=== PATIENT | male | born 1980 | race Caucasian/White ===

== ENCOUNTER 2017-07-01 13:30 | Emergency (ER) | payer SELFPAY ==
[~2017-07-01 13:30] MED LIST: ISOVUE-370 76%-LOCM 1 ML ONE
[2017-07-01 15:31] LABS: #Basophils 0.1 thou/uL (0.0-0.2); #Eosinphils 0.3 thou/uL (0.0-0.7); #Lymphocytes 3.1 thou/uL (1.20-3.40); #Monocytes 0.5 thou/uL (0.11-0.59); #Neutrophils 6.9 thou/uL (1.40-6.50); %Basophils 0.8 % (0.0-1.0); %Eosinophils 2.4 % (0.0-10.0); %Lymphocytes 28.5 % (21.0-51.0); %Monocytes 4.3 % (0.0-10.0); Hemoglobin 16.4 g/dL (14.0-18.0); Mean Corpuscular HGB CONC 32.8 g/dL (32.0-36.0); Mean Corpuscular Hemoglobin 30.4 pg (27.0-31.0); Mean Corpuscular Volume 92.8 fl (80.0-94.0); Mean Platelet Volume 6.7 fL (7.4-10.4); Platelet Count 240 thou/uL (130-400); RBC Distribution Width 14.9 % (11.5-14.5); Red Blood Cell (RBC) Count 5.39 mill/uL (4.70-6.10); White Blood Cell (WBC) Count 10.8 thou/uL (4.8-10.8)
[2017-07-01 15:50] LABS: Bilirubin Negative (Negative); Blood, Urine Negative (Negative); Clarity CLEAR (Clear); Glucose, Urine (Dipstick) Negative (Negative); Leukocyte Negative (Negative); Nitrite Negative (Negative); Protein, Urine (Dipstick) 30 mg/dL (Neg-Trace); Specific Gravity, Urine 1.009 (1.002-1.036); Urobilinogen 0.2 mg/dL (0.2-1.0); pH, Urine 6.5 (5.0-9.0)
[2017-07-01 15:53] LABS: Bacteria/HPF None Seen HPF (None Seen); Hyaline Casts/LPF 0-3 HYALINE CAST LPF (0-3 Hyaline); Pathc Cast-AUWi Flag 0.13 (0-2.49); RBC/HPF 0-3 HPF (0-3); Squamous Epithelial None Seen HPF (0-3); WBC/HPF 0-3 HPF (0-3)
[2017-07-01 15:57] LABS: ALT (SGPT) 49 U/L (8-55); AST (SGOT) 36 U/L (5-34); Albumin 3.8 g/dL (3.5-5.0); Alkaline Phosphatase 114 U/L (40-150); Anion Gap 12 mmol/L (10-20); BUN (Urea Nitrogen) 10 mg/dL (8.9-20.6); Bilirubin, Total 0.6 mg/dL (0.2-1.2); Calc. Creatinine Clearance 0 mL/min (70-130); Calcium 9.9 mg/dL (7.8-10.44); Carbon Dioxide 32 mmol/L (22-29); Chloride 93 mmol/L (98-107); Estimated GFR-MDRD Greater than 90; Globulin 5.7 g/dL (2.4-3.5); Glucose 144 mg/dL (70-105); Lipase 36 U/L (8-78); Potassium 4.2 mmol/L (3.5-5.1); Protein, Total 9.5 g/dL (6.0-8.3); Sodium 133 mmol/L (136-145)
--- NOTE | 2017-07-01 16:14 | CT ---
CT ABDOMEN AND PELVIS WITH CONTRAST: HISTORY: Evaluate hernia. Abdominal pain. COMPARISON: None. FINDINGS: The lung bases are clear. No pericardial effusion. The liver is markedly enlarged with cholesteatosis. There is a fat-containing umbilical hernia with a 1.4 x 1 cm neck. This does not contain bowel. The patient's full anterior abdominal wall is not included in the field of view due to habitus. No dilated loops of large or small bowel. The appendix is visualized and is normal. No free intrape ritoneal gas or fluid. Small fat-containing right-sided direct inguinal hernia. Numerous small lymph nodes in the inguinal region bilaterally. The aortoiliac contour is nonaneurysmal. Numerous small retroperitoneal periaortic lymph nodes are p resent, as well as common iliac lymph nodes and internal iliac lymph nodes, as well as pelvic sidewal l lymph nodes. The skeleton is unremarkable. There is a lot of noise artifact throughout the abdomen, making evalua tion for free air limited. The spleen, pancreas, and adrenal glands are unremarkable. The kidneys are unremarkable. IMPRESSION: 1. Fat-containing umbilical hernia with a 1.4 x 1 cm hiatus. This does not contain bowel. No evide nce of bowel obstruction. 2. Extensive noise artifact due to habitus, which limits evaluation for small locules of air, althou gh none are suspected. 3. Normal appendix. 4. Numerous small, retroperitoneal, as well as inguinal and pelvic sidewall lymph nodes. Low grade lymphoproliferative disorder is within the differential. Clinical correlation advised. 5. Hepatomegaly with steatosis. POS: OFF
== END 2017-07-01 16:35 | disposition home or self-care (01) ==
LOC: ERS 13:30
DX: K42.9 Umbilical hernia without obstruction or gangrene (principal); E11.40 Type 2 diabetes mellitus with diabetic neuropathy, unspecified; E66.9 Obesity, unspecified; F17.210 Nicotine dependence, cigarettes, uncomplicated
CPT/HCPCS: 74177; 80053; 81003; 81015; 83605; 83690; 85025; 99406

== ENCOUNTER 2017-11-08 16:57 | Inpatient (IN) | payer SELFPAY ==
[2017-11-08] MEDS ORDERED: Acetaminophen/Codeine 30-300mg Tablet ONE (17:28)
[2017-11-08 17:57] LABS: #Basophils 0.1 thou/uL (0.0-0.2); #Eosinphils 0.3 thou/uL (0.0-0.7); #Lymphocytes 3.2 thou/uL (1.20-3.40); #Monocytes 0.5 thou/uL (0.11-0.59); #Neutrophils 5.8 thou/uL (1.40-6.50); %Basophils 0.5 % (0.0-1.0); %Lymphocytes 32.6 % (21.0-51.0); %Monocytes 5.4 % (0.0-10.0); %Neutrophils 58.4 % (42.0-75.0); Hemoglobin 13.1 g/dL (14.0-18.0); Mean Corpuscular HGB CONC 34.2 g/dL (32.0-36.0); Mean Corpuscular Hemoglobin 30.2 pg (27.0-31.0); Mean Corpuscular Volume 88.3 fl (80.0-94.0); Mean Platelet Volume 6.4 fL (7.4-10.4); Platelet Count 313 thou/uL (130-400); RBC Distribution Width 14.5 % (11.5-14.5); Red Blood Cell (RBC) Count 4.32 mill/uL (4.70-6.10); White Blood Cell (WBC) Count 9.9 thou/uL (4.8-10.8)
[2017-11-08 18:17] LABS: ALT (SGPT) 53 U/L (8-55); AST (SGOT) 46 U/L (5-34); Albumin 3.2 g/dL (3.5-5.0); Alkaline Phosphatase 122 U/L (40-150); Anion Gap 13 mmol/L (10-20); BUN (Urea Nitrogen) 11 mg/dL (8.9-20.6); Bilirubin, Total 0.4 mg/dL (0.2-1.2); Calc. Creatinine Clearance 0 mL/min (70-130); Calcium 8.8 mg/dL (7.8-10.44); Carbon Dioxide 26 mmol/L (22-29); Chloride 100 mmol/L (98-107); Estimated GFR-MDRD Greater than 90; Glucose 189 mg/dL (70-105); Potassium 4.8 mmol/L (3.5-5.1); Protein, Total 8.2 g/dL (6.0-8.3); Sodium 134 mmol/L (136-145)
--- NOTE | 2017-11-08 18:44 | RAD ---
TWO VIEWS LEFT FORELE11/08/17 INDICATION: History of wound to the lea. COMPARISON: Prior exam dated 06/28/16. FINDINGS: Soft tissue wound involving the distal left lea is slightly increased in size from the comparison in 2016. There is diffuse prominent soft tissue swelling of the left foreleg. No acute osseous abnormal ity is evident. IMPRESSION: 1. Enlarging superficial wound of the anterior distal left foreleg. Diffuse lymphedema. 2. No acute osseous abnormality. POS: [facility]
[2017-11-08] MEDS ORDERED: Piperacillin/Tazobactam 4.5 GM VIAL ONE (20:17)
[2017-11-08] MEDS ORDERED: diphenhydrAMINE 50 MG/ML VIAL ONE (21:56)
[2017-11-08] MEDS ORDERED: Lorazepam 2 MG/ML VIAL ONE (22:02)
[2017-11-08] MEDS ORDERED: Propofol 1,000 MG/100 ML VIAL IV ONE (22:31)
[2017-11-08] MEDS ORDERED: Succinylcholine Chloride 20 MG/ML 10 ml SYRINGE FS ONE ×2 (22:31→22:48)
[2017-11-08 22:45] LABS: CKMB 0.9 ng/mL (0-6.6); Troponin I Less than 0.010 ng/mL (< 0.028)
[2017-11-08] MEDS ORDERED: EPINEPHrine 1 MG/10 ML Abboject SYRINGE ONE (23:00)
[2017-11-08 23:23] LABS: Bilirubin Negative (Negative); Blood, Urine Negative (Negative); Clarity CLEAR (Clear); Glucose, Urine (Dipstick) 100 mg/dL (Negative); Leukocyte Negative (Negative); Nitrite Negative (Negative); Protein, Urine (Dipstick) 30 mg/dL (Neg-Trace); Specific Gravity, Urine 1.025 (1.002-1.036); pH, Urine 6.5 (5.0-9.0)
[2017-11-08 23:25] LABS: Bacteria/HPF None Seen HPF (None Seen); Hyaline Casts/LPF 0-3 HYALINE CAST LPF (0-3 Hyaline); Pathc Cast-AUWi Flag 0.14 (0-2.49); RBC/HPF 0-3 HPF (0-3); Squamous Epithelial None Seen HPF (0-3); WBC/HPF None Seen HPF (0-3)
--- NOTE | 2017-11-08 23:41 | RAD ---
AP VIEW OF THE CHEST: 11/08/17 INDICATION: Emergency examination. COMPARISON: Prior exam dated 06/03/03. FINDINGS: Patient is intubated. ET tube tip is seen 3.8 cm from the level of the parth. Gastric catheter proje cts below the left hemidiaphragm beyond the field of view. The visualized lungs are clear. The heart size is accentuated by the exam technique but is felt to be mildly prominent. There is slight promine nce of the pulmonary vasculature. No pleural effusions grossly evident. No definite pneumothorax is n oted. IMPRESSION: 1. Intubation. 2. Gastric catheter placement. 3. Mild cardiomegaly with mild pulmonary vascular congestion. POS: [facility]
[2017-11-09] MEDS ORDERED: Norepinephrine 8 MG/0.9% NS 250 ML ONE (00:11)
[2017-11-09] MEDS ORDERED: Acetaminophen 325 MG TAB PO PRN (02:07)
[2017-11-09] MEDS ORDERED: Ondansetron HCl/PF 4 MG/2 ML Vial IVP PRN ×2 (02:07→02:12)
[2017-11-09] MEDS ORDERED: Ondansetron ODT 4 MG TAB SL PRN (02:07)
[2017-11-09] MEDS ORDERED: Norepinephrine 8 MG in Sodium Chloride 0.9% 250 ML 250 ML IVPB PRN (02:12)
[2017-11-09] MEDS ORDERED: Bisacodyl 10 MG SUPP PR PRN (02:12)
[2017-11-09] MEDS ORDERED: Acetaminophen 650 MG Suppository PR PRN (02:12)
[2017-11-09] MEDS ORDERED: CCU Electrolyte Replacement 1 EACH IVPB SCH (02:12)
[2017-11-09] MEDS ORDERED: Insulin Regular 300 UNITS/3 ML VIAL SC PRN (02:12)
[2017-11-09] MEDS ORDERED: Ventilator Sedation Protocol 1 EACH FS SCH (02:15)
[2017-11-09] MEDS ORDERED: Fentanyl BOLUS 250 ML IVPB PRN (02:19)
[2017-11-09] MEDS ORDERED: Propofol BOLUS 1,000 MG/100 ML VIAL IV PRN (02:19)
[2017-11-09] MEDS ORDERED: DISCONTINUE PREVIOUS NARCOTIC PAIN MEDICATIONS AND BENZODIAZEPINES FS SCH (02:19)
[2017-11-09] MEDS ORDERED: Morphine 4 MG/ML VIAL SLOW IVP PRN (02:19)
[2017-11-09] MEDS ORDERED: Lorazepam 2 MG/ML VIAL SLOW IVP PRN (02:19)
[2017-11-09] MEDS ORDERED: Potassium Phosphate 9 MMOL in Sodium Chloride 0.9% 100 ML IVPB PRN (02:22)
[2017-11-09] MEDS ORDERED: Potassium Chloride 20 MEQ TAB PO PRN (02:22)
[2017-11-09] MEDS ORDERED: Potassium Phosphate 12 MMOL in Sodium Chloride 0.9% 250 ML 250 ML IV PRN (02:22)
[2017-11-09] MEDS ORDERED: CCU ELECTROLYTE REPLACEMENT PROTOCOL FS PRN (02:22)
[2017-11-09] MEDS ORDERED: Potassium Phosphate 15 MMOL in Sodium Chloride 0.9% 250 ML 250 ML IV PRN (02:22)
[2017-11-09] MEDS ORDERED: Magnesium Oxide 400 MG TAB PO PRN ×2 (02:22)
[2017-11-09] MEDS ORDERED: Magnesium 2 GM/NS 0.9% 100 ML 2 GM in Premix Bag 1 BAG IVPB PRN (02:22)
[2017-11-09] MEDS ORDERED: Potassium Chloride 40 MEQ in Sodium Chloride 0.9% 250 ML 250 ML IVPB PRN (02:22)
[2017-11-09] MEDS ORDERED: Dextrose 5% in Water 1,000 ML IV PRN ×2 (02:32→12:41)
[2017-11-09] MEDS ORDERED: Dextrose 50% Abboject 50 ML SYRINGE IVP PRN (02:32)
[2017-11-09] MEDS ORDERED: Piperacillin/Tazobactam 3.375 GM in Sodium Chloride 0.9% 100 ML IVPB SCH (03:00)
[2017-11-09] MEDS ORDERED: Succinylcholine Chloride 20 MG/ML 10 ml SYRINGE FS ONE (03:00)
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
[2017-11-09] MEDS ORDERED: Vancomycin HCl 1 GM in Premix Bag 1 BAG IVPB SCH ×2 (03:30→10:15)
[2017-11-09] MEDS: Propofol 1,000 MG/100 ML VIAL IV PRN ×8 (03:33→22:37)
[2017-11-09] MEDS: Sodium Chloride 0.9% 1,000 ML IV SCH ×3 (03:33→18:43)
[2017-11-09 03:34] LABS: CO2 Tension 52.6 mmHg (35.0-45.0)
[2017-11-09 03:35] LABS: Actual Bicarbonate (HCO3a) 25.3 mEq/L (22-26); Base Excess (BEa) -1.8 mEq/L (0 (+/-) 2.5); Calcium, Ionized 1.1 mmol/L (1.12-1.30); Hematocrit-ABG 49.1 % (42.0-52.0); Hemoglobin (Hb) 14.7 g/dL (14.0-18.0); Puncture Site RRAD
--- NOTE | 2017-11-09 05:01 | PDOC.EVN ---
Event Note - Event Note Event Note: Code Arturo called at 0431 when patient self-extubated. Residents arrived at room at 0434 and patient's saturations were noted to be in the low 80s with pulse in the 60s. In anticipation of a difficult airway, anesthesia was paged to the bedside. Nasal cannula applied with immediate rise on O2 sat. Patient was then noted to become progressively bradycardic to the 40s with palpable pulse and desaturating again to the 70s. Due to inability to adequately ventilate patient with bag-mask ventilation, 30 mg Etomidate and 100 mg Succinylcholine were administered IV and glidescope was used to visualie airway. Inadequate visualization noted, patient bagged again with appropriate rise on O2 saturation and glidescope tubing changed. At this time, LATANYA Fisher was at bedside and assisted in 2nd attempt with successful intubation with 8-0 cuffed ET tube with good color change and BL breath sounds noted. Patient otherwise tachycardic but hemodynamically stable. STAT CXR ordered to confirm tube placement showed ET tube to be above parth.
[2017-11-09] MEDS: Piperacillin/Tazobactam 3.375 GM in Sodium Chloride 0.9% 100 ML IVPB SCH ×3 (06:43→17:48)
[2017-11-09] MEDS: fentaNYL Citrate/PF 2,000 MCG in Sodium Chloride 0.9% 60 ML IV SCH (07:54)
[2017-11-09] MEDS: Enoxaparin Sodium 40 MG/0.4 ML SYRINGE SC SCH (07:59)
[2017-11-09 08:41] LABS: Hemoglobin 13.9 g/dL (14.0-18.0); Mean Corpuscular HGB CONC 33.1 g/dL (32.0-36.0); Mean Corpuscular Hemoglobin 29.6 pg (27.0-31.0); Mean Corpuscular Volume 89.6 fl (80.0-94.0); Mean Platelet Volume 7.2 fL (7.4-10.4); Platelet Count 465 thou/uL (130-400); RBC Distribution Width 14.9 % (11.5-14.5); Red Blood Cell (RBC) Count 4.71 mill/uL (4.70-6.10); White Blood Cell (WBC) Count 26.5 thou/uL (4.8-10.8)
[2017-11-09 08:49] LABS: Anion Gap 11 mmol/L (10-20); BUN (Urea Nitrogen) 16 mg/dL (8.9-20.6); Calc. Creatinine Clearance 180 mL/min (70-130); Calcium 7.5 mg/dL (7.8-10.44); Carbon Dioxide 26 mmol/L (22-29); Chloride 103 mmol/L (98-107); Estimated GFR-MDRD 59; Glucose 278 mg/dL (70-105); Potassium 5.3 mmol/L (3.5-5.1); Sodium 135 mmol/L (136-145)
[2017-11-09 08:59] LABS: Band 8 % (5-11); Eosinophils 2 % (0-10); Lymphocytes 12 % (21-51); MDiff Complete? YES; Neutrophil 75 % (42-75); Reactive Lymphocytes 3 % (0-10)
[2017-11-09] MEDS: Famotidine/PF 20 mg/2ml Vial SLOW IVP SCH (10:39)
--- NOTE | 2017-11-09 11:22 | RAD ---
PORTABLE AP CHEST XRAY: DATE: 11/09/17. HISTORY: Central line placement. COMPARISON: 10/31/17. FINDINGS: Endotracheal tube is noted in place with the tip overlying the T4 vertebral body above the level of t he parth. Nasogastric tube is noted in place which courses into the left upper quadrant, but the ti p is not visualized. A right internal jugular vein central venous catheter is noted in place with th e tip overlying the expected location of the right atrium. The right lung apex is partially occluded from view, but no obvious pneumothorax is seen. There is bibasilar atelectasis present. A tiny lef t pleural effusion cannot be entirely excluded, but the bronchovascular markings and cardiac silhouet te are accentuated by shallow depth of inspiration and portable technique. IMPRESSION: 1. Right internal jugular vein central venous catheter noted in place. While the most superior aspe ct right lung apex is excluded from view, no obvious pneumothorax is seen and there is no pleural eff usion. 2. Endotracheal tube and nasogastric tube remain in place. 3. Accentuation of bronchovascular markings due to a shallow depth of inspiration. POS: [facility]
--- NOTE | 2017-11-09 11:25 | RAD ---
CHEST 1 VIEW: COMPARISON: 11/09/17. History Reintubation. FINDINGS: The previously noted nasogastric tube is no longer seen. Endotracheal tube extends beyond the clavic le and terminates approximately 1.5 cm above the parth. Stable right-sided central venous catheter. There is opacification of the left hemithorax likely due to atelectasis. No pneumothorax. IMPRESSION: 1. Endotracheal tube as above. 2. Interval increased opacification of the left lung, possibly due to atelectasis. CODE T POS: [facility]
[2017-11-09] MEDS ORDERED: Dextrose 50% Abboject 50 ML SYRINGE SLOW IVP PRN (12:41)
[2017-11-09] MEDS: HumaLOG 300 UNITS/3 ML VIAL SC PRN ×2 (13:02→17:49)
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
[2017-11-09 22:25] LABS: Amphetamine Not Detected (NotDetected); Barbiturates Screen Not Detected (NotDetected); Benzodiazepine Screen Detected (NotDetected); Cocaine Metabolite Screen Not Detected (NotDetected); Medtox Control Line Valid? VALID (VALID); Medtox Reader # READER 1; Methadone Not Detected (NotDetected); Methamphetamine Not Detected (NotDetected); Opiate Screen Detected (NotDetected); Oxycodone Screen Not Detected (NotDetected); Phencyclidine (PCP) Not Detected (NotDetected); THC/Cannabinoid Screen Not Detected (NotDetected); Tricyclic Screen Not Detected (NotDetected)
[2017-11-10] MEDS: Sodium Chloride 0.9% 1,000 ML IV SCH ×3 (00:40→16:52)
[2017-11-10] MEDS: Famotidine/PF 20 mg/2ml Vial SLOW IVP SCH ×2 (00:41→09:48)
[2017-11-10] MEDS: Propofol 1,000 MG/100 ML VIAL IV PRN ×9 (00:41→21:34)
[2017-11-10] MEDS: Piperacillin/Tazobactam 3.375 GM in Sodium Chloride 0.9% 100 ML IVPB SCH ×5 (00:42→23:38)
[2017-11-10] MEDS: HumaLOG 300 UNITS/3 ML VIAL SC PRN ×5 (00:57→23:39)
[2017-11-10] MEDS: fentaNYL Citrate/PF 2,000 MCG in Sodium Chloride 0.9% 60 ML IV SCH ×2 (03:54→20:53)
[2017-11-10 06:44] LABS: Hemoglobin 12.1 g/dL (14.0-18.0); Mean Corpuscular HGB CONC 32.6 g/dL (32.0-36.0); Mean Corpuscular Hemoglobin 29.3 pg (27.0-31.0); Mean Corpuscular Volume 89.9 fl (80.0-94.0); Mean Platelet Volume 6.5 fL (7.4-10.4); Platelet Count 301 thou/uL (130-400); RBC Distribution Width 14.8 % (11.5-14.5); Red Blood Cell (RBC) Count 4.11 mill/uL (4.70-6.10)
[2017-11-10 07:07] LABS: Anion Gap 9 mmol/L (10-20); BUN (Urea Nitrogen) 13 mg/dL (8.9-20.6); Calc. Creatinine Clearance 236 mL/min (70-130); Calcium 7.4 mg/dL (7.8-10.44); Carbon Dioxide 24 mmol/L (22-29); Chloride 107 mmol/L (98-107); Estimated GFR-MDRD 78; Glucose 284 mg/dL (70-105); Potassium 4.6 mmol/L (3.5-5.1); Sodium 135 mmol/L (136-145)
[2017-11-10 07:13] LABS: Actual Bicarbonate (HCO3a) 22.9 mEq/L (22-26); Base Excess (BEa) -2.2 mEq/L (0 (+/-) 2.5); CO2 Tension 40.4 mmHg (35.0-45.0); Hematocrit-ABG 36.2 % (42.0-52.0); Hemoglobin (Hb) 11.2 g/dL (14.0-18.0); O2 Tension (PaO2) 70.7 mmHg (80.0-100.0); pH, Arterial 7.37 (7.35-7.45)
[2017-11-10 07:14] LABS: Calcium, Ionized 1.1 mmol/L (1.12-1.30); Puncture Site LRA
[2017-11-10] MEDS ORDERED: Propofol 1,000 MG/100 ML VIAL IV ONE (07:32)
[2017-11-10 07:57] LABS: Band 10 % (5-11); Eosinophils 1 % (0-10); Lymphocytes 10 % (21-51); MDiff Complete? YES; Metamyelocyte 1 % (0-0); Monocytes 3 % (0-10); Neutrophil 74 % (42-75); RBC Morphology Normal; Reactive Lymphocytes 1 % (0-10)
[2017-11-10] MEDS: Pantoprazole 40 MG VIAL IVP SCH (09:14)
[2017-11-10] MEDS: Enoxaparin Sodium 40 MG/0.4 ML SYRINGE SC SCH (09:18)
--- NOTE | 2017-11-10 09:41 | RAD ---
CHEST 1 VIEW: Date: 11/10/17 HISTORY: Dyspnea. Follow-up. COMPARISON: 11/09/17. FINDINGS: Cardiac silhouette remains magnified, enlarged, and partially obscured by worsening patchy bibasilar infiltrates. Pulmonary vasculature is more engorged with increasing bilateral perihilar infiltrates. Endotracheal catheter tip is now approximately 2.0 cm above the parth. Other lines and tubes are unc hanged in position. rotary cutter feeder leads overlie the chest. IMPRESSION: Worsening pulmonary edema. POS: [facility]
--- NOTE | 2017-11-10 13:20 | PDOC.PN ---
- Subjective Encounter Start Date: 11/10/17 Encounter Start Time: 09:00 -: old records requested/rev Patient seen and examined for respiratory failure. No overnight events - Objective Resuscitation Status: Resuscitation Status FULL:Full Resuscitation MAR Reviewed: Yes Vital Signs & Weight: Vital Signs (12 hours) Temp Pulse Resp BP Pulse Ox 11/10/17 13:11 70 106/50 L 11/10/17 12:00 98.4 F 11/10/17 10:47 73 99/45 L 11/10/17 10:00 16 11/10/17 08:00 98.3 F 80 16 92 L 11/10/17 07:00 98.8 F 11/10/17 06:55 75 112/48 L 11/10/17 06:53 74 16 93 L 11/10/17 06:00 18 11/10/17 05:00 98.9 F 11/10/17 04:01 73 11/10/17 04:00 16 11/10/17 02:00 16 Weight Weight 386 lb 0.47 oz Most Recent Monitor Data Heart Rate from ECG 74 NIBP 97/44 NIBP BP-Mean 63 Respiration from ECG 16 SpO2 92 I&O: 11/09/17 11/10/17 11/11/17 06:59 06:59 06:59 Intake Total 3692.4 Output Total 345 2110 520 Balance -345 1582.4 -520 Result Diagrams: 11/10/17 06:00 11/10/17 06:00 Additional Labs: Accuchecks 11/10/17 11/10/17 11/10/17 09:43 06:04 00:58 POC Glucose 221 H 264 H 270 H 11/09/17 17:48 POC Glucose 204 H Radiology Reviewed by me: Yes (chest xray) EKG Reviewed by me: Yes (nsr) Phys Exam - Physical Examination Constitutional: NAD intubated HEENT: PERRLA, sclera anicteric Neck: no JVD, supple Respiratory: no wheezing, no rales, no rhonchi limited due to obesity Cardiovascular: RRR, no significant murmur, no rub Gastrointestinal: soft, no distention, positive bowel sounds obesity+ chronic skin changes, with wound over left leg Lymphatic: no nodes Dx/Plan (1) Acute encephalopathy Code(s): G93.40 - ENCEPHALOPATHY, UNSPECIFIED Status: Acute (2) Acute respiratory failure with hypoxia Code(s): J96.01 - ACUTE RESPIRATORY FAILURE WITH HYPOXIA Status: Acute (3) Hypotension Status: Acute (4) HLD (hyperlipidemia) Code(s): E78.5 - HYPERLIPIDEMIA, UNSPECIFIED Status: Chronic (5) Lymphedema of both lower extremities Code(s): I89.0 - LYMPHEDEMA, NOT ELSEWHERE CLASSIFIED Status: Chronic (6) Morbid obesity with BMI of 45.0-49.9, adult Code(s): E66.01 - MORBID (SEVERE) OBESITY DUE TO EXCESS CALORIES; Z68.42 - BODY MASS INDEX (BMI) 45.0-49.9, ADULT Status: Chronic (7) Tobacco abuse Code(s): Z72.0 - TOBACCO USE Status: Chronic (8) Wound of left lower extremity Code(s): S81.802A - UNSPECIFIED OPEN WOUND, LEFT LOWER LEG, INITIAL ENCOUNTER Status: Chronic (9) DAVID (obstructive sleep apnea) Code(s): G47.33 - OBSTRUCTIVE SLEEP APNEA (ADULT) (PEDIATRIC) Status: Suspected (10) Acute kidney failure Status: Resolved - Plan cont current plan of care, continue antibiotics * vent as per pulmonary * continue zosyn * wound care * medication reviewed as below * symptomatic treatment * Dc IVF * continue solumedrol * levophed if needed. Review of Systems - Review of Systems Other: unable to review due to intubated status - Medications/Allergies Allergies/Adverse Reactions: Allergies Allergy/AdvReac Type Severity Reaction Status Date / Time vancomycin Allergy Verified 11/09/17 05:23 Medications: Current Medications Acetaminophen (Tylenol) 650 mg SD Q4H PRN PRN Reason: Headache/Fever or Pain Acetaminophen (Tylenol) 650 mg PER TUBE Q4H PRN PRN Reason: Headache/Fever or Pain Albuterol/Ipratropium (Duoneb) 3 ml NEB [id number] [facility] Last Admin: 11/10/17 10:46 Dose: 3 ml Bisacodyl (Dulcolax) 10 mg SD Q24H PRN PRN Reason: Constipation Dextrose/Water (Dextrose 50%) 25 gm SLOW IVP PRN PRN PRN Reason: Hypoglycemia Enoxaparin Sodium (Lovenox) 40 mg SC 0900 [facility] Last Admin: 11/10/17 09:18 Dose: 40 mg Glucagon (Glucagon) 1 mg IM PRN PRN PRN Reason: Hypoglycemia Fentanyl Citrate 2,000 mcg/ (Sodium Chloride) 100 mls @ 0 mls/hr IV INF RADHA PRN Reason: As Directed Last Admin: 11/10/17 03:54 Dose: 100 mls Norepinephrine Bitartrate 8 mg (/ Sodium Chloride) 258 mls @ 0 mls/hr IVPB PRN PRN; Protocol; Titrate PRN Reason: To maintain MAP > 65 Last Admin: 11/09/17 12:56 Dose: 258 mls Fentanyl Citrate (Fentanyl Bolus) 250 mls @ 0 mls/hr IVPB PRN PRN; As Directed PRN Reason: Breakthrough pain/agitation Stop: 12/09/17 02:19 Potassium Chloride 40 meq/ (Sodium Chloride) 270 mls @ 135 mls/hr IVPB ASDIR PRN PRN Reason: FOR SERUM K+ 2.5 - 3.5 Potassium Chloride 40 meq/ (Device) 100 mls @ 50 mls/hr IVPB ASDIR PRN PRN Reason: FOR SERUM K+ 2.5 - 3.5 Magnesium Sulfate 1 gm/ Sodium (Chloride) 102 mls @ 102 mls/hr IV PRN PRN PRN Reason: MAG LEVEL 1.4 - 2.0 Magnesium Sulfate 2 gm/ Device 100 mls @ 100 mls/hr IVPB ASDIR PRN PRN Reason: MAGNESIUM < 1.4 Potassium Phosphate 9 mmol/ (Sodium Chloride) 103 mls @ 25.75 mls/hr IVPB ASDIR PRN PRN Reason: Phosphate 1.0-1.8 Potassium Phosphate 12 mmol/ (Sodium Chloride) 254 mls @ 63.5 mls/hr IV ASDIR PRN PRN Reason: Serum phosphate 0.5-0.9 Potassium Phosphate 15 mmol/ (Sodium Chloride) 255 mls @ 63.75 mls/hr IV ASDIR PRN PRN Reason: Serum Phos < 0.5 Piperacillin Sod/Tazobactam (Sod 3.375 gm/ Sodium Chloride) 100 mls @ 200 mls/ hr IVPB Q6HR [facility] Last Admin: 11/10/17 11:33 Dose: 100 mls Dextrose/Water (D5w) 1,000 mls @ 0 mls/hr IV .Q0M PRN; As Directed PRN Reason: Hypoglycemia Insulin Human Lispro (Humalog) 0 units SC .AGGRESSIVE SLIDING PRN; Protocol PRN Reason: AGGRESSIVE SLIDING SCALE Last Admin: 11/10/17 09:42 Dose: 6 unit Lorazepam (Ativan) 2 mg SLOW IVP Q1H PRN PRN Reason: Breakthrough agitation Stop: 12/09/17 02:19 Magnesium Oxide (Magnesium Oxide) 400 mg PO BIDPRN PRN PRN Reason: FOR SERUM MAG 1.4 - 2.0 Magnesium Oxide (Magnesium Oxide) 800 mg PO PRN PRN PRN Reason: FOR SERUM MAG < 1.4 Methylprednisolone Sodium Succinate (Solu-Medrol) 40 mg IVP DAILY [facility] Last Admin: 11/10/17 09:35 Dose: 40 mg Miscellaneous Medication (Phos-Nak) 1 pkt PO TIDPRN PRN PRN Reason: FOR PHOS LEVEL 1.0 - 1.8 Miscellaneous Medication (Phos-Nak) 2 pkt PO TIDPRN PRN PRN Reason: FOR PHOS LEVEL 0.5 - 1.0 Morphine Sulfate (Morphine) 2 mg SLOW IVP Q1H PRN PRN Reason: breakthrough pain/agitation Stop: 12/09/17 02:19 Discontinue Previous Narcotic Pain Medications And Benzodiazepines 1 each FS .ONE RADHA Stop: 12/09/17 02:19 Ccu Electrolyte (Replacement Protocol) 0 each FS PRN PRN PRN Reason: FOR ELECTROLYTE REPLACEMENT Ondansetron HCl (Zofran) 4 mg IVP Q6H PRN PRN Reason: Nausea/Vomiting Pantoprazole Sodium (Protonix) 40 mg IVP 0900 [facility] Last Admin: 11/10/17 09:14 Dose: 40 mg Potassium Chloride (K-Dur) 40 meq PO ASDIR PRN PRN Reason: FOR SERUM K+ 2.5 - 3.5 Potassium Chloride (Klor-Con) 40 meq PER TUBE ASDIR PRN PRN Reason: FOR SERUM K+ 2.5-3.5 Propofol (Diprivan) 1,000 mg IV INF PRN; Protocol PRN Reason: TO ACHIEVE GOAL RASS Stop: 12/09/17 02:19 Last Admin: 11/10/17 11:36 Dose: 1,000 mg Propofol (Diprivan Bolus) 20 mg IV Q5MIN PRN PRN Reason: BREAKTHROUGH AGITATION Stop: 12/09/17 02:19
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
[2017-11-11] MEDS: Propofol 1,000 MG/100 ML VIAL IV PRN ×10 (00:23→19:00)
[2017-11-11] MEDS: Piperacillin/Tazobactam 3.375 GM in Sodium Chloride 0.9% 100 ML IVPB SCH ×4 (06:19→22:59)
[2017-11-11 06:20] LABS: Anion Gap 10 mmol/L (10-20); BUN (Urea Nitrogen) 14 mg/dL (8.9-20.6); Calc. Creatinine Clearance 311 mL/min (70-130); Calcium 7.6 mg/dL (7.8-10.44); Carbon Dioxide 23 mmol/L (22-29); Chloride 108 mmol/L (98-107); Estimated GFR-MDRD Greater than 90; Glucose 150 mg/dL (70-105); Potassium 4.3 mmol/L (3.5-5.1); Sodium 137 mmol/L (136-145)
[2017-11-11 06:26] LABS: Band 2 % (5-11); Hemoglobin 10.8 g/dL (14.0-18.0); Lymphocytes 22 % (21-51); MDiff Complete? YES; Mean Corpuscular HGB CONC 31.7 g/dL (32.0-36.0); Mean Corpuscular Hemoglobin 28.4 pg (27.0-31.0); Mean Corpuscular Volume 89.6 fl (80.0-94.0); Mean Platelet Volume 6.4 fL (7.4-10.4); Monocytes 2 % (0-10); Neutrophil 74 % (42-75); Platelet Count 275 thou/uL (130-400); White Blood Cell (WBC) Count 13.3 thou/uL (4.8-10.8)
[2017-11-11] MEDS: Enoxaparin Sodium 40 MG/0.4 ML SYRINGE SC SCH (09:33)
[2017-11-11] MEDS: Pantoprazole 40 MG VIAL IVP SCH (09:33)
--- NOTE | 2017-11-11 09:45 | RAD ---
PORTABLE AP CHEST RADIOGRAPH: Date: 11-11-17 History: Follow up evaluation. Patient on ventilator. Comparison: 11-10-17 FINDINGS: Endotracheal tube, nasogastric tube, and right internal jugular vein central venous catheters remain in place. Cardiac silhouette is enlarged and magnified by projection. There does appear to be increas ing pulmonary vascular congestion. However, the patchy opacities in the right perihilar regions are m ildly improved. However, the bilateral perihilar interstitial opacities do persist and may be related to asymmetric pulmonary edema. No other interval change. IMPRESSION: 1. Mild improvement in the interstitial opacities, but bilateral perihilar interstitial densities do persist and findings may be related to pulmonary edema. 2. Cardiomegaly. 3. Lines and tubes stable in position. POS: OFF
[2017-11-11] MEDS ORDERED: Atropine Sulfate 1 mg/10 ml Syringe ONE (11:42)
--- NOTE | 2017-11-11 13:00 | PDOC.PN ---
- Subjective Encounter Start Date: 11/11/17 Encounter Start Time: 09:45 Patient seen and examined for respi failure. No overnight events - Objective Resuscitation Status: Resuscitation Status FULL:Full Resuscitation MAR Reviewed: Yes Vital Signs & Weight: Vital Signs (12 hours) Pulse Resp BP Pulse Ox 11/11/17 10:23 65 120/77 11/11/17 10:22 65 16 93 L 11/11/17 09:17 66 11/11/17 07:15 64 97/45 L 11/11/17 06:00 19 11/11/17 04:00 18 11/11/17 02:40 79 97/45 L 11/11/17 02:00 16 Weight Admit Weight 373 lb Weight 376 lb 15.847 oz Most Recent Monitor Data Heart Rate from ECG 62 NIBP 120/77 NIBP BP-Mean 85 Respiration from ECG 19 SpO2 96 I&O: 11/10/17 11/11/17 11/12/17 06:59 06:59 06:59 Intake Total 3692.4 4180.15 Output Total 2110 2470 Balance 1582.4 1710.15 Result Diagrams: 11/11/17 05:00 11/11/17 05:00 Additional Labs: Accuchecks 11/11/17 11/11/17 11/10/17 12:11 05:04 23:34 POC Glucose 194 H 149 H 248 H 11/10/17 11/10/17 16:31 16:29 POC Glucose 272 H 275 H EKG Reviewed by me: Yes (nsr) Phys Exam - Physical Examination Constitutional: NAD on ventilator HEENT: PERRLA, sclera anicteric Neck: no JVD, supple Respiratory: no wheezing, no rales, no rhonchi Cardiovascular: RRR, no significant murmur, no rub Gastrointestinal: soft, no distention, positive bowel sounds morbid obesity+ chronic skin changes both leg with wound on left leg unable to assess Lymphatic: no nodes Deviation from normal: unable to assess Dx/Plan (1) Acute encephalopathy Code(s): G93.40 - ENCEPHALOPATHY, UNSPECIFIED Status: Acute (2) Acute respiratory failure with hypoxia Code(s): J96.01 - ACUTE RESPIRATORY FAILURE WITH HYPOXIA Status: Acute (3) Hypotension Status: Acute (4) HLD (hyperlipidemia) Code(s): E78.5 - HYPERLIPIDEMIA, UNSPECIFIED Status: Chronic (5) Lymphedema of both lower extremities Code(s): I89.0 - LYMPHEDEMA, NOT ELSEWHERE CLASSIFIED Status: Chronic (6) Morbid obesity with BMI of 45.0-49.9, adult Code(s): E66.01 - MORBID (SEVERE) OBESITY DUE TO EXCESS CALORIES; Z68.42 - BODY MASS INDEX (BMI) 45.0-49.9, ADULT Status: Chronic (7) Tobacco abuse Code(s): Z72.0 - TOBACCO USE Status: Chronic (8) Wound of left lower extremity Code(s): S81.802A - UNSPECIFIED OPEN WOUND, LEFT LOWER LEG, INITIAL ENCOUNTER Status: Chronic (9) DAVID (obstructive sleep apnea) Code(s): G47.33 - OBSTRUCTIVE SLEEP APNEA (ADULT) (PEDIATRIC) Status: Suspected (10) Acute kidney failure Status: Resolved - Plan cont current plan of care, plan discussed w/ family, continue antibiotics, social media marketer, respiratory therapy * I spoke with pt's mother and updated about current condition * medication reviewed as below * symptomatic treatment * vent as per pulmonary * wound care * continue empiric antibiotics * will need placement once stable for discharge. Review of Systems - Review of Systems Other: unable to review as pt is intubated - Medications/Allergies Allergies/Adverse Reactions: Allergies Allergy/AdvReac Type Severity Reaction Status Date / Time vancomycin Allergy Verified 11/09/17 05:23 Medications: Current Medications Acetaminophen (Tylenol) 650 mg LA Q4H PRN PRN Reason: Headache/Fever or Pain Acetaminophen (Tylenol) 650 mg PER TUBE Q4H PRN PRN Reason: Headache/Fever or Pain Albuterol/Ipratropium (Duoneb) 3 ml NEB [id number] REPLACED BY [facility] Last Admin: 11/11/17 10:22 Dose: 3 ml Bisacodyl (Dulcolax) 10 mg LA Q24H PRN PRN Reason: Constipation Dextrose/Water (Dextrose 50%) 25 gm SLOW IVP PRN PRN PRN Reason: Hypoglycemia Enoxaparin Sodium (Lovenox) 40 mg SC 0900 REPLACED BY [facility] Last Admin: 11/11/17 09:33 Dose: 40 mg Glucagon (Glucagon) 1 mg IM PRN PRN PRN Reason: Hypoglycemia Haloperidol Lactate (Haldol) 10 mg IM Q4H REPLACED BY [facility] Fentanyl Citrate 2,000 mcg/ (Sodium Chloride) 100 mls @ 0 mls/hr IV INF RADHA PRN Reason: As Directed Last Admin: 11/10/17 20:53 Dose: 100 mls Norepinephrine Bitartrate 8 mg (/ Sodium Chloride) 258 mls @ 0 mls/hr IVPB PRN PRN; Protocol; Titrate PRN Reason: To maintain MAP > 65 Last Admin: 11/09/17 12:56 Dose: 258 mls Fentanyl Citrate (Fentanyl Bolus) 250 mls @ 0 mls/hr IVPB PRN PRN; As Directed PRN Reason: Breakthrough pain/agitation Stop: 12/09/17 02:19 Potassium Chloride 40 meq/ (Sodium Chloride) 270 mls @ 135 mls/hr IVPB ASDIR PRN PRN Reason: FOR SERUM K+ 2.5 - 3.5 Potassium Chloride 40 meq/ (Device) 100 mls @ 50 mls/hr IVPB ASDIR PRN PRN Reason: FOR SERUM K+ 2.5 - 3.5 Magnesium Sulfate 1 gm/ Sodium (Chloride) 102 mls @ 102 mls/hr IV PRN PRN PRN Reason: MAG LEVEL 1.4 - 2.0 Magnesium Sulfate 2 gm/ Device 100 mls @ 100 mls/hr IVPB ASDIR PRN PRN Reason: MAGNESIUM < 1.4 Potassium Phosphate 9 mmol/ (Sodium Chloride) 103 mls @ 25.75 mls/hr IVPB ASDIR PRN PRN Reason: Phosphate 1.0-1.8 Potassium Phosphate 12 mmol/ (Sodium Chloride) 254 mls @ 63.5 mls/hr IV ASDIR PRN PRN Reason: Serum phosphate 0.5-0.9 Potassium Phosphate 15 mmol/ (Sodium Chloride) 255 mls @ 63.75 mls/hr IV ASDIR PRN PRN Reason: Serum Phos < 0.5 Piperacillin Sod/Tazobactam (Sod 3.375 gm/ Sodium Chloride) 100 mls @ 200 mls/ hr IVPB Q6HR RADHA Last Admin: 11/11/17 11:51 Dose: 100 mls Dextrose/Water (D5w) 1,000 mls @ 0 mls/hr IV .Q0M PRN; As Directed PRN Reason: Hypoglycemia Insulin Human Lispro (Humalog) 0 units SC .AGGRESSIVE SLIDING PRN; Protocol PRN Reason: AGGRESSIVE SLIDING SCALE Last Admin: 11/10/17 23:39 Dose: 4 unit Lorazepam (Ativan) 2 mg SLOW IVP Q1H PRN PRN Reason: Breakthrough agitation Stop: 12/09/17 02:19 Lorazepam (Ativan) 1 mg SLOW IVP Q4H REPLACED BY [facility] Magnesium Oxide (Magnesium Oxide) 400 mg PO BIDPRN PRN PRN Reason: FOR SERUM MAG 1.4 - 2.0 Magnesium Oxide (Magnesium Oxide) 800 mg PO PRN PRN PRN Reason: FOR SERUM MAG < 1.4 Methylprednisolone Sodium Succinate (Solu-Medrol) 40 mg IVP DAILY REPLACED BY [facility] Last Admin: 11/11/17 09:33 Dose: 40 mg Miscellaneous Medication (Phos-Nak) 1 pkt PO TIDPRN PRN PRN Reason: FOR PHOS LEVEL 1.0 - 1.8 Miscellaneous Medication (Phos-Nak) 2 pkt PO TIDPRN PRN PRN Reason: FOR PHOS LEVEL 0.5 - 1.0 Morphine Sulfate (Morphine) 2 mg SLOW IVP Q1H PRN PRN Reason: breakthrough pain/agitation Stop: 12/09/17 02:19 Discontinue Previous Narcotic Pain Medications And Benzodiazepines 1 each FS .ONE RADHA Stop: 12/09/17 02:19 Ccu Electrolyte (Replacement Protocol) 0 each FS PRN PRN PRN Reason: FOR ELECTROLYTE REPLACEMENT Ondansetron HCl (Zofran) 4 mg IVP Q6H PRN PRN Reason: Nausea/Vomiting Pantoprazole Sodium (Protonix) 40 mg IVP 0900 REPLACED BY [facility] Last Admin: 11/11/17 09:33 Dose: 40 mg Potassium Chloride (K-Dur) 40 meq PO ASDIR PRN PRN Reason: FOR SERUM K+ 2.5 - 3.5 Potassium Chloride (Klor-Con) 40 meq PER TUBE ASDIR PRN PRN Reason: FOR SERUM K+ 2.5-3.5 Propofol (Diprivan) 1,000 mg IV INF PRN; Protocol PRN Reason: TO ACHIEVE GOAL RASS Stop: 12/09/17 02:19 Last Admin: 11/11/17 11:54 Dose: 1,000 mg Propofol (Diprivan Bolus) 20 mg IV Q5MIN PRN PRN Reason: BREAKTHROUGH AGITATION Stop: 12/09/17 02:19
[2017-11-11] MEDS: HumaLOG 300 UNITS/3 ML VIAL SC PRN ×3 (13:37→23:35)
[2017-11-11] MEDS: Lorazepam 2 MG/ML VIAL SLOW IVP SCH ×3 (13:48→21:23)
[2017-11-11] MEDS: Haloperidol Lactate 5 MG/ML VIAL IM SCH ×3 (14:56→21:22)
[2017-11-11] MEDS: fentaNYL Citrate/PF 2,000 MCG in Sodium Chloride 0.9% 60 ML IV SCH (15:21)
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
--- NOTE | 2017-11-11 16:20 | PRG ---
DATE OF SERVICE: 11/11/2017 SUBJECTIVE: Mr. Chau is very strong. When he was given a sedation holiday, he broke the bedrail with his foot today. OBJECTIVE: VITAL SIGNS: He is afebrile, blood pressure 172/79, respiratory rate is in the teens. LUNGS: Clear. HEART: Regular rhythm. S1 and S2 are normal. ABDOMEN: Soft and nontender. LABORATORY DATA: White count 13.3, hemoglobin 10.8, platelets 275,000. Sodium 137, potassium 4.3, chloride 108, bicarbonate 23, BUN 14, creatinine 0.82. Chest radiograph shows an increase in interstitial markings. His x-ray is improved. I recommend an echocardiogram. He also had bradycardia (sinus bradycardia) with vagal maneuvers and coughing earlier today. I will have Cardiology look on and review his echo, but I doubt he has anything that would require pacemaker intervention. Hopefully, we can place him on Haldol [id number] , Ativan and Precedex drip and then consider weaning and just extubation in the morning. He is strong enough, he should fly. He will need BiPAP at night because he does have a diagnosis of sleep apnea. He would not be compliant with CPAP or have any way to get CPAP once he gets out of here, but at least while he is in the hospital, he will be treated. It is still not clear to me what led to his intubation in the emergency room since he presented for evaluation of a chronic wound in his left lower extremity. It did not appear to be infected. Critical care time 35 min. WILLY
[2017-11-12] MEDS: Haloperidol Lactate 5 MG/ML VIAL IM SCH ×6 (01:19→20:41)
[2017-11-12] MEDS: Propofol 1,000 MG/100 ML VIAL IV PRN ×11 (01:19→22:48)
[2017-11-12] MEDS: Lorazepam 2 MG/ML VIAL SLOW IVP SCH ×6 (01:19→20:42)
[2017-11-12] MEDS: HumaLOG 300 UNITS/3 ML VIAL SC PRN ×2 (04:22→16:56)
[2017-11-12] MEDS: Piperacillin/Tazobactam 3.375 GM in Sodium Chloride 0.9% 100 ML IVPB SCH ×3 (05:04→16:43)
[2017-11-12] MEDS: fentaNYL Citrate/PF 2,000 MCG in Sodium Chloride 0.9% 60 ML IV SCH ×2 (05:09→19:25)
[2017-11-12 06:01] LABS: Anion Gap 12 mmol/L (10-20); BUN (Urea Nitrogen) 13 mg/dL (8.9-20.6); Calc. Creatinine Clearance 316 mL/min (70-130); Calcium 8.4 mg/dL (7.8-10.44); Carbon Dioxide 27 mmol/L (22-29); Chloride 107 mmol/L (98-107); Estimated GFR-MDRD Greater than 90; Glucose 185 mg/dL (70-105); Potassium 4.6 mmol/L (3.5-5.1); Sodium 141 mmol/L (136-145)
[2017-11-12 06:05] LABS: Band 6 % (5-11); Hemoglobin 10.8 g/dL (14.0-18.0); Lymphocytes 14 % (21-51); MDiff Complete? YES; Mean Corpuscular HGB CONC 32.1 g/dL (32.0-36.0); Mean Corpuscular Hemoglobin 29.2 pg (27.0-31.0); Mean Platelet Volume 6.3 fL (7.4-10.4); Monocytes 5 % (0-10); Neutrophil 74 % (42-75); Platelet Count 234 thou/uL (130-400); Red Blood Cell (RBC) Count 3.71 mill/uL (4.70-6.10); White Blood Cell (WBC) Count 10.9 thou/uL (4.8-10.8)
[2017-11-12 07:16] LABS: Actual Bicarbonate (HCO3a) 28.2 mEq/L (22-26); Base Excess (BEa) 1.1 mEq/L (0 (+/-) 2.5); CO2 Tension 58.1 mmHg (35.0-45.0); Hematocrit-ABG 31.5 % (42.0-52.0); Hemoglobin (Hb) 10.2 g/dL (14.0-18.0); O2 Tension (PaO2) 107.9 mmHg (80.0-100.0); pH, Arterial 7.31 (7.35-7.45)
[2017-11-12 07:17] LABS: ALV-art Gradient 104.675 (0-20); Calcium, Ionized 1.2 mmol/L (1.12-1.30); Puncture Site LR
[2017-11-12] MEDS: Pantoprazole 40 MG VIAL IVP SCH (09:11)
--- NOTE | 2017-11-12 09:32 | RAD ---
PORTABLE SUPINE CHEST: HISTORY: Dyspnea. CCU followup. FINDINGS/IMPRESSION: ET tube remains in place with tip above parth. The central line is unchanged. Mild cardiomegaly. Mild vascular congestion. No focal infiltrate. No significant interval change. POS: H
--- NOTE | 2017-11-12 13:11 | PDOC.PN ---
- Subjective Encounter Start Date: 11/12/17 Encounter Start Time: 13:10 Patient seen and examined for respiratory failure. No overnight events - Objective Resuscitation Status: Resuscitation Status FULL:Full Resuscitation MAR Reviewed: Yes Vital Signs & Weight: Vital Signs (12 hours) Temp Pulse Resp BP Pulse Ox 11/12/17 11:30 62 101/53 L 11/12/17 11:25 61 10 L 99 11/12/17 11:00 96.6 F L 11/12/17 10:00 96.1 F L 13 11/12/17 09:00 96.1 F L 11/12/17 08:00 95.7 F L 11/12/17 07:03 52 L 109/60 11/12/17 06:58 51 L 10 L 99 11/12/17 06:00 16 11/12/17 04:00 98.2 F 16 11/12/17 02:58 46 L 11 L 100 11/12/17 02:00 16 Weight Admit Weight 373 lb Weight 381 lb 6.395 oz Most Recent Monitor Data Heart Rate from ECG 58 NIBP 100/46 NIBP BP-Mean 68 Respiration from ECG 11 SpO2 100 I&O: 11/11/17 11/12/17 11/13/17 06:59 06:59 06:59 Intake Total 4180.15 1876.1 120 Output Total 2470 2145 475 Balance 1710.15 -268.9 -355 Result Diagrams: 11/12/17 05:33 11/12/17 05:33 Additional Labs: Accuchecks 11/12/17 11/11/17 11/11/17 04:21 23:03 18:28 POC Glucose 181 H 193 H 217 H Radiology Reviewed by me: Yes (chest xray) EKG Reviewed by me: Yes (nsr) Phys Exam - Physical Examination Constitutional: NAD intubated, sedated HEENT: PERRLA, moist MMs, sclera anicteric Neck: no nodes, no JVD, supple, full ROM Respiratory: no wheezing, no rales, no rhonchi Cardiovascular: RRR, no significant murmur, no rub Gastrointestinal: soft, no distention, positive bowel sounds obesity+ chronic skin changes with wound Lymphatic: no nodes Skin: no rash, normal turgor Dx/Plan (1) Acute encephalopathy Code(s): G93.40 - ENCEPHALOPATHY, UNSPECIFIED Status: Acute (2) Acute respiratory failure with hypoxia Code(s): J96.01 - ACUTE RESPIRATORY FAILURE WITH HYPOXIA Status: Acute (3) Hypotension Status: Acute (4) HLD (hyperlipidemia) Code(s): E78.5 - HYPERLIPIDEMIA, UNSPECIFIED Status: Chronic (5) Lymphedema of both lower extremities Code(s): I89.0 - LYMPHEDEMA, NOT ELSEWHERE CLASSIFIED Status: Chronic (6) Morbid obesity with BMI of 45.0-49.9, adult Code(s): E66.01 - MORBID (SEVERE) OBESITY DUE TO EXCESS CALORIES; Z68.42 - BODY MASS INDEX (BMI) 45.0-49.9, ADULT Status: Chronic (7) Tobacco abuse Code(s): Z72.0 - TOBACCO USE Status: Chronic (8) Wound of left lower extremity Code(s): S81.802A - UNSPECIFIED OPEN WOUND, LEFT LOWER LEG, INITIAL ENCOUNTER Status: Chronic (9) DAVID (obstructive sleep apnea) Code(s): G47.33 - OBSTRUCTIVE SLEEP APNEA (ADULT) (PEDIATRIC) Status: Suspected (10) Acute kidney failure Status: Resolved - Plan cont current plan of care, continue antibiotics, respiratory therapy * precedex started * vent as per pulmonary * medication reviewed as below * symptomatic treatment. * continue zosyn Review of Systems - Review of Systems Other: unable to review due to intubated status - Medications/Allergies Allergies/Adverse Reactions: Allergies Allergy/AdvReac Type Severity Reaction Status Date / Time vancomycin Allergy Verified 11/09/17 05:23 Medications: Current Medications Acetaminophen (Tylenol) 650 mg [place] Q4H PRN PRN Reason: Headache/Fever or Pain Acetaminophen (Tylenol) 650 mg PER TUBE Q4H PRN PRN Reason: Headache/Fever or Pain Albuterol/Ipratropium (Duoneb) 3 ml NEB [id number] RADHA Last Admin: 11/12/17 11:25 Dose: 3 ml Bisacodyl (Dulcolax) 10 mg [place] Q24H PRN PRN Reason: Constipation Dextrose/Water (Dextrose 50%) 25 gm SLOW IVP PRN PRN PRN Reason: Hypoglycemia Enoxaparin Sodium (Lovenox) 40 mg SC 0900 [facility] Last Admin: 11/12/17 13:12 Dose: 40 mg Glucagon (Glucagon) 1 mg IM PRN PRN PRN Reason: Hypoglycemia Haloperidol Lactate (Haldol) 10 mg IM Q4H [facility] Last Admin: 11/12/17 09:44 Dose: 10 mg Fentanyl Citrate 2,000 mcg/ (Sodium Chloride) 100 mls @ 0 mls/hr IV INF RADHA PRN Reason: As Directed Last Admin: 11/12/17 05:09 Dose: 100 mls Norepinephrine Bitartrate 8 mg (/ Sodium Chloride) 258 mls @ 0 mls/hr IVPB PRN PRN; Protocol; Titrate PRN Reason: To maintain MAP > 65 Last Admin: 11/09/17 12:56 Dose: 258 mls Fentanyl Citrate (Fentanyl Bolus) 250 mls @ 0 mls/hr IVPB PRN PRN; As Directed PRN Reason: Breakthrough pain/agitation Stop: 12/09/17 02:19 Potassium Chloride 40 meq/ (Sodium Chloride) 270 mls @ 135 mls/hr IVPB ASDIR PRN PRN Reason: FOR SERUM K+ 2.5 - 3.5 Potassium Chloride 40 meq/ (Device) 100 mls @ 50 mls/hr IVPB ASDIR PRN PRN Reason: FOR SERUM K+ 2.5 - 3.5 Magnesium Sulfate 1 gm/ Sodium (Chloride) 102 mls @ 102 mls/hr IV PRN PRN PRN Reason: MAG LEVEL 1.4 - 2.0 Magnesium Sulfate 2 gm/ Device 100 mls @ 100 mls/hr IVPB ASDIR PRN PRN Reason: MAGNESIUM < 1.4 Potassium Phosphate 9 mmol/ (Sodium Chloride) 103 mls @ 25.75 mls/hr IVPB ASDIR PRN PRN Reason: Phosphate 1.0-1.8 Potassium Phosphate 12 mmol/ (Sodium Chloride) 254 mls @ 63.5 mls/hr IV ASDIR PRN PRN Reason: Serum phosphate 0.5-0.9 Potassium Phosphate 15 mmol/ (Sodium Chloride) 255 mls @ 63.75 mls/hr IV ASDIR PRN PRN Reason: Serum Phos < 0.5 Piperacillin Sod/Tazobactam (Sod 3.375 gm/ Sodium Chloride) 100 mls @ 200 mls/ hr IVPB Q6HR [facility] Last Admin: 11/12/17 11:45 Dose: 100 mls Dextrose/Water (D5w) 1,000 mls @ 0 mls/hr IV .Q0M PRN; As Directed PRN Reason: Hypoglycemia Dexmedetomidine HCl 200 mcg/ (Sodium Chloride) 50 mls @ 0 mls/hr IVPB INF RADHA; Per Protocol PRN Reason: Protocol Insulin Human Lispro (Humalog) 0 units SC .AGGRESSIVE SLIDING PRN; Protocol PRN Reason: AGGRESSIVE SLIDING SCALE Last Admin: 11/12/17 04:22 Dose: 3 unit Lorazepam (Ativan) 2 mg SLOW IVP Q1H PRN PRN Reason: Breakthrough agitation Stop: 12/09/17 02:19 Lorazepam (Ativan) 1 mg SLOW IVP Q4H [facility] Last Admin: 11/12/17 09:45 Dose: 1 mg Magnesium Oxide (Magnesium Oxide) 400 mg PO BIDPRN PRN PRN Reason: FOR SERUM MAG 1.4 - 2.0 Magnesium Oxide (Magnesium Oxide) 800 mg PO PRN PRN PRN Reason: FOR SERUM MAG < 1.4 Methylprednisolone Sodium Succinate (Solu-Medrol) 40 mg IVP DAILY [facility] Last Admin: 11/12/17 09:11 Dose: 40 mg Miscellaneous Medication (Phos-Nak) 1 pkt PO TIDPRN PRN PRN Reason: FOR PHOS LEVEL 1.0 - 1.8 Miscellaneous Medication (Phos-Nak) 2 pkt PO TIDPRN PRN PRN Reason: FOR PHOS LEVEL 0.5 - 1.0 Morphine Sulfate (Morphine) 2 mg SLOW IVP Q1H PRN PRN Reason: breakthrough pain/agitation Stop: 12/09/17 02:19 Discontinue Previous Narcotic Pain Medications And Benzodiazepines 1 each FS .ONE [facility] Stop: 12/09/17 02:19 Ccu Electrolyte (Replacement Protocol) 0 each FS PRN PRN PRN Reason: FOR ELECTROLYTE REPLACEMENT Ondansetron HCl (Zofran) 4 mg IVP Q6H PRN PRN Reason: Nausea/Vomiting Pantoprazole Sodium (Protonix) 40 mg IVP 0900 [facility] Last Admin: 11/12/17 09:11 Dose: 40 mg Potassium Chloride (K-Dur) 40 meq PO ASDIR PRN PRN Reason: FOR SERUM K+ 2.5 - 3.5 Potassium Chloride (Klor-Con) 40 meq PER TUBE ASDIR PRN PRN Reason: FOR SERUM K+ 2.5-3.5 Propofol (Diprivan) 1,000 mg IV INF PRN; Protocol PRN Reason: TO ACHIEVE GOAL RASS Stop: 12/09/17 02:19 Last Admin: 11/12/17 11:45 Dose: 1,000 mg Propofol (Diprivan Bolus) 20 mg IV Q5MIN PRN PRN Reason: BREAKTHROUGH AGITATION Stop: 12/09/17 02:19
[2017-11-12] MEDS: Enoxaparin Sodium 40 MG/0.4 ML SYRINGE SC SCH (13:12)
--- NOTE | 2017-11-12 15:39 | PDOC.CTH ---
Cardiology Progress Note - Subjective No changes overnight. One episode of pause at 3am. - ROS not able to obtain ROS - Objective Vital Signs Temp Pulse Resp BP Pulse Ox 11/12/17 15:17 64 125/73 11/12/17 15:15 63 8 L 90 L 11/12/17 14:00 97.8 F 11/12/17 12:00 97.4 F L 11/12/17 11:30 62 101/53 L 11/12/17 11:25 61 10 L 99 11/12/17 11:00 96.6 F L 11/12/17 10:00 96.1 F L 13 11/12/17 09:00 96.1 F L 11/12/17 08:00 95.7 F L 11/12/17 07:03 52 L 109/60 11/12/17 06:58 51 L 10 L 99 11/12/17 06:00 16 11/12/17 04:00 98.2 F 16 Admit Weight 373 lb Weight 381 lb 6.395 oz 11/11/17 11/12/17 11/13/17 06:59 06:59 06:59 Intake Total 4180.15 1876.1 120 Output Total 2470 2145 750 Balance 1710.15 -268.9 -630 - Physical Examination General/Neuro: NAD Neck: carotid US brisk, no JVD present Lungs: CTA, unlabored respirations Heart: PMI normal, RRR Abdomen: other: (obeses) Extremities: other: (severe chronic skin changes noted to LE bilaterally) - Labs Result Diagrams: 11/12/17 05:33 11/12/17 05:33 Troponin/CKMB CK-MB (CK-2) 0.9 ng/mL (0-6.6) 11/08/17 17:45 Troponin I Less than 0.010 ng/mL (< 0.028) 11/08/17 17:45 - Assessment/Plan 1. Heart block 2. Respiratory failure 3. Severe bilateral skin changes consistent with chronic stasis dermatitis 4. Morbid obesity At this point would recommend close observation. No current intervention. Pacer ads in place. Hopefully, once his underlying condition improves, so to will his rythm. If it continues, would recommend EP consultation. Would be a setup for infection though if pacer placed. Recent echo with normal EF. Given pts history of non-compliance and terrible social situation, would not be a great candidate moving forward. Discussed with Dr. Cabrales. Please reconsult if changes arise.
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
[2017-11-13] MEDS ORDERED: hydrALAZINE 20 MG/ML VIAL SLOW IVP SCH (00:30)
[2017-11-13] MEDS: Piperacillin/Tazobactam 3.375 GM in Sodium Chloride 0.9% 100 ML IVPB SCH ×5 (00:38→23:38)
[2017-11-13] MEDS: Lorazepam 2 MG/ML VIAL SLOW IVP SCH ×6 (00:39→21:05)
[2017-11-13] MEDS: Haloperidol Lactate 5 MG/ML VIAL IM SCH ×6 (00:39→21:05)
[2017-11-13] MEDS: Propofol 1,000 MG/100 ML VIAL IV PRN ×9 (01:45→22:33)
--- NOTE | 2017-11-13 03:18 | PDOC.EVN ---
Event Note - Event Note Event Note: code wilfredo called for asystole reviewing telemetry strips it appears patient was bradycardic immediately before asystole was registered on telemetry accompanying drop in SpO2 rec'd less than 1 round of CPR, no meds, with resumption of pulses, O2 sat unclear etiology - appears had previous episodes of bradycardia but preserved pulses earlier in hospitalization examination post code: intubated, sedated, NGT draining maroon fluid, Anderson draining cloudy urine S1, S2, pulses 2+ b/l UE limited ant exam, but coarse ventilator sounds throughout b/l lung valencia large abd, not distended +BS chronic vascular changes to b/l LE, no change from prev physical examination descriptions plan: re check EKG BMP, CBC, Mg, troponin ECHO has already been done earlier during stay continue with ventilator support repeat CXR (portable) as well, post CPR suspected heart block - pacer pads are currently in place, pt is HR 73 poor candidate for any device incl PPM prior episodes of vasovagal - this occurred with patient completely sedated is still sedated post CPR patient with noted significant psychiatric hx and accompanying medical noncompliance resulting in multiple progressive co-morbidities (tob abuse, COPD , DAVID, obesity, DM2 uncontrolled) unfortunately very guarded correction prognosis with social issues a significant barrier to improvement greater than 30 min critical care time spent, d/w bedside nsg
[2017-11-13 03:31] LABS: ALT (SGPT) 36 U/L (8-55); AST (SGOT) 35 U/L (5-34); Albumin 3.2 g/dL (3.5-5.0); Alkaline Phosphatase 80 U/L (40-150); Anion Gap 12 mmol/L (10-20); BUN (Urea Nitrogen) 14 mg/dL (8.9-20.6); Band 4 % (5-11); Bilirubin, Total 0.4 mg/dL (0.2-1.2); Calc. Creatinine Clearance 277 mL/min (70-130); Carbon Dioxide 26 mmol/L (22-29); Chloride 109 mmol/L (98-107); Estimated GFR-MDRD Greater than 90; Globulin 3.9 g/dL (2.4-3.5); Glucose 187 mg/dL (70-105); Hemoglobin 12.1 g/dL (14.0-18.0); Lymphocytes 25 % (21-51); MDiff Complete? YES; Magnesium 2.3 mg/dL (1.6-2.6); Mean Corpuscular Hemoglobin 29.8 pg (27.0-31.0); Mean Corpuscular Volume 90.4 fl (80.0-94.0); Mean Platelet Volume 6.6 fL (7.4-10.4); Monocytes 5 % (0-10); Neutrophil 66 % (42-75); PLT Morphology Comment Appears Adequate; Platelet Count 234 thou/uL (130-400); Potassium 4.6 mmol/L (3.5-5.1); Protein, Total 7.1 g/dL (6.0-8.3); RBC Distribution Width 15.1 % (11.5-14.5); RBC Morphology Normal; Red Blood Cell (RBC) Count 4.05 mill/uL (4.70-6.10); Sodium 142 mmol/L (136-145); White Blood Cell (WBC) Count 11.5 thou/uL (4.8-10.8)
[2017-11-13 03:35] LABS: Troponin I 0.016 ng/mL (< 0.028)
[2017-11-13 07:26] LABS: Actual Bicarbonate (HCO3a) 28.1 mEq/L (22-26); Base Excess (BEa) 2.4 mEq/L (0 (+/-) 2.5); O2 Tension (PaO2) 70.4 mmHg (80.0-100.0); pH, Arterial 7.38 (7.35-7.45)
[2017-11-13 07:27] LABS: Calcium, Ionized 1.3 mmol/L (1.12-1.30); Hematocrit-ABG 35.8 % (42.0-52.0); Hemoglobin (Hb) 11.7 g/dL (14.0-18.0); Puncture Site LRA
[2017-11-13] MEDS: Enoxaparin Sodium 40 MG/0.4 ML SYRINGE SC SCH (08:41)
[2017-11-13] MEDS: Pantoprazole 40 MG VIAL IVP SCH (08:41)
--- NOTE | 2017-11-13 09:22 | RAD ---
SINGLE VIEW OF THE CHEST: Comparison: 11-12-17 History: Ventilated patient with respiratory failure. FINDINGS: Single view of the chest shows an enlarged but stable cardiomediastinal silhouette. The lines and tub es are unchanged in position. There is airspace opacity projecting over the right upper lobe and in t he left perihilar region. These may represent multifocal infiltrates. IMPRESSION: Stable exam. POS: DENISE
[2017-11-13] MEDS: HumaLOG 300 UNITS/3 ML VIAL SC PRN ×2 (09:44→15:39)
--- NOTE | 2017-11-13 11:24 | PDOC.PN ---
- Subjective Encounter Start Date: 11/13/17 Encounter Start Time: 10:00 -: old records requested/rev last night pt's heart rate was in 30 , then he became asystole, required transient CPR ( less than 3 minutes I was told), then rhythm and pulse retrieved , this morning pt's mother and sister bedside, updated condition bedside, currently on vent pt gets frequent variable length pauses Patient seen and examined for respi failure. - Objective Resuscitation Status: Resuscitation Status FULL:Full Resuscitation MAR Reviewed: Yes Vital Signs & Weight: Vital Signs (12 hours) Temp Pulse Resp BP Pulse Ox 11/13/17 10:43 63 161/95 H 11/13/17 10:42 65 15 92 L 11/13/17 09:59 15 11/13/17 07:36 98.0 F 62 20 93 L 11/13/17 06:27 62 152/86 H 11/13/17 06:25 64 22 H 93 L 11/13/17 06:00 19 11/13/17 04:00 98.2 F 19 11/13/17 02:30 65 18 96 11/13/17 02:00 21 H 11/13/17 00:39 63 11/13/17 00:00 16 Weight Admit Weight 373 lb Weight 380 lb 1.6 oz Most Recent Monitor Data Heart Rate from ECG 71 NIBP 162/91 NIBP BP-Mean 112 Respiration from ECG 18 SpO2 93 I&O: 11/12/17 11/13/17 11/14/17 06:59 06:59 06:59 Intake Total 1876.1 1870.2 Output Total 2145 3355 1025 Balance -268.9 -1484.8 -1025 Result Diagrams: 11/13/17 02:42 11/13/17 02:42 Additional Labs: Accuchecks 11/13/17 11/12/17 11/12/17 09:44 20:52 16:58 POC Glucose 193 H 203 H 218 H Radiology Reviewed by me: Yes (chest xray- no change) EKG Reviewed by me: Yes (nsr) Phys Exam - Physical Examination Constitutional: NAD on vent, NG tube with LIS HEENT: PERRLA, sclera anicteric Neck: no nodes, supple Respiratory: no wheezing, no rales, no rhonchi Cardiovascular: RRR, no significant murmur, no rub Gastrointestinal: soft, no distention, positive bowel sounds morbid obesity limiting exam chronic venous stasis dermatitis with wound with dressing on left unable to assess Lymphatic: no nodes Deviation from normal: unable to assess as intubated Dx/Plan (1) Acute encephalopathy Code(s): G93.40 - ENCEPHALOPATHY, UNSPECIFIED Status: Acute (2) Acute respiratory failure with hypoxia Code(s): J96.01 - ACUTE RESPIRATORY FAILURE WITH HYPOXIA Status: Acute (3) Hypotension Status: Resolved (4) HLD (hyperlipidemia) Code(s): E78.5 - HYPERLIPIDEMIA, UNSPECIFIED Status: Chronic (5) Lymphedema of both lower extremities Code(s): I89.0 - LYMPHEDEMA, NOT ELSEWHERE CLASSIFIED Status: Chronic (6) Morbid obesity with BMI of 45.0-49.9, adult Code(s): E66.01 - MORBID (SEVERE) OBESITY DUE TO EXCESS CALORIES; Z68.42 - BODY MASS INDEX (BMI) 45.0-49.9, ADULT Status: Chronic (7) Tobacco abuse Code(s): Z72.0 - TOBACCO USE Status: Chronic (8) Wound of left lower extremity Code(s): S81.802A - UNSPECIFIED OPEN WOUND, LEFT LOWER LEG, INITIAL ENCOUNTER Status: Chronic (9) DAVID (obstructive sleep apnea) Code(s): G47.33 - OBSTRUCTIVE SLEEP APNEA (ADULT) (PEDIATRIC) Status: Chronic (10) Acute kidney failure Status: Resolved (11) Sinus pause Code(s): I45.5 - OTHER SPECIFIED HEART BLOCK Status: Acute (12) Chronic venous stasis dermatitis of both lower extremities Code(s): I87.2 - VENOUS INSUFFICIENCY (CHRONIC) (PERIPHERAL) Status: Chronic (13) Homeless Code(s): Z59.0 - HOMELESSNESS Status: Chronic (14) Psychiatric disorder Code(s): F99 - MENTAL DISORDER, NOT OTHERWISE SPECIFIED Status: Chronic - Plan cont current plan of care, plan discussed w/ family, continue antibiotics, case management social worker, respiratory therapy * suspecting vasovagal vs sinus node dysfunction, cardiology following, ? EP needs to be consulted and ?? need of any pacemaker, will defer to cardiology * pulmonary managing ventilator * today I updated condition to family bedside * prognosis is guarded * continue current treatment as below * symptomatic treatment. Review of Systems - Review of Systems Other: unable to review due to intubated status - Medications/Allergies Allergies/Adverse Reactions: Allergies Allergy/AdvReac Type Severity Reaction Status Date / Time vancomycin Allergy Verified 11/09/17 05:23 Medications: Current Medications Acetaminophen (Tylenol) 650 mg RI Q4H PRN PRN Reason: Headache/Fever or Pain Acetaminophen (Tylenol) 650 mg PER TUBE Q4H PRN PRN Reason: Headache/Fever or Pain Albuterol/Ipratropium (Duoneb) 3 ml NEB [id number] [facility] Last Admin: 11/13/17 10:42 Dose: 3 ml Bisacodyl (Dulcolax) 10 mg RI Q24H PRN PRN Reason: Constipation Dextrose/Water (Dextrose 50%) 25 gm SLOW IVP PRN PRN PRN Reason: Hypoglycemia Enoxaparin Sodium (Lovenox) 40 mg SC 0900 [facility] Last Admin: 11/13/17 08:41 Dose: 40 mg Glucagon (Glucagon) 1 mg IM PRN PRN PRN Reason: Hypoglycemia Haloperidol Lactate (Haldol) 10 mg IM Q4H [facility] Last Admin: 11/13/17 08:42 Dose: 10 mg Fentanyl Citrate 2,000 mcg/ (Sodium Chloride) 100 mls @ 0 mls/hr IV INF RADHA PRN Reason: As Directed Last Admin: 11/12/17 19:25 Dose: 100 mls Norepinephrine Bitartrate 8 mg (/ Sodium Chloride) 258 mls @ 0 mls/hr IVPB PRN PRN; Protocol; Titrate PRN Reason: To maintain MAP > 65 Last Admin: 11/09/17 12:56 Dose: 258 mls Fentanyl Citrate (Fentanyl Bolus) 250 mls @ 0 mls/hr IVPB PRN PRN; As Directed PRN Reason: Breakthrough pain/agitation Stop: 12/09/17 02:19 Potassium Chloride 40 meq/ (Sodium Chloride) 270 mls @ 135 mls/hr IVPB ASDIR PRN PRN Reason: FOR SERUM K+ 2.5 - 3.5 Potassium Chloride 40 meq/ (Device) 100 mls @ 50 mls/hr IVPB ASDIR PRN PRN Reason: FOR SERUM K+ 2.5 - 3.5 Magnesium Sulfate 1 gm/ Sodium (Chloride) 102 mls @ 102 mls/hr IV PRN PRN PRN Reason: MAG LEVEL 1.4 - 2.0 Magnesium Sulfate 2 gm/ Device 100 mls @ 100 mls/hr IVPB ASDIR PRN PRN Reason: MAGNESIUM < 1.4 Potassium Phosphate 9 mmol/ (Sodium Chloride) 103 mls @ 25.75 mls/hr IVPB ASDIR PRN PRN Reason: Phosphate 1.0-1.8 Potassium Phosphate 12 mmol/ (Sodium Chloride) 254 mls @ 63.5 mls/hr IV ASDIR PRN PRN Reason: Serum phosphate 0.5-0.9 Potassium Phosphate 15 mmol/ (Sodium Chloride) 255 mls @ 63.75 mls/hr IV ASDIR PRN PRN Reason: Serum Phos < 0.5 Piperacillin Sod/Tazobactam (Sod 3.375 gm/ Sodium Chloride) 100 mls @ 200 mls/ hr IVPB Q6HR [facility] Last Admin: 11/13/17 11:20 Dose: 100 mls Dextrose/Water (D5w) 1,000 mls @ 0 mls/hr IV .Q0M PRN; As Directed PRN Reason: Hypoglycemia Dexmedetomidine HCl 400 mcg/ (Sodium Chloride) 100 mls @ 0 mls/hr IVPB INF RADHA ; Per Protocol PRN Reason: Protocol Last Admin: 11/13/17 10:33 Dose: 100 mls Insulin Human Lispro (Humalog) 0 units SC .AGGRESSIVE SLIDING PRN; Protocol PRN Reason: AGGRESSIVE SLIDING SCALE Last Admin: 11/13/17 09:44 Dose: 3 unit Lorazepam (Ativan) 2 mg SLOW IVP Q1H PRN PRN Reason: Breakthrough agitation Stop: 12/09/17 02:19 Lorazepam (Ativan) 1 mg SLOW IVP Q4H [facility] Last Admin: 11/13/17 08:41 Dose: 1 mg Magnesium Oxide (Magnesium Oxide) 400 mg PO BIDPRN PRN PRN Reason: FOR SERUM MAG 1.4 - 2.0 Magnesium Oxide (Magnesium Oxide) 800 mg PO PRN PRN PRN Reason: FOR SERUM MAG < 1.4 Methylprednisolone Sodium Succinate (Solu-Medrol) 40 mg IVP DAILY [facility] Last Admin: 11/13/17 08:41 Dose: 40 mg Miscellaneous Medication (Phos-Nak) 1 pkt PO TIDPRN PRN PRN Reason: FOR PHOS LEVEL 1.0 - 1.8 Miscellaneous Medication (Phos-Nak) 2 pkt PO TIDPRN PRN PRN Reason: FOR PHOS LEVEL 0.5 - 1.0 Morphine Sulfate (Morphine) 2 mg SLOW IVP Q1H PRN PRN Reason: breakthrough pain/agitation Stop: 12/09/17 02:19 Discontinue Previous Narcotic Pain Medications And Benzodiazepines 1 each FS .ONE RADHA Stop: 12/09/17 02:19 Ccu Electrolyte (Replacement Protocol) 0 each FS PRN PRN PRN Reason: FOR ELECTROLYTE REPLACEMENT Ondansetron HCl (Zofran) 4 mg IVP Q6H PRN PRN Reason: Nausea/Vomiting Pantoprazole Sodium (Protonix) 40 mg IVP 0900 [facility] Last Admin: 11/13/17 08:41 Dose: 40 mg Potassium Chloride (K-Dur) 40 meq PO ASDIR PRN PRN Reason: FOR SERUM K+ 2.5 - 3.5 Potassium Chloride (Klor-Con) 40 meq PER TUBE ASDIR PRN PRN Reason: FOR SERUM K+ 2.5-3.5 Propofol (Diprivan) 1,000 mg IV INF PRN; Protocol PRN Reason: TO ACHIEVE GOAL RASS Stop: 12/09/17 02:19 Last Admin: 11/13/17 11:04 Dose: 1,000 mg Propofol (Diprivan Bolus) 20 mg IV Q5MIN PRN PRN Reason: BREAKTHROUGH AGITATION Stop: 12/09/17 02:19
[2017-11-13] MEDS ORDERED: DOBUTamine 500 mg/250 ml 500 MG in Premix Bag 1 BAG IVPB PRN (14:29)
[2017-11-13] MEDS ORDERED: Atropine Sulfate 1 mg/10 ml Syringe IVP PRN (14:30)
--- NOTE | 2017-11-13 16:23 | ULT ---
BILATERAL LOWER EXTREMITY VENOUS ULTRASOUND: 11/13/17 HISTORY: Bilateral lower extremity edema. TECHNIQUE: Multiplanar hansen scale and color doppler images were obtained in a bilateral lower extremity venous u ltrasound. Spectral analysis of the doppler waveforms were performed. FINDINGS: The bilateral common femoral veins, profunda femoral veins, superficial femoral veins, and popliteal veins are normal in appearance without visible thrombus. These vessels demonstrate normal compression , flow and augmentation. The posterior tibial veins and greater saphenous veins are also patent. IMPRESSION: No evidence of DVT. POS: MAKENZIE
[2017-11-13] MEDS: hydrALAZINE 20 MG/ML VIAL SLOW IVP PRN (17:32)
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
[2017-11-13] MEDS: fentaNYL Citrate/PF 2,000 MCG in Sodium Chloride 0.9% 60 ML IV SCH (22:05)
[2017-11-14] MEDS: Haloperidol Lactate 5 MG/ML VIAL IM SCH ×6 (00:11→21:58)
[2017-11-14] MEDS: Lorazepam 2 MG/ML VIAL SLOW IVP SCH ×6 (00:11→21:58)
[2017-11-14] MEDS: Propofol 1,000 MG/100 ML VIAL IV PRN ×10 (03:18→23:59)
[2017-11-14 04:35] LABS: Anion Gap 12 mmol/L (10-20); BUN (Urea Nitrogen) 14 mg/dL (8.9-20.6); Calc. Creatinine Clearance 331 mL/min (70-130); Calcium 9.1 mg/dL (7.8-10.44); Carbon Dioxide 30 mmol/L (22-29); Chloride 104 mmol/L (98-107); Estimated GFR-MDRD Greater than 90; Glucose 151 mg/dL (70-105); Potassium 3.6 mmol/L (3.5-5.1); Sodium 142 mmol/L (136-145)
[2017-11-14] MEDS: Piperacillin/Tazobactam 3.375 GM in Sodium Chloride 0.9% 100 ML IVPB SCH ×4 (05:12→23:59)
[2017-11-14 05:36] LABS: Band 2 % (5-11); Hemoglobin 11.5 g/dL (14.0-18.0); Lymphocytes 21 % (21-51); MDiff Complete? YES; Mean Corpuscular HGB CONC 32.9 g/dL (32.0-36.0); Mean Corpuscular Hemoglobin 29.3 pg (27.0-31.0); Mean Corpuscular Volume 88.8 fl (80.0-94.0); Mean Platelet Volume 6.4 fL (7.4-10.4); Metamyelocyte 1 % (0-0); Monocytes 3 % (0-10); Neutrophil 73 % (42-75); PLT Morphology Comment Appears Adequate; Platelet Count 238 thou/uL (130-400); RBC Distribution Width 14.8 % (11.5-14.5); Red Blood Cell (RBC) Count 3.93 mill/uL (4.70-6.10); White Blood Cell (WBC) Count 7.2 thou/uL (4.8-10.8)
[2017-11-14] MEDS: Pantoprazole 40 MG VIAL IVP SCH (08:39)
[2017-11-14] MEDS: Enoxaparin Sodium 40 MG/0.4 ML SYRINGE SC SCH (08:39)
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
[2017-11-14] MEDS: HumaLOG 300 UNITS/3 ML VIAL SC PRN (09:58)
[2017-11-14] MEDS ORDERED: Iopamidol 370 76% 50 ML VIAL FS ONE (10:07)
--- NOTE | 2017-11-14 11:17 | PDOC.PN ---
- Subjective Encounter Start Date: 11/14/17 Encounter Start Time: 09:30 Patient seen and examined for respi failure, he had prolonged pause last night, - Objective Resuscitation Status: Resuscitation Status FULL:Full Resuscitation MAR Reviewed: Yes Vital Signs & Weight: Vital Signs (12 hours) Temp Pulse Resp BP Pulse Ox 11/14/17 10:30 86 136/71 11/14/17 09:54 21 H 11/14/17 09:05 94 123/56 L 11/14/17 07:46 60 159/82 H 11/14/17 07:36 97.7 F 58 L 20 93 L 11/14/17 06:00 21 H 11/14/17 04:00 97.4 F L 24 H 11/14/17 02:31 60 13 92 L 11/14/17 02:00 19 11/14/17 00:00 22 H Weight Admit Weight 373 lb Weight 372 lb 9.299 oz Most Recent Monitor Data Heart Rate from ECG 86 NIBP 145/79 NIBP BP-Mean 101 Respiration from ECG 16 SpO2 88 I&O: 11/13/17 11/14/17 11/15/17 06:59 06:59 06:59 Intake Total 1870.2 1705.3 Output Total 3355 4310 615 Balance -1484.8 -2604.7 -615 Result Diagrams: 11/14/17 04:12 11/14/17 04:12 Additional Labs: Accuchecks 11/14/17 11/14/17 11/13/17 09:55 03:57 22:38 POC Glucose 183 H 142 H 164 H 11/13/17 15:40 POC Glucose 248 H Radiology Reviewed by me: Yes (chest xray-stable) EKG Reviewed by me: Yes (pause, nsr) Phys Exam - Physical Examination Constitutional: NAD intubated HEENT: PERRLA, sclera anicteric Neck: no JVD, supple Respiratory: no wheezing, no rales, no rhonchi Cardiovascular: RRR, no significant murmur, no rub Gastrointestinal: soft, no distention, positive bowel sounds morbid obesity+ chronic venous stasis dermatitis with wound on left leg unable to assess Lymphatic: no nodes Deviation from normal: unable to assess Dx/Plan (1) Acute encephalopathy Code(s): G93.40 - ENCEPHALOPATHY, UNSPECIFIED Status: Acute (2) Acute respiratory failure with hypoxia Code(s): J96.01 - ACUTE RESPIRATORY FAILURE WITH HYPOXIA Status: Acute (3) Hypotension Status: Resolved (4) HLD (hyperlipidemia) Code(s): E78.5 - HYPERLIPIDEMIA, UNSPECIFIED Status: Chronic (5) Lymphedema of both lower extremities Code(s): I89.0 - LYMPHEDEMA, NOT ELSEWHERE CLASSIFIED Status: Chronic (6) Morbid obesity with BMI of 45.0-49.9, adult Code(s): E66.01 - MORBID (SEVERE) OBESITY DUE TO EXCESS CALORIES; Z68.42 - BODY MASS INDEX (BMI) 45.0-49.9, ADULT Status: Chronic (7) Tobacco abuse Code(s): Z72.0 - TOBACCO USE Status: Chronic (8) Wound of left lower extremity Code(s): S81.802A - UNSPECIFIED OPEN WOUND, LEFT LOWER LEG, INITIAL ENCOUNTER Status: Chronic (9) DAVDI (obstructive sleep apnea) Code(s): G47.33 - OBSTRUCTIVE SLEEP APNEA (ADULT) (PEDIATRIC) Status: Chronic (10) Acute kidney failure Status: Resolved (11) Sinus pause Code(s): I45.5 - OTHER SPECIFIED HEART BLOCK Status: Acute (12) Chronic venous stasis dermatitis of both lower extremities Code(s): I87.2 - VENOUS INSUFFICIENCY (CHRONIC) (PERIPHERAL) Status: Chronic (13) Homeless Code(s): Z59.0 - HOMELESSNESS Status: Chronic (14) Psychiatric disorder Code(s): F99 - MENTAL DISORDER, NOT OTHERWISE SPECIFIED Status: Chronic - Plan cont current plan of care, continue antibiotics * EP evaluated pt, pacemaker will defer to them * continue empiric zosyn, clinically pt does not have any bloodstream infection , his wound is colonized * medication reviewed as below * symptomatic treatment. * vent as per pulmonary Review of Systems - Review of Systems Other: unable to review due to intubated status - Medications/Allergies Allergies/Adverse Reactions: Allergies Allergy/AdvReac Type Severity Reaction Status Date / Time vancomycin Allergy Verified 11/09/17 05:23 Medications: Current Medications Acetaminophen (Tylenol) 650 mg CA Q4H PRN PRN Reason: Headache/Fever or Pain Acetaminophen (Tylenol) 650 mg PER TUBE Q4H PRN PRN Reason: Headache/Fever or Pain Albuterol/Ipratropium (Duoneb) 3 ml NEB [id number] [facility] Last Admin: 11/14/17 10:30 Dose: 3 ml Atropine Sulfate (Atropine) 1 mg IVP Q4H PRN PRN Reason: BRADYCARDIA < 30 Last Admin: 11/13/17 23:44 Dose: 1 mg Bisacodyl (Dulcolax) 10 mg CA Q24H PRN PRN Reason: Constipation Dextrose/Water (Dextrose 50%) 25 gm SLOW IVP PRN PRN PRN Reason: Hypoglycemia Enoxaparin Sodium (Lovenox) 40 mg SC 0900 [facility] Last Admin: 11/14/17 08:39 Dose: 40 mg Glucagon (Glucagon) 1 mg IM PRN PRN PRN Reason: Hypoglycemia Haloperidol Lactate (Haldol) 10 mg IM Q4H [facility] Last Admin: 11/14/17 08:41 Dose: 10 mg Hydralazine HCl (Apresoline) 10 mg SLOW IVP Q4H PRN PRN Reason: FOR SBP >160 Last Admin: 11/13/17 17:32 Dose: 10 mg Fentanyl Citrate 2,000 mcg/ (Sodium Chloride) 100 mls @ 0 mls/hr IV INF RADHA PRN Reason: As Directed Last Admin: 11/13/17 22:05 Dose: 100 mls Potassium Chloride 40 meq/ (Sodium Chloride) 270 mls @ 135 mls/hr IVPB ASDIR PRN PRN Reason: FOR SERUM K+ 2.5 - 3.5 Potassium Chloride 40 meq/ (Device) 100 mls @ 50 mls/hr IVPB ASDIR PRN PRN Reason: FOR SERUM K+ 2.5 - 3.5 Magnesium Sulfate 1 gm/ Sodium (Chloride) 102 mls @ 102 mls/hr IV PRN PRN PRN Reason: MAG LEVEL 1.4 - 2.0 Magnesium Sulfate 2 gm/ Device 100 mls @ 100 mls/hr IVPB ASDIR PRN PRN Reason: MAGNESIUM < 1.4 Potassium Phosphate 9 mmol/ (Sodium Chloride) 103 mls @ 25.75 mls/hr IVPB ASDIR PRN PRN Reason: Phosphate 1.0-1.8 Potassium Phosphate 12 mmol/ (Sodium Chloride) 254 mls @ 63.5 mls/hr IV ASDIR PRN PRN Reason: Serum phosphate 0.5-0.9 Potassium Phosphate 15 mmol/ (Sodium Chloride) 255 mls @ 63.75 mls/hr IV ASDIR PRN PRN Reason: Serum Phos < 0.5 Piperacillin Sod/Tazobactam (Sod 3.375 gm/ Sodium Chloride) 100 mls @ 200 mls/ hr IVPB Q6HR [facility] Last Admin: 11/14/17 05:12 Dose: 100 mls Dextrose/Water (D5w) 1,000 mls @ 0 mls/hr IV .Q0M PRN; As Directed PRN Reason: Hypoglycemia Dobutamine HCl/Dextrose 500 mg (/ Device) 250 mls @ 25.86 mls/hr IVPB INF PRN; Protocol; 5 MCG/KG/MIN PRN Reason: SUSTAINED ROSEMARIE <30 Insulin Human Lispro (Humalog) 0 units SC .AGGRESSIVE SLIDING PRN; Protocol PRN Reason: AGGRESSIVE SLIDING SCALE Last Admin: 11/14/17 09:58 Dose: 3 unit Lorazepam (Ativan) 2 mg SLOW IVP Q1H PRN PRN Reason: Breakthrough agitation Stop: 12/09/17 02:19 Last Admin: 11/14/17 10:45 Dose: 2 mg Lorazepam (Ativan) 1 mg SLOW IVP Q4H [facility] Last Admin: 11/14/17 08:41 Dose: 1 mg Magnesium Oxide (Magnesium Oxide) 400 mg PO BIDPRN PRN PRN Reason: FOR SERUM MAG 1.4 - 2.0 Magnesium Oxide (Magnesium Oxide) 800 mg PO PRN PRN PRN Reason: FOR SERUM MAG < 1.4 Methylprednisolone Sodium Succinate (Solu-Medrol) 40 mg IVP DAILY [facility] Last Admin: 11/14/17 08:39 Dose: 40 mg Miscellaneous Medication (Phos-Nak) 1 pkt PO TIDPRN PRN PRN Reason: FOR PHOS LEVEL 1.0 - 1.8 Miscellaneous Medication (Phos-Nak) 2 pkt PO TIDPRN PRN PRN Reason: FOR PHOS LEVEL 0.5 - 1.0 Morphine Sulfate (Morphine) 2 mg SLOW IVP Q1H PRN PRN Reason: breakthrough pain/agitation Stop: 12/09/17 02:19 Discontinue Previous Narcotic Pain Medications And Benzodiazepines 1 each FS .ONE [facility] Stop: 12/09/17 02:19 Ccu Electrolyte (Replacement Protocol) 0 each FS PRN PRN PRN Reason: FOR ELECTROLYTE REPLACEMENT Ondansetron HCl (Zofran) 4 mg IVP Q6H PRN PRN Reason: Nausea/Vomiting Pantoprazole Sodium (Protonix) 40 mg IVP 0900 [facility] Last Admin: 11/14/17 08:39 Dose: 40 mg Potassium Chloride (K-Dur) 40 meq PO ASDIR PRN PRN Reason: FOR SERUM K+ 2.5 - 3.5 Potassium Chloride (Klor-Con) 40 meq PER TUBE ASDIR PRN PRN Reason: FOR SERUM K+ 2.5-3.5 Propofol (Diprivan) 1,000 mg IV INF PRN; Protocol PRN Reason: TO ACHIEVE GOAL RASS Stop: 12/09/17 02:19 Last Admin: 11/14/17 11:04 Dose: 1,000 mg Propofol (Diprivan Bolus) 20 mg IV Q5MIN PRN PRN Reason: BREAKTHROUGH AGITATION Stop: 12/09/17 02:19
--- NOTE | 2017-11-14 12:03 | PRG ---
DATE OF SERVICE: 11/14/2017 SUBJECTIVE: Mr. Chau is afebrile. PHYSICAL EXAMINATION: VITAL SIGNS: Heart rates in the 50s, blood pressure 159/82, respiratory rate is 20. He had bradycar kenny last night requiring atropine and was told his rate dropped into the 30s. LUNGS: Remarkable for mild rhonchi bilaterally. HEART: Regular rhythm. S1 and S2 are normal. ABDOMEN: Soft and nontender. EXTREMITIES: No clubbing, cyanosis, or edema. IMAGING DATA AND LABORATORY DATA: Chest radiographs unchanged. He has some vascular congestion julian ges, but his films are also difficult because of his size. White count 7.2, hemoglobin 11.5, and platelets 238. Sodium 142, potassium 3.6, chloride 104, bicarbonate 30, BUN 14, creatinine 0.76, pH 7.38, pCO2 of 48 , pO2 of 70 yesterday, no blood gas has been done today. IMPRESSION: 1. Bradycardia ? sick sinus, needing pacemaker. EP has been consulted. 2. Respiratory failure of unclear etiology. I wonder if he did get hypercarbic with oxygen administ ration in the emergency room leading to somnolence which led to hypotension which led to his intubati on. I found no clear pulmonary pathological cause of his need for intubation. 3. Morbid obesity. 4.? paranoid schizophrenia. He is on routine Haldol, although his Haldol was held last night. I owen bhanu an order not to hold his Haldol and if anything, taper down his propofol. He is now on dobutamine for his heart rate. He did not have a coughing episode last night or tube biting episode that led to the bradycardia, so I suspect he unfortunately does have sick sinus. There are no drugs that he is getting that are cont ributing to this. For now discontinue his Precedex since he is still on all these other medications. He is on dobutamine, need to focus on just using one drug that is sedating. He has nothing that brin gs up significant pain, so we will discontinue his fentanyl. Continue with propofol for now and to s implify his medicines. He is little bronchospastic today, but he is already on steroids 40 mg IV onc e a day which should be enough and get his nebulized treatments every 4 hours. He is not weanable in my opinion until we decide whether or not he needs pacing. He will remain on Zosyn as well. Critical care time was 30 minutes.
[2017-11-14] MEDS ORDERED: Lidocaine 1% (PF) 30 ML VIAL ONE ×2 (14:18→14:23)
[2017-11-14] MEDS ORDERED: Propofol 1,000 MG/100 ML VIAL IV ONE (15:23)
[2017-11-14] MEDS: hydrALAZINE 20 MG/ML VIAL SLOW IVP PRN (16:35)
--- NOTE | 2017-11-14 21:29 | RAD ---
AP VIEW CHEST: 11/14/17 HISTORY: Status post pacemaker placement. AP view chest obtained on 11/14/17. Comparison made to previous exam from earlier in the day on 11/14/17. AP view chest demonstrates nasogastric and endotracheal tubes to be in place. The right jugular centr al line is again seen. There has been placement of a right subclavian intracardiac pacing device, distal tip overlying the r ight atrium. Cardiomegaly is seen. Pulmonary vascular congestion is noted. IMPRESSION: 1. Cardiomegaly and pulmonary vascular congestion. 2. Placement of a right subclavian pacing device with no evidence of hemo or pneumothorax seen. POS: [facility]
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
[2017-11-15] MEDS: hydrALAZINE 20 MG/ML VIAL SLOW IVP PRN (01:51)
[2017-11-15] MEDS: Propofol 1,000 MG/100 ML VIAL IV PRN ×7 (01:51→20:31)
[2017-11-15] MEDS: Haloperidol Lactate 5 MG/ML VIAL IM SCH ×6 (01:57→21:05)
[2017-11-15] MEDS: Lorazepam 2 MG/ML VIAL SLOW IVP SCH ×6 (01:58→21:05)
[2017-11-15] MEDS: fentaNYL Citrate/PF 2,000 MCG in Sodium Chloride 0.9% 60 ML IV SCH (04:48)
[2017-11-15 05:26] LABS: Anion Gap 13 mmol/L (10-20); BUN (Urea Nitrogen) 12 mg/dL (8.9-20.6); Calc. Creatinine Clearance 324 mL/min (70-130); Calcium 9.3 mg/dL (7.8-10.44); Carbon Dioxide 31 mmol/L (22-29); Chloride 98 mmol/L (98-107); Estimated GFR-MDRD Greater than 90; Glucose 123 mg/dL (70-105); Potassium 3.2 mmol/L (3.5-5.1); Sodium 139 mmol/L (136-145)
[2017-11-15 05:52] LABS: Hemoglobin 12.5 g/dL (14.0-18.0); Lymphocytes 16 % (21-51); MDiff Complete? YES; Mean Corpuscular HGB CONC 33.3 g/dL (32.0-36.0); Mean Corpuscular Hemoglobin 29.3 pg (27.0-31.0); Mean Platelet Volume 6.3 fL (7.4-10.4); Monocytes 12 % (0-10); Neutrophil 72 % (42-75); PLT Morphology Comment Appears Adequate; Platelet Count 256 thou/uL (130-400); RBC Distribution Width 14.9 % (11.5-14.5); Red Blood Cell (RBC) Count 4.28 mill/uL (4.70-6.10); White Blood Cell (WBC) Count 9.6 thou/uL (4.8-10.8)
[2017-11-15] MEDS: Piperacillin/Tazobactam 3.375 GM in Sodium Chloride 0.9% 100 ML IVPB SCH ×3 (06:00→17:16)
[2017-11-15] MEDS ORDERED: Piperacillin/Tazobactam 3.375 GM VIAL ONE (06:06)
[2017-11-15] MEDS: Potassium Chloride 40 MEQ in Premix Bag 1 BAG IVPB PRN (08:59)
--- NOTE | 2017-11-15 09:10 | RAD ---
PORTABLE CHEST: Date: 11/15/17 HISTORY: Respiratory distress. COMPARISON: Prior day's exam. FINDINGS: Endotracheal tube is in satisfactory position. NG tube is difficult to visualize, but appears to be b elow the hemidiaphragm. Heart size is enlarged. Parenchymal lung changes appear worsened as compared to the prior examination. Increasing opacification in the right lung base is seen. IMPRESSION: Worsening overall appearance to the chest, particularly changes in the right lung base with increased opacification in this region. Endotracheal tube, NG tube, and right-sided central line appear unchan ged. POS: [facility]
[2017-11-15] MEDS: Enoxaparin Sodium 40 MG/0.4 ML SYRINGE SC SCH (09:30)
[2017-11-15] MEDS: Pantoprazole 40 MG VIAL IVP SCH (09:31)
[2017-11-15] MEDS: Furosemide 40 MG/4 ML VIAL SLOW IVP SCH ×2 (09:31→21:05)
--- NOTE | 2017-11-15 10:59 | PRG ---
DATE OF SERVICE: 11/15/2017 35 minutes critical care time. SUBJECTIVE: The patient remains intubated on mechanical ventilation. He does follow commands. PHYSICAL EXAMINATION: VITAL SIGNS: His temperature is 99.7, pulse 110, blood pressure 109/57, 24-hour intake 1705, output 4310. HEENT: Unremarkable. NECK: No JVD. LUNGS: Poor air movement. CARDIOVASCULAR: S1 and S2, regular. ABDOMEN: Morbidly obese. EXTREMITIES: Severe stasis changes over both pretibial regions. LABORATORY DATA: Sodium 139, potassium 3.2, chloride 90, CO2 of 31, BUN 12, creatinine 0.7, glucose 123. White blood cell count 9.6, hematocrit 37.7, platelet count 256. His chest x-ray shows worseni ng of bilateral infiltrates. ASSESSMENT: 1. Acute respiratory failure, requiring mechanical ventilation. 2. Congestive heart failure. 3. Bradycardia. 4. Paranoid schizophrenia. PLAN: 1. The patient is not weanable secondary to hypoxemia. 2. Pacemaker has been placed yesterday. 3. He needs more profound diuresis. 4. Start enteral tube feeds.
--- NOTE | 2017-11-15 16:29 | PDOC.PN ---
- Subjective Encounter Start Date: 11/15/17 Encounter Start Time: 11:30 -: non-verbal Subjective: pt intubated - Objective Resuscitation Status: Resuscitation Status FULL:Full Resuscitation Vital Signs & Weight: Vital Signs (12 hours) Temp Pulse Resp BP Pulse Ox 11/15/17 16:00 99.0 F 18 11/15/17 14:49 112 H 135/73 11/15/17 14:00 15 11/15/17 13:19 107 H 157/84 H 11/15/17 12:00 99.3 F 18 11/15/17 10:51 104 H 118/52 L 11/15/17 10:00 16 11/15/17 08:26 123 H 11/15/17 08:06 128 H 109/55 L 11/15/17 08:00 100.3 F H 107 H 20 93 L 11/15/17 07:00 100.3 F H 11/15/17 06:00 20 Weight Admit Weight 373 lb Weight 372 lb 9.299 oz Most Recent Monitor Data Heart Rate from ECG 112 NIBP 144/77 NIBP BP-Mean 93 Respiration from ECG 18 SpO2 96 I&O: 11/14/17 11/15/17 11/16/17 06:59 06:59 06:59 Intake Total 1705.3 905 Output Total 4310 5275 2800 Balance -2604.7 -4370 -2800 Result Diagrams: 11/15/17 05:11 11/15/17 05:11 Additional Labs: Accuchecks 11/15/17 11/14/17 11/14/17 12:04 22:50 16:28 POC Glucose 152 H 112 H 145 H Phys Exam - Physical Examination Neck: no nodes, no JVD, supple, full ROM mild rhonchi Cardiovascular: RRR, no significant murmur, no rub, gallop, irregular Gastrointestinal: soft, positive bowel sounds significant venous changes to lower ext, significant edema Dx/Plan - Plan (1) Acute encephalopathy (2) Acute respiratory failure with hypoxia (3) bradycardia (4)hypokalemia (5) Lymphedema of both lower extremities (6) Morbid obesity with BMI of 45.0-49.9, adult (7) Tobacco abuse (8) Wound of left lower extremity (9) DAVID (obstructive sleep apnea) (10) Acute kidney failure (11) Sinus pause (12) Chronic venous stasis dermatitis of both lower extremities plan: pt had temporary pacemaker placed. continue abx, Diuretics started. pt not weanable due to hypoxia. potassium replaced * . Review of Systems - Review of Systems Other: unable to participate, pt intubated - Medications/Allergies Allergies/Adverse Reactions: Allergies Allergy/AdvReac Type Severity Reaction Status Date / Time vancomycin Allergy Verified 11/09/17 05:23 Medications: Current Medications Acetaminophen (Tylenol) 650 mg AL Q4H PRN PRN Reason: Headache/Fever or Pain Acetaminophen (Tylenol) 650 mg PER TUBE Q4H PRN PRN Reason: Headache/Fever or Pain Albuterol/Ipratropium (Duoneb) 3 ml NEB [id number] [facility] Last Admin: 11/15/17 14:49 Dose: 3 ml Atropine Sulfate (Atropine) 1 mg IVP Q4H PRN PRN Reason: BRADYCARDIA < 30 Last Admin: 11/13/17 23:44 Dose: 1 mg Bisacodyl (Dulcolax) 10 mg AL Q24H PRN PRN Reason: Constipation Dextrose/Water (Dextrose 50%) 25 gm SLOW IVP PRN PRN PRN Reason: Hypoglycemia Enoxaparin Sodium (Lovenox) 40 mg SC 0900 [facility] Last Admin: 11/15/17 09:30 Dose: 40 mg Furosemide (Lasix) 40 mg SLOW IVP BID [facility] Last Admin: 11/15/17 09:31 Dose: 40 mg Glucagon (Glucagon) 1 mg IM PRN PRN PRN Reason: Hypoglycemia Haloperidol Lactate (Haldol) 10 mg IM Q4H [facility] Last Admin: 11/15/17 12:49 Dose: 10 mg Hydralazine HCl (Apresoline) 10 mg SLOW IVP Q4H PRN PRN Reason: FOR SBP >160 Last Admin: 11/15/17 01:51 Dose: 10 mg Fentanyl Citrate 2,000 mcg/ (Sodium Chloride) 100 mls @ 0 mls/hr IV INF RADHA PRN Reason: As Directed Last Admin: 11/15/17 04:48 Dose: 100 mls Potassium Chloride 40 meq/ (Sodium Chloride) 270 mls @ 135 mls/hr IVPB ASDIR PRN PRN Reason: FOR SERUM K+ 2.5 - 3.5 Potassium Chloride 40 meq/ (Device) 100 mls @ 50 mls/hr IVPB ASDIR PRN PRN Reason: FOR SERUM K+ 2.5 - 3.5 Last Admin: 11/15/17 08:59 Dose: 100 mls Magnesium Sulfate 1 gm/ Sodium (Chloride) 102 mls @ 102 mls/hr IV PRN PRN PRN Reason: MAG LEVEL 1.4 - 2.0 Magnesium Sulfate 2 gm/ Device 100 mls @ 100 mls/hr IVPB ASDIR PRN PRN Reason: MAGNESIUM < 1.4 Potassium Phosphate 9 mmol/ (Sodium Chloride) 103 mls @ 25.75 mls/hr IVPB ASDIR PRN PRN Reason: Phosphate 1.0-1.8 Potassium Phosphate 12 mmol/ (Sodium Chloride) 254 mls @ 63.5 mls/hr IV ASDIR PRN PRN Reason: Serum phosphate 0.5-0.9 Potassium Phosphate 15 mmol/ (Sodium Chloride) 255 mls @ 63.75 mls/hr IV ASDIR PRN PRN Reason: Serum Phos < 0.5 Piperacillin Sod/Tazobactam (Sod 3.375 gm/ Sodium Chloride) 100 mls @ 200 mls/ hr IVPB Q6HR [facility] Last Admin: 11/15/17 12:49 Dose: 100 mls Dextrose/Water (D5w) 1,000 mls @ 0 mls/hr IV .Q0M PRN; As Directed PRN Reason: Hypoglycemia Dobutamine HCl/Dextrose 500 mg (/ Device) 250 mls @ 25.86 mls/hr IVPB INF PRN; Protocol; 5 MCG/KG/MIN PRN Reason: SUSTAINED ROSEMARIE <30 Insulin Human Lispro (Humalog) 0 units SC .AGGRESSIVE SLIDING PRN; Protocol PRN Reason: AGGRESSIVE SLIDING SCALE Last Admin: 11/14/17 09:58 Dose: 3 unit Lorazepam (Ativan) 2 mg SLOW IVP Q1H PRN PRN Reason: Breakthrough agitation Stop: 12/09/17 02:19 Last Admin: 11/14/17 10:45 Dose: 2 mg Lorazepam (Ativan) 1 mg SLOW IVP Q4H [facility] Last Admin: 11/15/17 12:50 Dose: 1 mg Magnesium Oxide (Magnesium Oxide) 400 mg PO BIDPRN PRN PRN Reason: FOR SERUM MAG 1.4 - 2.0 Magnesium Oxide (Magnesium Oxide) 800 mg PO PRN PRN PRN Reason: FOR SERUM MAG < 1.4 Methylprednisolone Sodium Succinate (Solu-Medrol) 40 mg IVP DAILY [facility] Last Admin: 11/15/17 09:31 Dose: 40 mg Miscellaneous Medication (Phos-Nak) 1 pkt PO TIDPRN PRN PRN Reason: FOR PHOS LEVEL 1.0 - 1.8 Miscellaneous Medication (Phos-Nak) 2 pkt PO TIDPRN PRN PRN Reason: FOR PHOS LEVEL 0.5 - 1.0 Morphine Sulfate (Morphine) 2 mg SLOW IVP Q1H PRN PRN Reason: breakthrough pain/agitation Stop: 12/09/17 02:19 Discontinue Previous Narcotic Pain Medications And Benzodiazepines 1 each FS .ONE [facility] Stop: 12/09/17 02:19 Ccu Electrolyte (Replacement Protocol) 0 each FS PRN PRN PRN Reason: FOR ELECTROLYTE REPLACEMENT Ondansetron HCl (Zofran) 4 mg IVP Q6H PRN PRN Reason: Nausea/Vomiting Pantoprazole Sodium (Protonix) 40 mg IVP 0900 [facility] Last Admin: 11/15/17 09:31 Dose: 40 mg Potassium Chloride (K-Dur) 40 meq PO ASDIR PRN PRN Reason: FOR SERUM K+ 2.5 - 3.5 Potassium Chloride (Klor-Con) 40 meq PER TUBE ASDIR PRN PRN Reason: FOR SERUM K+ 2.5-3.5 Propofol (Diprivan) 1,000 mg IV INF PRN; Protocol PRN Reason: TO ACHIEVE GOAL RASS Stop: 12/09/17 02:19 Last Admin: 11/15/17 12:50 Dose: 1,000 mg Propofol (Diprivan Bolus) 20 mg IV Q5MIN PRN PRN Reason: BREAKTHROUGH AGITATION Stop: 12/09/17 02:19
--- NOTE | 2017-11-15 16:36 | EKG ---
Test Reason : Blood Pressure : / mmHG Vent. Rate : 141 BPM Atrial Rate : 141 BPM P-R Int : 120 ms QRS Dur : 078 ms QT Int : 284 ms P-R-T Axes : 055 021 053 degrees QTc Int : 434 ms Sinus tachycardia Nonspecific ST abnormality Abnormal ECG Confirmed by JAELYN CONRAD [id number]), deputy editor in chief VALERY SANCHEZ ([id number]) on 11/15/2017 4:35:41 PM Referred By: Confirmed By:JAELYN CONRAD
[2017-11-16] MEDS: Propofol 1,000 MG/100 ML VIAL IV PRN ×5 (00:03→19:43)
[2017-11-16] MEDS: Piperacillin/Tazobactam 3.375 GM in Sodium Chloride 0.9% 100 ML IVPB SCH ×4 (00:03→18:04)
[2017-11-16] MEDS: fentaNYL Citrate/PF 2,000 MCG in Sodium Chloride 0.9% 60 ML IV SCH (00:38)
[2017-11-16] MEDS: Lorazepam 2 MG/ML VIAL SLOW IVP SCH ×7 (00:45→20:56)
[2017-11-16] MEDS: Haloperidol Lactate 5 MG/ML VIAL IM SCH ×6 (00:45→20:56)
[2017-11-16 04:51] LABS: Anion Gap 12 mmol/L (10-20); BUN (Urea Nitrogen) 18 mg/dL (8.9-20.6); Band 3 % (5-11); Calc. Creatinine Clearance 293 mL/min (70-130); Calcium 9.3 mg/dL (7.8-10.44); Carbon Dioxide 37 mmol/L (22-29); Chloride 94 mmol/L (98-107); Eosinophils 1 % (0-10); Estimated GFR-MDRD Greater than 90; Glucose 148 mg/dL (70-105); Hemoglobin 12.4 g/dL (14.0-18.0); Lymphocytes 26 % (21-51); MDiff Complete? YES; Mean Corpuscular HGB CONC 32.2 g/dL (32.0-36.0); Mean Corpuscular Hemoglobin 28.6 pg (27.0-31.0); Mean Corpuscular Volume 88.8 fl (80.0-94.0); Monocytes 6 % (0-10); Neutrophil 64 % (42-75); PLT Morphology Comment Appears Adequate; Platelet Count 262 thou/uL (130-400); Potassium 3.3 mmol/L (3.5-5.1); RBC Distribution Width 14.7 % (11.5-14.5); Red Blood Cell (RBC) Count 4.33 mill/uL (4.70-6.10); Sodium 140 mmol/L (136-145); White Blood Cell (WBC) Count 8.8 thou/uL (4.8-10.8)
[2017-11-16] MEDS: Potassium Chloride 40 MEQ in Premix Bag 1 BAG IVPB PRN (06:48)
[2017-11-16 08:55] LABS: Actual Bicarbonate (HCO3a) 36.5 mEq/L (22-26); Base Excess (BEa) 10.8 mEq/L (0 (+/-) 2.5); CO2 Tension 53.1 mmHg (35.0-45.0); O2 Tension (PaO2) 83.6 mmHg (80.0-100.0); pH, Arterial 7.46 (7.35-7.45)
[2017-11-16 08:56] LABS: ALV-art Gradient 133.225 (0-20); Calcium, Ionized 1.1 mmol/L (1.12-1.30); Hematocrit-ABG 41.1 % (42.0-52.0); Hemoglobin (Hb) 12.6 g/dL (14.0-18.0); Puncture Site RRA
[2017-11-16] MEDS: Enoxaparin Sodium 40 MG/0.4 ML SYRINGE SC SCH (10:25)
[2017-11-16] MEDS: Pantoprazole 40 MG VIAL IVP SCH (10:26)
[2017-11-16] MEDS: Furosemide 40 MG/4 ML VIAL SLOW IVP SCH ×2 (10:26→20:56)
--- NOTE | 2017-11-16 10:36 | RAD ---
PORTABLE CHEST: Date: 11/16/17 HISTORY: Respiratory distress. COMPARISON: Prior day's study. FINDINGS: Heart size is enlarged with a pacemaker in place. Endotracheal tube and NG tubes appear in satisfacto ry position. Interstitial alveolar lung changes are perhaps slightly improved as compared to the prio r exam, although the difference is minimal. IMPRESSION: Questionable slight improvement to the interstitial alveolar lung change. POS: [facility]
--- NOTE | 2017-11-16 11:33 | PRG ---
DATE OF SERVICE: 11/16/2017 SUBJECTIVE: Mr. Chau remains intubated on mechanical ventilation. He apparently is tearful at times . OBJECTIVE: VITAL SIGNS: Temperature is 99.0, pulse 92, blood pressure 116/57, 24-hour intake 1757, output 6910, weight 370 pounds. HEENT: Unremarkable. NECK: Increased girth. CARDIAC: S1 and S2 regular. LUNGS: Coarse breath sounds. ABDOMEN: Soft, morbidly obese. EXTREMITIES: Edematous. LABORATORY DATA: A pH 7.46, pCO2 of 53, pO2 of 83 that is on SIMV rate 8, tidal volume 500, PEEP 5, pressure support 10, FiO2 40%. White blood count 8.8, hematocrit 38.5, platelet count 262. Sodium 1 40, potassium 3.3, chloride 94, CO2 37, BUN 18, creatinine 0.8, glucose 148. ASSESSMENT: 1. Acute on chronic respiratory failure, requiring mechanical ventilation. 2. Congestive heart failure. 3. Bradycardia. 4. Paranoid schizophrenia. 5. Morbid obesity. 6. Likely underlying obstructive sleep apnea. PLAN: Placed on pressure support ventilation. Hopefully, we can move toward extubation if he does w ell on that. Continuing diuresis, but probably need to back off on that tomorrow as his BUN creeps u p.
--- NOTE | 2017-11-16 15:51 | PDOC.PN ---
- Subjective Encounter Start Date: 11/16/17 Encounter Start Time: 10:20 Pt seen for followup re: acute hypoxic respiratory failure. Intubated, unable to complete ROS. - Objective Resuscitation Status: Resuscitation Status FULL:Full Resuscitation MAR Reviewed: Yes Vital Signs & Weight: Vital Signs (12 hours) Temp Pulse Resp BP Pulse Ox 11/16/17 14:31 99 130/72 11/16/17 13:27 101 H 151/89 H 11/16/17 10:48 103 H 111/53 L 11/16/17 10:00 12 11/16/17 08:00 98.6 F 103 H 15 95 11/16/17 07:31 103 H 91/40 L 11/16/17 07:00 98.6 F 11/16/17 06:00 13 11/16/17 04:00 99.0 F 14 Weight Admit Weight 373 lb Weight 370 lb 9.553 oz Most Recent Monitor Data Heart Rate from ECG 105 NIBP 118/56 NIBP BP-Mean 75 Respiration from ECG 24 SpO2 92 I&O: 11/15/17 11/16/17 11/17/17 06:59 06:59 06:59 Intake Total 905 1757 Output Total 5275 6910 700 Balance -4370 -5153 -700 Result Diagrams: 11/16/17 03:55 11/16/17 03:55 Additional Labs: Accuchecks 11/16/17 11/16/17 11/15/17 13:35 04:05 21:58 POC Glucose 231 H 141 H 122 H 11/15/17 17:46 POC Glucose 166 H EKG Reviewed by me: Yes (Tele:NSR) Phys Exam - Physical Examination Morbid obesity HEENT: moist MMs, sclera anicteric Intubated, no conjunctival pallor; OG tube+ Respiratory: no wheezing, no rales, no rhonchi, clear to auscultation bilateral Cardiovascular: RRR, no rub S1, S2 Gastrointestinal: soft, non-tender, positive bowel sounds distention Neurological: moves all 4 limbs Deviation from normal: Unable to assess mood, affect or orientation to person, place or time Deviation from normal: Cody LE lymphedema, cody LE stasis dermatitis, LLE dressing Dx/Plan (1) Acute respiratory failure with hypoxia Code(s): J96.01 - ACUTE RESPIRATORY FAILURE WITH HYPOXIA Status: Acute Comment: Intubated and mechanically ventilated. Continue antibiotics. (2) Sinus pause Code(s): I45.5 - OTHER SPECIFIED HEART BLOCK Status: Acute Comment: s/p temporary pacemaker (3) HLD (hyperlipidemia) Code(s): E78.5 - HYPERLIPIDEMIA, UNSPECIFIED Status: Chronic (4) Lymphedema of both lower extremities Code(s): I89.0 - LYMPHEDEMA, NOT ELSEWHERE CLASSIFIED Status: Chronic (5) Morbid obesity with BMI of 45.0-49.9, adult Code(s): E66.01 - MORBID (SEVERE) OBESITY DUE TO EXCESS CALORIES; Z68.42 - BODY MASS INDEX (BMI) 45.0-49.9, ADULT Status: Chronic (6) DAVID (obstructive sleep apnea) Code(s): G47.33 - OBSTRUCTIVE SLEEP APNEA (ADULT) (PEDIATRIC) Status: Chronic Comment: continue mechanical ventilation (7) Wound of left lower extremity Code(s): S81.802A - UNSPECIFIED OPEN WOUND, LEFT LOWER LEG, INITIAL ENCOUNTER Status: Chronic Comment: Continue IV antibiotics as below - Plan * . Review of Systems - Medications/Allergies Allergies/Adverse Reactions: Allergies Allergy/AdvReac Type Severity Reaction Status Date / Time vancomycin Allergy Verified 11/09/17 05:23 Medications: Current Medications Acetaminophen (Tylenol) 650 mg NV Q4H PRN PRN Reason: Headache/Fever or Pain Acetaminophen (Tylenol) 650 mg PER TUBE Q4H PRN PRN Reason: Headache/Fever or Pain Albuterol/Ipratropium (Duoneb) 3 ml NEB [id number] [facility] Last Admin: 11/16/17 14:31 Dose: 3 ml Atropine Sulfate (Atropine) 1 mg IVP Q4H PRN PRN Reason: BRADYCARDIA < 30 Last Admin: 11/13/17 23:44 Dose: 1 mg Bisacodyl (Dulcolax) 10 mg NV Q24H PRN PRN Reason: Constipation Dextrose/Water (Dextrose 50%) 25 gm SLOW IVP PRN PRN PRN Reason: Hypoglycemia Enoxaparin Sodium (Lovenox) 40 mg SC 0900 [facility] Last Admin: 11/16/17 10:25 Dose: 40 mg Furosemide (Lasix) 40 mg SLOW IVP BID [facility] Last Admin: 11/16/17 10:26 Dose: 40 mg Glucagon (Glucagon) 1 mg IM PRN PRN PRN Reason: Hypoglycemia Haloperidol Lactate (Haldol) 10 mg IM Q4H [facility] Last Admin: 11/16/17 14:58 Dose: 10 mg Hydralazine HCl (Apresoline) 10 mg SLOW IVP Q4H PRN PRN Reason: FOR SBP >160 Last Admin: 11/15/17 01:51 Dose: 10 mg Fentanyl Citrate 2,000 mcg/ (Sodium Chloride) 100 mls @ 0 mls/hr IV INF RADHA PRN Reason: As Directed Last Admin: 11/16/17 00:38 Dose: 100 mls Potassium Chloride 40 meq/ (Sodium Chloride) 270 mls @ 135 mls/hr IVPB ASDIR PRN PRN Reason: FOR SERUM K+ 2.5 - 3.5 Potassium Chloride 40 meq/ (Device) 100 mls @ 50 mls/hr IVPB ASDIR PRN PRN Reason: FOR SERUM K+ 2.5 - 3.5 Last Admin: 11/16/17 06:48 Dose: 100 mls Magnesium Sulfate 1 gm/ Sodium (Chloride) 102 mls @ 102 mls/hr IV PRN PRN PRN Reason: MAG LEVEL 1.4 - 2.0 Magnesium Sulfate 2 gm/ Device 100 mls @ 100 mls/hr IVPB ASDIR PRN PRN Reason: MAGNESIUM < 1.4 Potassium Phosphate 9 mmol/ (Sodium Chloride) 103 mls @ 25.75 mls/hr IVPB ASDIR PRN PRN Reason: Phosphate 1.0-1.8 Potassium Phosphate 12 mmol/ (Sodium Chloride) 254 mls @ 63.5 mls/hr IV ASDIR PRN PRN Reason: Serum phosphate 0.5-0.9 Potassium Phosphate 15 mmol/ (Sodium Chloride) 255 mls @ 63.75 mls/hr IV ASDIR PRN PRN Reason: Serum Phos < 0.5 Piperacillin Sod/Tazobactam (Sod 3.375 gm/ Sodium Chloride) 100 mls @ 200 mls/ hr IVPB Q6HR [facility] Last Admin: 11/16/17 13:00 Dose: 100 mls Dextrose/Water (D5w) 1,000 mls @ 0 mls/hr IV .Q0M PRN; As Directed PRN Reason: Hypoglycemia Insulin Human Lispro (Humalog) 0 units SC .AGGRESSIVE SLIDING PRN; Protocol PRN Reason: AGGRESSIVE SLIDING SCALE Last Admin: 11/14/17 09:58 Dose: 3 unit Lorazepam (Ativan) 2 mg SLOW IVP Q1H PRN PRN Reason: Breakthrough agitation Stop: 12/09/17 02:19 Last Admin: 11/14/17 10:45 Dose: 2 mg Lorazepam (Ativan) 1 mg SLOW IVP Q4H [facility] Last Admin: 11/16/17 14:59 Dose: 1 mg Magnesium Oxide (Magnesium Oxide) 400 mg PO BIDPRN PRN PRN Reason: FOR SERUM MAG 1.4 - 2.0 Magnesium Oxide (Magnesium Oxide) 800 mg PO PRN PRN PRN Reason: FOR SERUM MAG < 1.4 Methylprednisolone Sodium Succinate (Solu-Medrol) 40 mg IVP DAILY [facility] Last Admin: 11/16/17 10:26 Dose: 40 mg Miscellaneous Medication (Phos-Nak) 1 pkt PO TIDPRN PRN PRN Reason: FOR PHOS LEVEL 1.0 - 1.8 Miscellaneous Medication (Phos-Nak) 2 pkt PO TIDPRN PRN PRN Reason: FOR PHOS LEVEL 0.5 - 1.0 Morphine Sulfate (Morphine) 2 mg SLOW IVP Q1H PRN PRN Reason: breakthrough pain/agitation Stop: 12/09/17 02:19 Discontinue Previous Narcotic Pain Medications And Benzodiazepines 1 each FS .ONE [facility] Stop: 12/09/17 02:19 Ccu Electrolyte (Replacement Protocol) 0 each FS PRN PRN PRN Reason: FOR ELECTROLYTE REPLACEMENT Ondansetron HCl (Zofran) 4 mg IVP Q6H PRN PRN Reason: Nausea/Vomiting Pantoprazole Sodium (Protonix) 40 mg IVP 0900 [facility] Last Admin: 11/16/17 10:26 Dose: 40 mg Potassium Chloride (K-Dur) 40 meq PO ASDIR PRN PRN Reason: FOR SERUM K+ 2.5 - 3.5 Potassium Chloride (Klor-Con) 40 meq PER TUBE ASDIR PRN PRN Reason: FOR SERUM K+ 2.5-3.5 Propofol (Diprivan) 1,000 mg IV INF PRN; Protocol PRN Reason: TO ACHIEVE GOAL RASS Stop: 12/09/17 02:19 Last Admin: 11/16/17 10:25 Dose: 1,000 mg Propofol (Diprivan Bolus) 20 mg IV Q5MIN PRN PRN Reason: BREAKTHROUGH AGITATION Stop: 12/09/17 02:19
[2017-11-16] MEDS: HumaLOG 300 UNITS/3 ML VIAL SC PRN (18:10)
[2017-11-17] MEDS: Piperacillin/Tazobactam 3.375 GM in Sodium Chloride 0.9% 100 ML IVPB SCH ×4 (00:05→17:02)
[2017-11-17] MEDS: Haloperidol Lactate 5 MG/ML VIAL IM SCH ×5 (00:55→20:06)
[2017-11-17] MEDS: Lorazepam 2 MG/ML VIAL SLOW IVP SCH ×4 (00:56→13:00)
[2017-11-17] MEDS: Propofol 1,000 MG/100 ML VIAL IV PRN ×2 (01:08→05:54)
[2017-11-17] MEDS: fentaNYL Citrate/PF 2,000 MCG in Sodium Chloride 0.9% 60 ML IV SCH (03:22)
[2017-11-17 04:28] LABS: Band 1 % (5-11); Eosinophils 2 % (0-10); Lymphocytes 19 % (21-51); MDiff Complete? YES; Mean Corpuscular HGB CONC 32.2 g/dL (32.0-36.0); Mean Corpuscular Hemoglobin 28.8 pg (27.0-31.0); Mean Corpuscular Volume 89.5 fl (80.0-94.0); Neutrophil 78 % (42-75); PLT Morphology Comment Appears Adequate; Platelet Count 256 thou/uL (130-400); RBC Distribution Width 14.7 % (11.5-14.5); White Blood Cell (WBC) Count 10.1 thou/uL (4.8-10.8)
[2017-11-17 04:36] LABS: Anion Gap 13 mmol/L (10-20); BUN (Urea Nitrogen) 27 mg/dL (8.9-20.6); Calc. Creatinine Clearance 248 mL/min (70-130); Calcium 9.4 mg/dL (7.8-10.44); Carbon Dioxide 37 mmol/L (22-29); Chloride 93 mmol/L (98-107); Estimated GFR-MDRD 86; Glucose 154 mg/dL (70-105); Potassium 3.3 mmol/L (3.5-5.1); Sodium 140 mmol/L (136-145)
[2017-11-17] MEDS: Potassium Chloride 40 MEQ in Premix Bag 1 BAG IVPB PRN (05:34)
[2017-11-17 08:41] LABS: Actual Bicarbonate (HCO3a) 38.9 mEq/L (22-26); Base Excess (BEa) 11.3 mEq/L (0 (+/-) 2.5); CO2 Tension 66.6 mmHg (35.0-45.0); Hematocrit-ABG 39.7 % (42.0-52.0); Hemoglobin (Hb) 12.1 g/dL (14.0-18.0); O2 Tension (PaO2) 88.9 mmHg (80.0-100.0); pH, Arterial 7.38 (7.35-7.45)
[2017-11-17 08:42] LABS: Calcium, Ionized 1.1 mmol/L (1.12-1.30); Puncture Site LRA
[2017-11-17] MEDS: Furosemide 40 MG/4 ML VIAL SLOW IVP SCH ×2 (09:23→20:06)
[2017-11-17] MEDS: Pantoprazole 40 MG VIAL IVP SCH (09:23)
[2017-11-17] MEDS: Enoxaparin Sodium 40 MG/0.4 ML SYRINGE SC SCH (09:24)
[2017-11-17] MEDS: HumaLOG 300 UNITS/3 ML VIAL SC PRN ×2 (11:04→16:18)
[2017-11-17] MEDS ORDERED: Hydrocortisone Sod Succ/PF 100 mg/2 ml Vial IVP SCH (12:00)
[2017-11-17] MEDS ORDERED: Lorazepam 2 MG/ML VIAL SLOW IVP SCH ×2 (15:00→19:00)
--- NOTE | 2017-11-17 17:00 | PDOC.PN ---
- Subjective Encounter Start Date: 11/17/17 Encounter Start Time: 09:40 Pt seen for followup re: acute hypoxic respiratory failure. Intubated, unable to complete ROS. Waking up to voice but not following commands. - Objective Resuscitation Status: Resuscitation Status FULL:Full Resuscitation MAR Reviewed: Yes Vital Signs & Weight: Vital Signs (12 hours) Temp Pulse Resp BP Pulse Ox 11/17/17 16:00 91 L 11/17/17 15:30 115 H 23 H 96 11/17/17 14:59 113 H 15 98 11/17/17 12:00 94 L 11/17/17 11:42 115 H 15 95 11/17/17 10:18 115 H 113/55 L 11/17/17 10:17 94 8 L 95 11/17/17 10:00 21 H 11/17/17 08:00 13 11/17/17 07:53 91 99/45 L 11/17/17 07:50 92 9 L 96 11/17/17 07:39 98.4 F 94 7 L 94 L 11/17/17 06:00 12 Weight Admit Weight 373 lb Weight 367 lb 15.224 oz Most Recent Monitor Data Heart Rate from ECG 107 NIBP 131/80 NIBP BP-Mean 104 Respiration from ECG 17 SpO2 91 I&O: 11/16/17 11/17/17 11/18/17 06:59 06:59 06:59 Intake Total 1757 2147 337.6 Output Total 6910 4205 2284 [facility] -5153 -2058 -1946.4 Result Diagrams: 11/17/17 03:45 11/17/17 03:45 Additional Labs: Accuchecks 11/17/17 11/17/17 11/17/17 16:19 11:05 03:50 POC Glucose 202 H 193 H 150 H 11/16/17 11/16/17 22:11 18:11 POC Glucose 105 157 H EKG Reviewed by me: Yes (Tele: NSR) Phys Exam - Physical Examination Morbid obesity HEENT: moist MMs, sclera anicteric Intubated, orogastric tube Neck: no nodes Respiratory: no wheezing, no rales, no rhonchi, clear to auscultation bilateral Cardiovascular: RRR, no rub S1, S2 Gastrointestinal: soft, non-tender, positive bowel sounds distention Musculoskeletal: edema present Neurological: moves all 4 limbs Deviation from normal: Unable to assess mood, affect or orientation to person, place or time Deviation from normal: LLE wound,alberto LE stasis dermatitis Dx/Plan (1) Acute respiratory failure with hypoxia Code(s): J96.01 - ACUTE RESPIRATORY FAILURE WITH HYPOXIA Status: Acute Comment: continues to be intubated and mechanically ventilated. Will continue antibiotics. (2) Sinus pause Code(s): I45.5 - OTHER SPECIFIED HEART BLOCK Status: Acute Comment: s/p temporary pacemaker; pt has been maintaining normal heart rate (3) HLD (hyperlipidemia) Code(s): E78.5 - HYPERLIPIDEMIA, UNSPECIFIED Status: Chronic Comment: Nil acute (4) Lymphedema of both lower extremities Code(s): I89.0 - LYMPHEDEMA, NOT ELSEWHERE CLASSIFIED Status: Chronic Comment: Nil acute (5) Morbid obesity with BMI of 45.0-49.9, adult Code(s): E66.01 - MORBID (SEVERE) OBESITY DUE TO EXCESS CALORIES; Z68.42 - BODY MASS INDEX (BMI) 45.0-49.9, ADULT Status: Chronic Comment: Nil acute (6) DAVID (obstructive sleep apnea) Code(s): G47.33 - OBSTRUCTIVE SLEEP APNEA (ADULT) (PEDIATRIC) Status: Chronic Comment: continue mechanical ventilation (7) Wound of left lower extremity Code(s): S81.802A - UNSPECIFIED OPEN WOUND, LEFT LOWER LEG, INITIAL ENCOUNTER Status: Chronic Comment: Continue IV antibiotics as below - Plan * . Review of Systems - Medications/Allergies Allergies/Adverse Reactions: Allergies Allergy/AdvReac Type Severity Reaction Status Date / Time vancomycin Allergy Verified 11/09/17 05:23 Medications: Current Medications Acetaminophen (Tylenol) 650 mg VA Q4H PRN PRN Reason: Headache/Fever or Pain Acetaminophen (Tylenol) 650 mg PER TUBE Q4H PRN PRN Reason: Headache/Fever or Pain Albuterol/Ipratropium (Duoneb) 3 ml NEB [id number] RADHA Last Admin: 11/17/17 14:59 Dose: 3 ml Atropine Sulfate (Atropine) 1 mg IVP Q4H PRN PRN Reason: BRADYCARDIA < 30 Last Admin: 11/13/17 23:44 Dose: 1 mg Bisacodyl (Dulcolax) 10 mg VA Q24H PRN PRN Reason: Constipation Dextrose/Water (Dextrose 50%) 25 gm SLOW IVP PRN PRN PRN Reason: Hypoglycemia Enoxaparin Sodium (Lovenox) 40 mg SC 0900 [facility] Last Admin: 11/17/17 09:24 Dose: 40 mg Furosemide (Lasix) 40 mg SLOW IVP BID [facility] Last Admin: 11/17/17 09:23 Dose: 40 mg Glucagon (Glucagon) 1 mg IM PRN PRN PRN Reason: Hypoglycemia Haloperidol Lactate (Haldol) 5 mg IM Q6H RADHA Hydralazine HCl (Apresoline) 10 mg SLOW IVP Q4H PRN PRN Reason: FOR SBP >160 Last Admin: 11/15/17 01:51 Dose: 10 mg Potassium Chloride 40 meq/ (Sodium Chloride) 270 mls @ 135 mls/hr IVPB ASDIR PRN PRN Reason: FOR SERUM K+ 2.5 - 3.5 Potassium Chloride 40 meq/ (Device) 100 mls @ 50 mls/hr IVPB ASDIR PRN PRN Reason: FOR SERUM K+ 2.5 - 3.5 Last Admin: 11/17/17 05:34 Dose: 100 mls Magnesium Sulfate 1 gm/ Sodium (Chloride) 102 mls @ 102 mls/hr IV PRN PRN PRN Reason: MAG LEVEL 1.4 - 2.0 Magnesium Sulfate 2 gm/ Device 100 mls @ 100 mls/hr IVPB ASDIR PRN PRN Reason: MAGNESIUM < 1.4 Potassium Phosphate 9 mmol/ (Sodium Chloride) 103 mls @ 25.75 mls/hr IVPB ASDIR PRN PRN Reason: Phosphate 1.0-1.8 Potassium Phosphate 12 mmol/ (Sodium Chloride) 254 mls @ 63.5 mls/hr IV ASDIR PRN PRN Reason: Serum phosphate 0.5-0.9 Potassium Phosphate 15 mmol/ (Sodium Chloride) 255 mls @ 63.75 mls/hr IV ASDIR PRN PRN Reason: Serum Phos < 0.5 Piperacillin Sod/Tazobactam (Sod 3.375 gm/ Sodium Chloride) 100 mls @ 200 mls/ hr IVPB Q6HR [facility] Last Admin: 11/17/17 11:10 Dose: 100 mls Dextrose/Water (D5w) 1,000 mls @ 0 mls/hr IV .Q0M PRN; As Directed PRN Reason: Hypoglycemia Insulin Human Lispro (Humalog) 0 units SC .AGGRESSIVE SLIDING PRN; Protocol PRN Reason: AGGRESSIVE SLIDING SCALE Last Admin: 11/17/17 16:18 Dose: 6 unit Lorazepam (Ativan) 0.5 mg SLOW IVP Q6H [facility] Magnesium Oxide (Magnesium Oxide) 400 mg PO BIDPRN PRN PRN Reason: FOR SERUM MAG 1.4 - 2.0 Magnesium Oxide (Magnesium Oxide) 800 mg PO PRN PRN PRN Reason: FOR SERUM MAG < 1.4 Methylprednisolone Sodium Succinate (Solu-Medrol) 20 mg IVP DAILY [facility] Miscellaneous Medication (Phos-Nak) 1 pkt PO TIDPRN PRN PRN Reason: FOR PHOS LEVEL 1.0 - 1.8 Miscellaneous Medication (Phos-Nak) 2 pkt PO TIDPRN PRN PRN Reason: FOR PHOS LEVEL 0.5 - 1.0 Morphine Sulfate (Morphine) 2 mg SLOW IVP Q1H PRN PRN Reason: breakthrough pain/agitation Stop: 12/09/17 02:19 Discontinue Previous Narcotic Pain Medications And Benzodiazepines 1 each FS .ONE RADHA Stop: 12/09/17 02:19 Ccu Electrolyte (Replacement Protocol) 0 each FS PRN PRN PRN Reason: FOR ELECTROLYTE REPLACEMENT Ondansetron HCl (Zofran) 4 mg IVP Q6H PRN PRN Reason: Nausea/Vomiting Pantoprazole Sodium (Protonix) 40 mg IVP 0900 [facility] Last Admin: 11/17/17 09:23 Dose: 40 mg Potassium Chloride (K-Dur) 40 meq PO ASDIR PRN PRN Reason: FOR SERUM K+ 2.5 - 3.5 Potassium Chloride (Klor-Con) 40 meq PER TUBE ASDIR PRN PRN Reason: FOR SERUM K+ 2.5-3.5
[2017-11-17] MEDS ORDERED: Haloperidol Lactate 5 MG/ML VIAL IM SCH (18:00)
--- NOTE | 2017-11-17 18:33 | EKG ---
Test Reason : Blood Pressure : / mmHG Vent. Rate : 083 BPM Atrial Rate : 083 BPM P-R Int : 156 ms QRS Dur : 088 ms QT Int : 380 ms P-R-T Axes : 032 022 024 degrees QTc Int : 446 ms Normal sinus rhythm Normal ECG When compared with ECG of 08-NOV-2017 22:03, (Unconfirmed) Vent. rate has decreased BY [address] no longer depressed in Lateral leads Nonspecific T wave abnormality now evident in Inferior leads Nonspecific T wave abnormality now evident in Anterolateral leads Confirmed by CURTIS AVALOS (2) on 11/17/2017 6:33:10 PM Referred By: LANCE Confirmed By:CURTIS AVALOS
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
[2017-11-17] MEDS: hydrALAZINE 20 MG/ML VIAL SLOW IVP PRN (21:14)
[2017-11-18] MEDS: Piperacillin/Tazobactam 3.375 GM in Sodium Chloride 0.9% 100 ML IVPB SCH ×3 (00:16→11:12)
[2017-11-18] MEDS: Haloperidol Lactate 5 MG/ML VIAL IM SCH ×5 (02:30→23:25)
[2017-11-18 05:37] LABS: Band 2 % (5-11); Hemoglobin 13.4 g/dL (14.0-18.0); Lymphocytes 19 % (21-51); MDiff Complete? YES; Mean Corpuscular HGB CONC 31.6 g/dL (32.0-36.0); Mean Corpuscular Hemoglobin 28.3 pg (27.0-31.0); Mean Corpuscular Volume 89.8 fl (80.0-94.0); Mean Platelet Volume 6.1 fL (7.4-10.4); Monocytes 8 % (0-10); Neutrophil 71 % (42-75); PLT Morphology Comment Appears Adequate; Platelet Count 287 thou/uL (130-400); RBC Distribution Width 14.3 % (11.5-14.5); Red Blood Cell (RBC) Count 4.73 mill/uL (4.70-6.10); White Blood Cell (WBC) Count 12.2 thou/uL (4.8-10.8)
[2017-11-18 05:43] LABS: Anion Gap 16 mmol/L (10-20); BUN (Urea Nitrogen) 33 mg/dL (8.9-20.6); Calc. Creatinine Clearance 221 mL/min (70-130); Calcium 10.1 mg/dL (7.8-10.44); Carbon Dioxide 34 mmol/L (22-29); Chloride 96 mmol/L (98-107); Estimated GFR-MDRD 76; Glucose 164 mg/dL (70-105); Potassium 3.2 mmol/L (3.5-5.1); Sodium 143 mmol/L (136-145)
[2017-11-18] MEDS: Potassium Chloride 40 MEQ in Premix Bag 1 BAG IVPB PRN (09:16)
[2017-11-18] MEDS: Pantoprazole 40 MG VIAL IVP SCH (09:17)
[2017-11-18] MEDS: Furosemide 40 MG/4 ML VIAL SLOW IVP SCH ×2 (09:17→21:23)
[2017-11-18] MEDS: Enoxaparin Sodium 40 MG/0.4 ML SYRINGE SC SCH (09:17)
[2017-11-18] MEDS ORDERED: Lorazepam 2 MG/ML VIAL SLOW IVP PRN (11:42)
--- NOTE | 2017-11-18 11:57 | PRG ---
DATE OF SERVICE: 11/18/2017 Mr. Chau did well overnight. He is more alert today. We will cut his Ativan out, change that to p.r .n. We will continue with routine Haldol. He is cooperative. He is on BiPAP this morning, but appears comfortable. He is not having obstructi ve events on his BiPAP. PHYSICAL EXAMINATION: VITAL SIGNS: Heart rate is 101, respiratory rate 16, oximetry is 91, blood pressure 127/61. Intake and output was negative 3351. LUNGS: His lungs are clear. HEART: Regular rhythm. ABDOMEN: Abdomen is soft. EXTREMITIES: Without asymmetry. 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 LABORATORY: There is no new lab today. IMPRESSION: 1. Respiratory failure, status post extubation. 2. Sleep apnea. 3. Sinus pauses. It is unclear whether or not he is going to need a permanent pacemaker. He has a temporary pacemaker in place at this point in time that I am told can stay in place for 1-2 weeks. We will sit him up and try him off BiPAP today. Critical care time was 30 minutes.
--- NOTE | 2017-11-18 16:47 | PRG ---
DATE OF SERVICE: 11/18/2017 ELECTROPHYSIOLOGY PROGRESS NOTE Leonarda Moore NP-C dictating for Dr. Tony Snow. This is dictated as scribe for Dr. Tony Snow. SUBJECTIVE: Mr. Chau seems to have done well overnight and is more alert with his medication adjustm ent and less sedated today. He does not have any cardiac concerns or complaints today, but discussio n is limited on his BiPAP. OBJECTIVE: VITAL SIGNS: Most recent vital signs, heart rate 112, oxygen saturation 94% on 2 liters, 94% on BiPA P, blood pressure 139/97, respirations 16, temperature 98.8. Intake and output on 11/18/2017 negativ e 3351. NECK: Supple without jugular venous distention. LUNGS: Clear to auscultation bilaterally. HEART: Rate is regularly irregular, tachycardic at times. ABDOMEN: Obese but soft. Bowel sounds are distant. Extremities are warm and dry. DATABASE: Telemetry: The patient is no longer having asystole or substantial pauses over the past 2 4 hours. He is largely maintaining in sinus rhythm with rates between 90 and 115. IMPRESSION AND PLAN: Mr. Chau is an unfortunate 36-year-old gentleman who has had improvement over t he past 24 hours as he has been extubated. He continues to have the temporary pacer in place and has not had any additional pauses or asystole in the past 24 hours. At this point, given his severe leg ulcer and infection, permanent pacemaker placement is not ideal with an active infection. At this time, we will continue to monitor and anticipate removing the temporary pacemaker once his rh ythm is stable. Strong consideration for permanent pacemaker implant once his infection is resolved still a consideration given his syncopal episode of unclear etiology. Thank you for allowing us to participate in the care of this patient. We will continue to follow dur ing his hospitalization.
--- NOTE | 2017-11-18 17:42 | PDOC.PN ---
- Subjective Encounter Start Date: 11/18/17 Encounter Start Time: 10:00 Pt seen for followup re: acute respiratory failure with hypoxia. Extubated yesterday. Not answering questions, unable to complete ROS. - Objective Resuscitation Status: Resuscitation Status FULL:Full Resuscitation MAR Reviewed: Yes Vital Signs & Weight: Vital Signs (12 hours) Temp Pulse Resp Pulse Ox 11/18/17 15:06 94 L 11/18/17 14:55 112 H 14 94 L 11/18/17 11:26 101 H 16 91 L 11/18/17 11:25 106 H 14 91 L 11/18/17 08:00 99 F 113 H 16 11/18/17 07:30 113 H 17 98 11/18/17 07:28 109 H 13 96 Weight Admit Weight 373 lb Weight 328 lb 14.875 oz Most Recent Monitor Data Heart Rate from ECG 112 NIBP 101/71 NIBP BP-Mean 81 Respiration from ECG 18 SpO2 93 I&O: 11/17/17 11/18/17 11/19/17 06:59 06:59 06:59 Intake Total 2147 767.6 941 Output Total 4205 4119 1245 Balance -2058 -3351.4 -304 Result Diagrams: 11/18/17 05:14 11/18/17 05:14 Additional Labs: Accuchecks 11/18/17 11/18/17 11/18/17 15:15 09:22 04:55 POC Glucose 175 H 157 H 159 H 11/17/17 22:23 POC Glucose 146 H EKG Reviewed by me: Yes (Tele: NSR) Phys Exam - Physical Examination Morbid obesity HEENT: moist MMs, sclera anicteric, oral pharynx no lesions, 2+ tonsils Neck: no nodes, supple, full ROM Unable to assess JVD Respiratory: no wheezing, no rales, no rhonchi, clear to auscultation bilateral Cardiovascular: RRR, no rub S1, S2 Gastrointestinal: soft, non-tender, positive bowel sounds distention Musculoskeletal: edema present Neurological: moves all 4 limbs Psychiatric: normal affect Deviation from normal: Unable to assess orientation to person, place or time Deviation from normal: LLE wound, alberto LE lymphedema and stasis dermatitis Dx/Plan (1) Acute respiratory failure with hypoxia Code(s): J96.01 - ACUTE RESPIRATORY FAILURE WITH HYPOXIA Status: Acute Comment: s/p extubation, continue IV antibiotics as below. (2) Sinus pause Code(s): I45.5 - OTHER SPECIFIED HEART BLOCK Status: Acute Comment: s/p temporary pacemaker (3) HLD (hyperlipidemia) Code(s): E78.5 - HYPERLIPIDEMIA, UNSPECIFIED Status: Chronic Comment: Nil acute (4) Lymphedema of both lower extremities Code(s): I89.0 - LYMPHEDEMA, NOT ELSEWHERE CLASSIFIED Status: Chronic Comment: Nil acute (5) Morbid obesity with BMI of 45.0-49.9, adult Code(s): E66.01 - MORBID (SEVERE) OBESITY DUE TO EXCESS CALORIES; Z68.42 - BODY MASS INDEX (BMI) 45.0-49.9, ADULT Status: Chronic Comment: Nil acute (6) DAVID (obstructive sleep apnea) Code(s): G47.33 - OBSTRUCTIVE SLEEP APNEA (ADULT) (PEDIATRIC) Status: Chronic Comment: pt extubated yesterday, pulmonology following (7) Wound of left lower extremity Code(s): S81.802A - UNSPECIFIED OPEN WOUND, LEFT LOWER LEG, INITIAL ENCOUNTER Status: Chronic Comment: Continue IV antibiotics as below - Plan * . Review of Systems - Medications/Allergies Allergies/Adverse Reactions: Allergies Allergy/AdvReac Type Severity Reaction Status Date / Time vancomycin Allergy Verified 11/09/17 05:23 Medications: Current Medications Acetaminophen (Tylenol) 650 mg AL Q4H PRN PRN Reason: Headache/Fever or Pain Acetaminophen (Tylenol) 650 mg PER TUBE Q4H PRN PRN Reason: Headache/Fever or Pain Albuterol/Ipratropium (Duoneb) 3 ml NEB [id number] [facility] Last Admin: 11/18/17 14:55 Dose: 3 ml Atropine Sulfate (Atropine) 1 mg IVP Q4H PRN PRN Reason: BRADYCARDIA < 30 Last Admin: 11/13/17 23:44 Dose: 1 mg Bisacodyl (Dulcolax) 10 mg AL Q24H PRN PRN Reason: Constipation Dextrose/Water (Dextrose 50%) 25 gm SLOW IVP PRN PRN PRN Reason: Hypoglycemia Enoxaparin Sodium (Lovenox) 40 mg SC 0900 [facility] Last Admin: 11/18/17 09:17 Dose: 40 mg Furosemide (Lasix) 40 mg SLOW IVP BID [facility] Last Admin: 11/18/17 09:17 Dose: 40 mg Glucagon (Glucagon) 1 mg IM PRN PRN PRN Reason: Hypoglycemia Haloperidol Lactate (Haldol) 5 mg IM Q6HR [facility] Last Admin: 11/18/17 17:04 Dose: 5 mg Hydralazine HCl (Apresoline) 10 mg SLOW IVP Q4H PRN PRN Reason: FOR SBP >160 Last Admin: 11/17/17 21:14 Dose: 10 mg Potassium Chloride 40 meq/ (Sodium Chloride) 270 mls @ 135 mls/hr IVPB ASDIR PRN PRN Reason: FOR SERUM K+ 2.5 - 3.5 Potassium Chloride 40 meq/ (Device) 100 mls @ 50 mls/hr IVPB ASDIR PRN PRN Reason: FOR SERUM K+ 2.5 - 3.5 Last Admin: 11/18/17 09:16 Dose: 100 mls Magnesium Sulfate 1 gm/ Sodium (Chloride) 102 mls @ 102 mls/hr IV PRN PRN PRN Reason: MAG LEVEL 1.4 - 2.0 Magnesium Sulfate 2 gm/ Device 100 mls @ 100 mls/hr IVPB ASDIR PRN PRN Reason: MAGNESIUM < 1.4 Potassium Phosphate 9 mmol/ (Sodium Chloride) 103 mls @ 25.75 mls/hr IVPB ASDIR PRN PRN Reason: Phosphate 1.0-1.8 Potassium Phosphate 12 mmol/ (Sodium Chloride) 254 mls @ 63.5 mls/hr IV ASDIR PRN PRN Reason: Serum phosphate 0.5-0.9 Potassium Phosphate 15 mmol/ (Sodium Chloride) 255 mls @ 63.75 mls/hr IV ASDIR PRN PRN Reason: Serum Phos < 0.5 Dextrose/Water (D5w) 1,000 mls @ 0 mls/hr IV .Q0M PRN; As Directed PRN Reason: Hypoglycemia Insulin Human Lispro (Humalog) 0 units SC .AGGRESSIVE SLIDING PRN; Protocol PRN Reason: AGGRESSIVE SLIDING SCALE Last Admin: 11/17/17 16:18 Dose: 6 unit Lorazepam (Ativan) 0.5 mg SLOW IVP Q6H PRN PRN Reason: Agitation Magnesium Oxide (Magnesium Oxide) 400 mg PO BIDPRN PRN PRN Reason: FOR SERUM MAG 1.4 - 2.0 Magnesium Oxide (Magnesium Oxide) 800 mg PO PRN PRN PRN Reason: FOR SERUM MAG < 1.4 Miscellaneous Medication (Phos-Nak) 1 pkt PO TIDPRN PRN PRN Reason: FOR PHOS LEVEL 1.0 - 1.8 Miscellaneous Medication (Phos-Nak) 2 pkt PO TIDPRN PRN PRN Reason: FOR PHOS LEVEL 0.5 - 1.0 Morphine Sulfate (Morphine) 2 mg SLOW IVP Q1H PRN PRN Reason: breakthrough pain/agitation Stop: 12/09/17 02:19 Discontinue Previous Narcotic Pain Medications And Benzodiazepines 1 each FS .ONE [facility] Stop: 12/09/17 02:19 Ccu Electrolyte (Replacement Protocol) 0 each FS PRN PRN PRN Reason: FOR ELECTROLYTE REPLACEMENT Ondansetron HCl (Zofran) 4 mg IVP Q6H PRN PRN Reason: Nausea/Vomiting Pantoprazole Sodium (Protonix) 40 mg IVP 0900 [facility] Last Admin: 11/18/17 09:17 Dose: 40 mg Potassium Chloride (K-Dur) 40 meq PO ASDIR PRN PRN Reason: FOR SERUM K+ 2.5 - 3.5 Potassium Chloride (Klor-Con) 40 meq PER TUBE ASDIR PRN PRN Reason: FOR SERUM K+ 2.5-3.5 Sodium Chloride (Flush - Normal Saline) 10 ml IVF Q12HR [facility] Sodium Chloride (Flush - Normal Saline) 10 ml IVF PRN PRN PRN Reason: Saline Flush
[2017-11-18] MEDS ORDERED: Lorazepam 2 MG/ML VIAL SLOW IVP SCH (20:00)
[2017-11-19 05:07] LABS: Eosinophils 2 % (0-10); Hemoglobin 13.6 g/dL (14.0-18.0); Lymphocytes 31 % (21-51); MDiff Complete? YES; Mean Corpuscular HGB CONC 31.2 g/dL (32.0-36.0); Mean Corpuscular Hemoglobin 28.1 pg (27.0-31.0); Mean Corpuscular Volume 90.1 fl (80.0-94.0); Mean Platelet Volume 6.2 fL (7.4-10.4); Monocytes 8 % (0-10); Neutrophil 59 % (42-75); PLT Morphology Comment Appears Adequate; Platelet Count 295 thou/uL (130-400); RBC Distribution Width 14.4 % (11.5-14.5); Red Blood Cell (RBC) Count 4.83 mill/uL (4.70-6.10); White Blood Cell (WBC) Count 9.7 thou/uL (4.8-10.8)
[2017-11-19 05:15] LABS: Anion Gap 12 mmol/L (10-20); BUN (Urea Nitrogen) 40 mg/dL (8.9-20.6); Calc. Creatinine Clearance 218 mL/min (70-130); Carbon Dioxide 37 mmol/L (22-29); Chloride 96 mmol/L (98-107); Estimated GFR-MDRD 85; Glucose 145 mg/dL (70-105); Potassium 3.3 mmol/L (3.5-5.1); Sodium 142 mmol/L (136-145)
[2017-11-19] MEDS: Haloperidol Lactate 5 MG/ML VIAL IM SCH ×3 (06:16→21:25)
[2017-11-19] MEDS: Furosemide 40 MG/4 ML VIAL SLOW IVP SCH (08:12)
[2017-11-19] MEDS: Pantoprazole 40 MG VIAL IVP SCH (08:12)
[2017-11-19] MEDS: Enoxaparin Sodium 40 MG/0.4 ML SYRINGE SC SCH (08:12)
--- NOTE | 2017-11-19 08:40 | RAD ---
SUPINE FRONTAL CHEST RADIOGRAPH: DATE: 11/19/17. COMPARISON: 11/16/17. HISTORY: Ventilated CCU patient. FINDINGS: The endotracheal tube has been removed since the prior examination. There is a stable single-lead transvenous pacing device inserted via a right-sided approach. There i s a right-sided vascular catheter, distal tip overlying the region of the right atrium. Rotation to the right and shallow inspiration limits detailed assessment of the right lung base. Aeration in the left base has improved. Supine imaging limits assessment for pleural fluid and pneumothorax. IMPRESSION: Interval extubation. Improved aeration within both lung bases. POS: [facility]
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
--- NOTE | 2017-11-19 15:33 | PDOC.PN ---
- Subjective Encounter Start Date: 11/19/17 Encounter Start Time: 11:00 Pt seen for acute hypoxic resp failure. Opening eyes to voice but sleeping off quickly. Able to follow some commands. Unable to complete ROS. - Objective Resuscitation Status: Resuscitation Status FULL:Full Resuscitation MAR Reviewed: Yes Vital Signs & Weight: Vital Signs (12 hours) Temp Pulse Resp Pulse Ox 11/19/17 15:00 97.5 F L 11/19/17 13:50 107 H 17 99 11/19/17 11:00 97.8 F 11/19/17 10:02 109 H 16 100 11/19/17 07:26 97.9 F 100 13 11/19/17 07:00 97.9 F 11/19/17 06:58 105 H 18 99 Weight Admit Weight 373 lb Weight 320 lb 15.889 oz Most Recent Monitor Data Heart Rate from ECG 74 NIBP 122/71 NIBP BP-Mean 95 Respiration from ECG 15 SpO2 97 I&O: 11/18/17 11/19/17 11/20/17 06:59 06:59 06:59 Intake Total 767.6 2314 400 Output Total 4119 2770 940 Balance -3351.4 -456 -540 Result Diagrams: 11/19/17 04:03 11/19/17 04:03 Additional Labs: Accuchecks 11/19/17 11/19/17 11/19/17 15:07 08:13 04:04 POC Glucose 147 H 142 H 134 H 11/18/17 22:12 POC Glucose 142 H EKG Reviewed by me: Yes (Tele: NSR) Phys Exam - Physical Examination Morbid obesity HEENT: moist MMs, sclera anicteric, oral pharynx no lesions, 2+ tonsils Neck: no nodes, supple, full ROM Unable to assess JVD Respiratory: no wheezing, no rales, no rhonchi, clear to auscultation bilateral Cardiovascular: RRR, no rub S1, S2 Gastrointestinal: soft, non-tender, positive bowel sounds distended Musculoskeletal: edema present Neurological: moves all 4 limbs Psychiatric: normal affect Deviation from normal: Pt appears to be oriented to person, unable to assess to place or time Deviation from normal: Cody LE lymphedema, LLE wound, Cody LE stasis dermatitis Dx/Plan (1) Acute respiratory failure with hypoxia Code(s): J96.01 - ACUTE RESPIRATORY FAILURE WITH HYPOXIA Status: Acute Comment: s/p extubation, still in CCU, on BiPAP (2) Sinus pause Code(s): I45.5 - OTHER SPECIFIED HEART BLOCK Status: Acute Comment: s/p temporary pacemaker; no recent bradycardia (3) HLD (hyperlipidemia) Code(s): E78.5 - HYPERLIPIDEMIA, UNSPECIFIED Status: Chronic Comment: Nil acute (4) Lymphedema of both lower extremities Code(s): I89.0 - LYMPHEDEMA, NOT ELSEWHERE CLASSIFIED Status: Chronic Comment: stable (5) Morbid obesity with BMI of 45.0-49.9, adult Code(s): E66.01 - MORBID (SEVERE) OBESITY DUE TO EXCESS CALORIES; Z68.42 - BODY MASS INDEX (BMI) 45.0-49.9, ADULT Status: Chronic Comment: Nil acute (6) DAVID (obstructive sleep apnea) Code(s): G47.33 - OBSTRUCTIVE SLEEP APNEA (ADULT) (PEDIATRIC) Status: Chronic Comment: on BiPAP (7) Wound of left lower extremity Code(s): S81.802A - UNSPECIFIED OPEN WOUND, LEFT LOWER LEG, INITIAL ENCOUNTER Status: Chronic Comment: Wound care following - Plan * . Review of Systems - Medications/Allergies Allergies/Adverse Reactions: Allergies Allergy/AdvReac Type Severity Reaction Status Date / Time vancomycin Allergy Verified 11/09/17 05:23 Medications: Current Medications Acetaminophen (Tylenol) 650 mg MI Q4H PRN PRN Reason: Headache/Fever or Pain Acetaminophen (Tylenol) 650 mg PER TUBE Q4H PRN PRN Reason: Headache/Fever or Pain Albuterol/Ipratropium (Duoneb) 3 ml NEB [id number] [facility] Atropine Sulfate (Atropine) 1 mg IVP Q4H PRN PRN Reason: BRADYCARDIA < 30 Last Admin: 11/13/17 23:44 Dose: 1 mg Bisacodyl (Dulcolax) 10 mg MI Q24H PRN PRN Reason: Constipation Dextrose/Water (Dextrose 50%) 25 gm SLOW IVP PRN PRN PRN Reason: Hypoglycemia Enoxaparin Sodium (Lovenox) 40 mg SC 0900 [facility] Last Admin: 11/19/17 08:12 Dose: 40 mg Glucagon (Glucagon) 1 mg IM PRN PRN PRN Reason: Hypoglycemia Haloperidol Lactate (Haldol) 5 mg IM Q8HR [facility] Hydralazine HCl (Apresoline) 10 mg SLOW IVP Q4H PRN PRN Reason: FOR SBP >160 Last Admin: 11/17/17 21:14 Dose: 10 mg Potassium Chloride 40 meq/ (Sodium Chloride) 270 mls @ 135 mls/hr IVPB ASDIR PRN PRN Reason: FOR SERUM K+ 2.5 - 3.5 Potassium Chloride 40 meq/ (Device) 100 mls @ 50 mls/hr IVPB ASDIR PRN PRN Reason: FOR SERUM K+ 2.5 - 3.5 Last Admin: 11/18/17 09:16 Dose: 100 mls Magnesium Sulfate 1 gm/ Sodium (Chloride) 102 mls @ 102 mls/hr IV PRN PRN PRN Reason: MAG LEVEL 1.4 - 2.0 Magnesium Sulfate 2 gm/ Device 100 mls @ 100 mls/hr IVPB ASDIR PRN PRN Reason: MAGNESIUM < 1.4 Potassium Phosphate 9 mmol/ (Sodium Chloride) 103 mls @ 25.75 mls/hr IVPB ASDIR PRN PRN Reason: Phosphate 1.0-1.8 Potassium Phosphate 12 mmol/ (Sodium Chloride) 254 mls @ 63.5 mls/hr IV ASDIR PRN PRN Reason: Serum phosphate 0.5-0.9 Potassium Phosphate 15 mmol/ (Sodium Chloride) 255 mls @ 63.75 mls/hr IV ASDIR PRN PRN Reason: Serum Phos < 0.5 Dextrose/Water (D5w) 1,000 mls @ 0 mls/hr IV .Q0M PRN; As Directed PRN Reason: Hypoglycemia Insulin Human Lispro (Humalog) 0 units SC .AGGRESSIVE SLIDING PRN; Protocol PRN Reason: AGGRESSIVE SLIDING SCALE Last Admin: 11/17/17 16:18 Dose: 6 unit Lorazepam (Ativan) 0.5 mg SLOW IVP Q6H PRN PRN Reason: Agitation Last Admin: 11/18/17 22:56 Dose: 0.5 mg Magnesium Oxide (Magnesium Oxide) 400 mg PO BIDPRN PRN PRN Reason: FOR SERUM MAG 1.4 - 2.0 Magnesium Oxide (Magnesium Oxide) 800 mg PO PRN PRN PRN Reason: FOR SERUM MAG < 1.4 Miscellaneous Medication (Phos-Nak) 1 pkt PO TIDPRN PRN PRN Reason: FOR PHOS LEVEL 1.0 - 1.8 Miscellaneous Medication (Phos-Nak) 2 pkt PO TIDPRN PRN PRN Reason: FOR PHOS LEVEL 0.5 - 1.0 Discontinue Previous Narcotic Pain Medications And Benzodiazepines 1 each FS .ONE [facility] Stop: 12/09/17 02:19 Ccu Electrolyte (Replacement Protocol) 0 each FS PRN PRN PRN Reason: FOR ELECTROLYTE REPLACEMENT Ondansetron HCl (Zofran) 4 mg IVP Q6H PRN PRN Reason: Nausea/Vomiting Pantoprazole Sodium (Protonix) 40 mg IVP 0900 [facility] Last Admin: 11/19/17 08:12 Dose: 40 mg Potassium Chloride (K-Dur) 40 meq PO ASDIR PRN PRN Reason: FOR SERUM K+ 2.5 - 3.5 Potassium Chloride (Klor-Con) 40 meq PER TUBE ASDIR PRN PRN Reason: FOR SERUM K+ 2.5-3.5 Last Admin: 11/19/17 06:16 Dose: 40 meq Sodium Chloride (Flush - Normal Saline) 10 ml IVF Q12HR [facility] Last Admin: 11/19/17 08:13 Dose: 10 ml Sodium Chloride (Flush - Normal Saline) 10 ml IVF PRN PRN PRN Reason: Saline Flush Last Admin: 11/19/17 08:13 Dose: 10 ml
--- NOTE | 2017-11-19 22:02 | PRG ---
DATE OF SERVICE: 11/19/2017 SUBJECTIVE: Mr. Chau is still poorly responsive, but off BiPAP mask. He remains overnight. N o further pacing is documented. OBJECTIVE DATA: VITAL SIGNS: Blood pressure 103/69, heart rate 99, respirations 15, temperature 97.9 degrees Fahrenh eit. GENERAL: This is a morbidly obese man in no apparent distress. NECK: Supple. Jugular veins are distended. CHEST: Coarse crackles. CARDIAC: Right subclavian temporary pacemaker wire with externalized pacemaker in place. ABDOMEN: Benign. Bowel sounds positive. EXTREMITIES: Lower extremity with left lower extremity foot ulcer. DATABASE: Telemetry strips reveal sinus rhythm, not much ventricular pacing. ASSESSMENT AND PLAN: Mr. Chau is an unfortunate 36-year-old man with history of diabetes, multi-subs tance abuse, morbid obesity, lower extremity ulcer who had episodic bradycardia while intubated, now bradyarrhythmia is improved, but he still has an externalized pacemaker in place. Our plan is to con tinue monitoring, consider reducing the ventricular pacing lead to see if further need for pacing is present. Eventually, once recovery occurred and no further bradyarrhythmia seen, so I suspect it may be a case. We might remove the temporary pacemaker wire. significant pacing requirement pres ent after stabilization of his infectious condition, consider permanent pacing. We will follow with you.
[2017-11-20 05:06] LABS: Anion Gap 11 mmol/L (10-20); BUN (Urea Nitrogen) 38 mg/dL (8.9-20.6); Calc. Creatinine Clearance 256 mL/min (70-130); Calcium 9.7 mg/dL (7.8-10.44); Carbon Dioxide 36 mmol/L (22-29); Chloride 96 mmol/L (98-107); Estimated GFR-MDRD Greater than 90; Glucose 131 mg/dL (70-105); Potassium 3.5 mmol/L (3.5-5.1); Sodium 139 mmol/L (136-145)
[2017-11-20 05:37] LABS: Eosinophils 2 % (0-10); Hemoglobin 12.8 g/dL (14.0-18.0); Lymphocytes 33 % (21-51); MDiff Complete? YES; Mean Corpuscular Hemoglobin 28.8 pg (27.0-31.0); Mean Corpuscular Volume 89.9 fl (80.0-94.0); Mean Platelet Volume 6.3 fL (7.4-10.4); Monocytes 5 % (0-10); Neutrophil 60 % (42-75); Platelet Count 250 thou/uL (130-400); RBC Distribution Width 14.2 % (11.5-14.5); Red Blood Cell (RBC) Count 4.44 mill/uL (4.70-6.10); White Blood Cell (WBC) Count 9.9 thou/uL (4.8-10.8)
[2017-11-20] MEDS: Haloperidol Lactate 5 MG/ML VIAL IM SCH ×2 (06:35→13:04)
[2017-11-20] MEDS: Enoxaparin Sodium 40 MG/0.4 ML SYRINGE SC SCH (09:13)
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
--- NOTE | 2017-11-20 09:54 | RAD ---
AP CHEST: Indication: Daily CCU examination. Comparison: 11-19-17 IMPRESSION: Limited exam. Costophrenic angles are excluded. There are low lung volumes accentuating the pulmonary vasculature. There is bibasilar atelectasis. There is a stable right sided PICC line. There is a gen erator pack overlying the right chest wall. No definite pneumothorax is evident. POS: [facility]
[2017-11-20] MEDS: HumaLOG 300 UNITS/3 ML VIAL SC PRN (11:14)
--- NOTE | 2017-11-20 16:05 | PDOC.PN ---
- Subjective Encounter Start Date: 11/20/17 Encounter Start Time: 09:20 Pt seen for followup re: acute hypoxic respiratory failure. Awake, alert, answering questions, denies chest pain, shortness of breath, fevers or chills. - Objective Resuscitation Status: Resuscitation Status FULL:Full Resuscitation MAR Reviewed: Yes Vital Signs & Weight: Vital Signs (12 hours) Temp Pulse Pulse Pulse Resp BP BP 11/20/17 12:00 78 12 11/20/17 10:05 103 H 108 H 131/87 138/90 11/20/17 08:00 98.8 F 92 14 11/20/17 06:21 92 14 Pulse Ox 11/20/17 12:00 96 11/20/17 10:05 11/20/17 08:00 11/20/17 06:21 100 Weight Admit Weight 373 lb Weight 322 lb 8.58 oz Most Recent Monitor Data Heart Rate from ECG 78 NIBP 147/67 NIBP BP-Mean 97 Respiration from ECG 21 SpO2 97 I&O: 11/19/17 11/20/17 11/21/17 06:59 06:59 06:59 Intake Total 2314 2033 600 Output Total 2770 2175 690 Balance -456 -142 -90 Result Diagrams: 11/20/17 04:21 11/20/17 04:21 Additional Labs: Accuchecks 11/20/17 11/20/17 11/19/17 11:08 08:40 21:25 POC Glucose 154 H 136 H 134 H EKG Reviewed by me: Yes (Tele: NSR) Phys Exam - Physical Examination Morbid obesity HEENT: moist MMs, sclera anicteric, oral pharynx no lesions, 2+ tonsils Neck: no nodes, no JVD, supple, full ROM Respiratory: no wheezing, no rales, no rhonchi, clear to auscultation bilateral Cardiovascular: RRR, no rub S1, S2 Gastrointestinal: soft, non-tender, positive bowel sounds distention Musculoskeletal: edema present Neurological: moves all 4 limbs Psychiatric: normal affect Deviation from normal: Cody LE stasis dermatitis and lymphedema, LLW wound Dx/Plan (1) Acute respiratory failure with hypoxia Code(s): J96.01 - ACUTE RESPIRATORY FAILURE WITH HYPOXIA Status: Acute Comment: Pt did not use BiPAP last night. Improving (2) Sinus pause Code(s): I45.5 - OTHER SPECIFIED HEART BLOCK Status: Acute Comment: pt is in normal sinus rhtyhm (3) HLD (hyperlipidemia) Code(s): E78.5 - HYPERLIPIDEMIA, UNSPECIFIED Status: Chronic Comment: Nil acute (4) Lymphedema of both lower extremities Code(s): I89.0 - LYMPHEDEMA, NOT ELSEWHERE CLASSIFIED Status: Chronic Comment: stable (5) Morbid obesity with BMI of 45.0-49.9, adult Code(s): E66.01 - MORBID (SEVERE) OBESITY DUE TO EXCESS CALORIES; Z68.42 - BODY MASS INDEX (BMI) 45.0-49.9, ADULT Status: Chronic Comment: Nil acute (6) DAVID (obstructive sleep apnea) Code(s): G47.33 - OBSTRUCTIVE SLEEP APNEA (ADULT) (PEDIATRIC) Status: Chronic Comment: pt did not use BiPAP last night (7) Wound of left lower extremity Code(s): S81.802A - UNSPECIFIED OPEN WOUND, LEFT LOWER LEG, INITIAL ENCOUNTER Status: Chronic Comment: Wound care following - Plan * . Review of Systems - Review of Systems Constitutional: negative: fever, chills, sweats, weakness, malaise Respiratory: SOB with Excertion. negative: Cough, Shortness of Breath, Pleuritic Pain, Wheezing Cardiovascular: negative: chest pain, palpitations, orthopnea, paroxysmal nocturnal dyspnea, edema, light headedness Gastrointestinal: negative: Nausea, Vomiting, Abdominal Pain, Diarrhea, Constipation, Melena, Hematochezia Genitourinary: negative: Dysuria, Frequency, Incontinence, Hematuria, Retention - Medications/Allergies Allergies/Adverse Reactions: Allergies Allergy/AdvReac Type Severity Reaction Status Date / Time vancomycin Allergy Verified 11/09/17 05:23 Medications: Current Medications Acetaminophen (Tylenol) 650 mg FL Q4H PRN PRN Reason: Headache/Fever or Pain Acetaminophen (Tylenol) 650 mg PER TUBE Q4H PRN PRN Reason: Headache/Fever or Pain Albuterol/Ipratropium (Duoneb) 3 ml NEB [id number] RADHA Last Admin: 11/20/17 12:00 Dose: 3 ml Atropine Sulfate (Atropine) 1 mg IVP Q4H PRN PRN Reason: BRADYCARDIA < 30 Last Admin: 11/13/17 23:44 Dose: 1 mg Bisacodyl (Dulcolax) 10 mg FL Q24H PRN PRN Reason: Constipation Dextrose/Water (Dextrose 50%) 25 gm SLOW IVP PRN PRN PRN Reason: Hypoglycemia Enoxaparin Sodium (Lovenox) 40 mg SC 0900 RADHA Last Admin: 11/20/17 09:13 Dose: 40 mg Glucagon (Glucagon) 1 mg IM PRN PRN PRN Reason: Hypoglycemia Haloperidol (Haldol) 10 mg PO BID RADHA Hydralazine HCl (Apresoline) 10 mg SLOW IVP Q4H PRN PRN Reason: FOR SBP >160 Last Admin: 11/17/17 21:14 Dose: 10 mg Potassium Chloride 40 meq/ (Sodium Chloride) 270 mls @ 135 mls/hr IVPB ASDIR PRN PRN Reason: FOR SERUM K+ 2.5 - 3.5 Potassium Chloride 40 meq/ (Device) 100 mls @ 50 mls/hr IVPB ASDIR PRN PRN Reason: FOR SERUM K+ 2.5 - 3.5 Last Admin: 11/18/17 09:16 Dose: 100 mls Magnesium Sulfate 1 gm/ Sodium (Chloride) 102 mls @ 102 mls/hr IV PRN PRN PRN Reason: MAG LEVEL 1.4 - 2.0 Magnesium Sulfate 2 gm/ Device 100 mls @ 100 mls/hr IVPB ASDIR PRN PRN Reason: MAGNESIUM < 1.4 Potassium Phosphate 9 mmol/ (Sodium Chloride) 103 mls @ 25.75 mls/hr IVPB ASDIR PRN PRN Reason: Phosphate 1.0-1.8 Potassium Phosphate 12 mmol/ (Sodium Chloride) 254 mls @ 63.5 mls/hr IV ASDIR PRN PRN Reason: Serum phosphate 0.5-0.9 Potassium Phosphate 15 mmol/ (Sodium Chloride) 255 mls @ 63.75 mls/hr IV ASDIR PRN PRN Reason: Serum Phos < 0.5 Dextrose/Water (D5w) 1,000 mls @ 0 mls/hr IV .Q0M PRN; As Directed PRN Reason: Hypoglycemia Insulin Human Lispro (Humalog) 0 units SC .AGGRESSIVE SLIDING PRN; Protocol PRN Reason: AGGRESSIVE SLIDING SCALE Last Admin: 11/20/17 11:14 Dose: 3 unit Lorazepam (Ativan) 0.5 mg SLOW IVP Q6H PRN PRN Reason: Agitation Last Admin: 11/18/17 22:56 Dose: 0.5 mg Magnesium Oxide (Magnesium Oxide) 400 mg PO BIDPRN PRN PRN Reason: FOR SERUM MAG 1.4 - 2.0 Magnesium Oxide (Magnesium Oxide) 800 mg PO PRN PRN PRN Reason: FOR SERUM MAG < 1.4 Miscellaneous Medication (Phos-Nak) 1 pkt PO TIDPRN PRN PRN Reason: FOR PHOS LEVEL 1.0 - 1.8 Miscellaneous Medication (Phos-Nak) 2 pkt PO TIDPRN PRN PRN Reason: FOR PHOS LEVEL 0.5 - 1.0 Discontinue Previous Narcotic Pain Medications And Benzodiazepines 1 each FS .ONE [facility] Stop: 12/09/17 02:19 Ccu Electrolyte (Replacement Protocol) 0 each FS PRN PRN PRN Reason: FOR ELECTROLYTE REPLACEMENT Ondansetron HCl (Zofran) 4 mg IVP Q6H PRN PRN Reason: Nausea/Vomiting Pantoprazole Sodium (Protonix) 40 mg PO 0900 [facility] Last Admin: 11/20/17 09:14 Dose: 40 mg Potassium Chloride (K-Dur) 40 meq PO ASDIR PRN PRN Reason: FOR SERUM K+ 2.5 - 3.5 Potassium Chloride (Klor-Con) 40 meq PER TUBE ASDIR PRN PRN Reason: FOR SERUM K+ 2.5-3.5 Last Admin: 11/20/17 11:41 Dose: 40 meq Sodium Chloride (Flush - Normal Saline) 10 ml IVF Q12HR RADHA Last Admin: 11/20/17 09:13 Dose: 10 ml Sodium Chloride (Flush - Normal Saline) 10 ml IVF PRN PRN PRN Reason: Saline Flush Last Admin: 11/19/17 08:13 Dose: 10 ml
--- NOTE | 2017-11-20 16:26 | PRG ---
DATE OF SERVICE: 10/31/2017 SUBJECTIVE: Mr. Chau absolutely refuses to wear CPAP. OBJECTIVE: VITAL SIGNS: His blood pressure 147/88, heart rates in the 90s, respiratory rate in the 17. He has transient episodes of bradycardia when he obstructs. LUNGS: Clear. HEART: Regular rhythm. ABDOMEN: Soft. LABORATORY DATA: White count 9.9, hemoglobin 12.8, platelets 250,000. Sodium 139, potassium 3.5, ch loride 96, bicarbonate 36, BUN 38, creatinine 0.8, glucose 131. Intake and output was negative 142. IMPRESSION: 1. Sleep apnea. 2. Underlying mental illness, ? schizophrenia that makes it very difficult to care for him. I urvashi taylor cannot recommend putting a tracheostomy in him to treat his untreated sleep apnea given his appa rent inability to follow any directions or comply with medical therapy. His history of noncompliance with followup or just day-to-day living activities that are necessary is a strong argument not to ev en attempt to place a tracheostomy in him. I am sure he will pull it out just like he pulls off his BiPAP and CPAP mask. Long-term placement of a pacer is fraught with potential future complications given the skin tears in his lower extremities. At this time, it appears that all of his bradycardic events related to obstructive sleep apnea, altho ugh when he was intubated. He was having some episodes as well. Cryptologist feels some of this could have been vagal mediated. In any event, we will continue to support him. I really am not sure what we are going to be able to do from a placement standpoint. I will convert his Haldol to p.o.
[2017-11-20] MEDS: Haloperidol 5 MG TAB PO SCH (20:26)
[2017-11-21 06:07] LABS: Anion Gap 11 mmol/L (10-20); BUN (Urea Nitrogen) 26 mg/dL (8.9-20.6); Calc. Creatinine Clearance 270 mL/min (70-130); Calcium 9.8 mg/dL (7.8-10.44); Carbon Dioxide 32 mmol/L (22-29); Chloride 98 mmol/L (98-107); Estimated GFR-MDRD Greater than 90; Glucose 131 mg/dL (70-105); Sodium 137 mmol/L (136-145)
[2017-11-21 07:09] LABS: Mean Corpuscular HGB CONC 32.7 g/dL (32.0-36.0); Mean Corpuscular Hemoglobin 29.1 pg (27.0-31.0); Mean Corpuscular Volume 88.9 fl (80.0-94.0); Mean Platelet Volume 6.6 fL (7.4-10.4); Platelet Count 209 thou/uL (130-400); RBC Distribution Width 14.2 % (11.5-14.5); Red Blood Cell (RBC) Count 4.48 mill/uL (4.70-6.10); White Blood Cell (WBC) Count 9.2 thou/uL (4.8-10.8)
[2017-11-21 07:51] LABS: Band 4 % (5-11); Eosinophils 3 % (0-10); Lymphocytes 19 % (21-51); MDiff Complete? YES; Monocytes 5 % (0-10); Neutrophil 68 % (42-75); RBC Morphology Normal
--- NOTE | 2017-11-21 08:28 | RAD ---
CHEST 1 VIEW: HISTORY: Ventilated patient. COMPARISON: Chest radiograph prior day. FINDINGS: Lungs are hypoinflated with vascular crowding. There is also cephalization of the pulmonary vasculat ure. Cardiac device is in place incompletely evaluated. IMPRESSION: Severe lung hypoinflation from vascular crowding. POS: [facility]
[2017-11-21] MEDS: Enoxaparin Sodium 40 MG/0.4 ML SYRINGE SC SCH (09:50)
[2017-11-21] MEDS: Haloperidol 5 MG TAB PO SCH (09:51)
--- NOTE | 2017-11-21 13:28 | PDOC.PN ---
- Subjective Encounter Start Date: 11/21/17 Encounter Start Time: 11:40 Pt seen for followup re: acute respiratory failure with hypoxia. Lethargic, not answering questions, unable to complete ROS. - Objective Resuscitation Status: Resuscitation Status FULL:Full Resuscitation MAR Reviewed: Yes Vital Signs & Weight: Vital Signs (12 hours) Temp Pulse Pulse Resp BP Pulse Ox Pulse Ox 11/21/17 12:37 101 H 15 99 11/21/17 12:00 98.4 F 11/21/17 11:09 112 H 118/86 99 11/21/17 08:00 99.5 F 11/21/17 07:50 99.7 F H 110 H 21 H 98 11/21/17 07:35 99 11/21/17 07:32 100 21 H 98 11/21/17 04:00 98.6 F Weight Admit Weight 373 lb Weight 325 lb 9.964 oz Most Recent Monitor Data Heart Rate from ECG 73 NIBP 151/98 NIBP BP-Mean 121 Respiration from ECG 16 SpO2 93 I&O: 11/20/17 11/21/17 11/22/17 06:59 06:59 06:59 Intake Total 2033 1114 472 Output Total 2175 1640 448 Balance -142 -526 24 Result Diagrams: 11/21/17 05:33 11/21/17 05:33 Additional Labs: Accuchecks 11/21/17 11/21/17 11/20/17 12:09 05:33 20:32 POC Glucose 157 H 125 H 127 H 11/20/17 16:23 POC Glucose 113 H EKG Reviewed by me: Yes (Tele: NSR) Phys Exam - Physical Examination Morbid obesity HEENT: moist MMs Neck: supple Respiratory: clear to auscultation bilateral Cardiovascular: RRR Neurological: moves all 4 limbs Psychiatric: normal affect Dx/Plan (1) Acute respiratory failure with hypoxia Code(s): J96.01 - ACUTE RESPIRATORY FAILURE WITH HYPOXIA Status: Acute Comment: Pt refused BiPAP. Lethargic, not answering questions. (2) Sinus pause Code(s): I45.5 - OTHER SPECIFIED HEART BLOCK Status: Acute Comment: pt is in normal sinus rhtyhm (3) HLD (hyperlipidemia) Code(s): E78.5 - HYPERLIPIDEMIA, UNSPECIFIED Status: Chronic Comment: Nil acute (4) Lymphedema of both lower extremities Code(s): I89.0 - LYMPHEDEMA, NOT ELSEWHERE CLASSIFIED Status: Chronic Comment: stable (5) Morbid obesity with BMI of 45.0-49.9, adult Code(s): E66.01 - MORBID (SEVERE) OBESITY DUE TO EXCESS CALORIES; Z68.42 - BODY MASS INDEX (BMI) 45.0-49.9, ADULT Status: Chronic Comment: Nil acute (6) DAVID (obstructive sleep apnea) Code(s): G47.33 - OBSTRUCTIVE SLEEP APNEA (ADULT) (PEDIATRIC) Status: Chronic Comment: pt did not use BiPAP last night (7) Wound of left lower extremity Code(s): S81.802A - UNSPECIFIED OPEN WOUND, LEFT LOWER LEG, INITIAL ENCOUNTER Status: Chronic Comment: Wound care following - Plan * . Review of Systems - Medications/Allergies Allergies/Adverse Reactions: Allergies Allergy/AdvReac Type Severity Reaction Status Date / Time vancomycin Allergy Verified 11/09/17 05:23 Medications: Current Medications Acetaminophen (Tylenol) 650 mg W[place] Q4H PRN PRN Reason: Headache/Fever or Pain Acetaminophen (Tylenol) 650 mg PER TUBE Q4H PRN PRN Reason: Headache/Fever or Pain Albuterol/Ipratropium (Duoneb) 3 ml NEB [id number] RADHA Last Admin: 11/21/17 12:37 Dose: 3 ml Atropine Sulfate (Atropine) 1 mg IVP Q4H PRN PRN Reason: BRADYCARDIA < 30 Last Admin: 11/13/17 23:44 Dose: 1 mg Bisacodyl (Dulcolax) 10 mg W[place] Q24H PRN PRN Reason: Constipation Dextrose/Water (Dextrose 50%) 25 gm SLOW IVP PRN PRN PRN Reason: Hypoglycemia Enoxaparin Sodium (Lovenox) 40 mg SC 0900 [facility] Last Admin: 11/21/17 09:50 Dose: 40 mg Glucagon (Glucagon) 1 mg IM PRN PRN PRN Reason: Hypoglycemia Haloperidol (Haldol) 10 mg PO BIDPRN PRN PRN Reason: Agitation Hydralazine HCl (Apresoline) 10 mg SLOW IVP Q4H PRN PRN Reason: FOR SBP >160 Last Admin: 11/17/17 21:14 Dose: 10 mg Potassium Chloride 40 meq/ (Sodium Chloride) 270 mls @ 135 mls/hr IVPB ASDIR PRN PRN Reason: FOR SERUM K+ 2.5 - 3.5 Potassium Chloride 40 meq/ (Device) 100 mls @ 50 mls/hr IVPB ASDIR PRN PRN Reason: FOR SERUM K+ 2.5 - 3.5 Last Admin: 11/18/17 09:16 Dose: 100 mls Magnesium Sulfate 1 gm/ Sodium (Chloride) 102 mls @ 102 mls/hr IV PRN PRN PRN Reason: MAG LEVEL 1.4 - 2.0 Magnesium Sulfate 2 gm/ Device 100 mls @ 100 mls/hr IVPB ASDIR PRN PRN Reason: MAGNESIUM < 1.4 Potassium Phosphate 9 mmol/ (Sodium Chloride) 103 mls @ 25.75 mls/hr IVPB ASDIR PRN PRN Reason: Phosphate 1.0-1.8 Potassium Phosphate 12 mmol/ (Sodium Chloride) 254 mls @ 63.5 mls/hr IV ASDIR PRN PRN Reason: Serum phosphate 0.5-0.9 Potassium Phosphate 15 mmol/ (Sodium Chloride) 255 mls @ 63.75 mls/hr IV ASDIR PRN PRN Reason: Serum Phos < 0.5 Dextrose/Water (D5w) 1,000 mls @ 0 mls/hr IV .Q0M PRN; As Directed PRN Reason: Hypoglycemia Insulin Human Lispro (Humalog) 0 units SC .AGGRESSIVE SLIDING PRN; Protocol PRN Reason: AGGRESSIVE SLIDING SCALE Last Admin: 11/20/17 11:14 Dose: 3 unit Lorazepam (Ativan) 0.5 mg SLOW IVP Q6H PRN PRN Reason: Agitation Last Admin: 11/18/17 22:56 Dose: 0.5 mg Magnesium Oxide (Magnesium Oxide) 400 mg PO BIDPRN PRN PRN Reason: FOR SERUM MAG 1.4 - 2.0 Magnesium Oxide (Magnesium Oxide) 800 mg PO PRN PRN PRN Reason: FOR SERUM MAG < 1.4 Miscellaneous Medication (Phos-Nak) 1 pkt PO TIDPRN PRN PRN Reason: FOR PHOS LEVEL 1.0 - 1.8 Miscellaneous Medication (Phos-Nak) 2 pkt PO TIDPRN PRN PRN Reason: FOR PHOS LEVEL 0.5 - 1.0 Discontinue Previous Narcotic Pain Medications And Benzodiazepines 1 each FS .ONE RADHA Stop: 12/09/17 02:19 Ccu Electrolyte (Replacement Protocol) 0 each FS PRN PRN PRN Reason: FOR ELECTROLYTE REPLACEMENT Ondansetron HCl (Zofran) 4 mg IVP Q6H PRN PRN Reason: Nausea/Vomiting Pantoprazole Sodium (Protonix) 40 mg PO 0900 [facility] Last Admin: 11/21/17 09:51 Dose: 40 mg Potassium Chloride (K-Dur) 40 meq PO ASDIR PRN PRN Reason: FOR SERUM K+ 2.5 - 3.5 Potassium Chloride (Klor-Con) 40 meq PER TUBE ASDIR PRN PRN Reason: FOR SERUM K+ 2.5-3.5 Last Admin: 11/20/17 11:41 Dose: 40 meq Sodium Chloride (Flush - Normal Saline) 10 ml IVF Q12HR [facility] Last Admin: 11/21/17 09:51 Dose: 10 ml Sodium Chloride (Flush - Normal Saline) 10 ml IVF PRN PRN PRN Reason: Saline Flush Last Admin: 11/19/17 08:13 Dose: 10 ml
[2017-11-21 13:44] VITALS: BMI 40.6
--- NOTE | 2017-11-21 14:54 | PRG ---
DATE OF SERVICE: 11/21/2017 SUBJECTIVE: Mr. Chau continues to be noncompliant. He is getting less Ativan. His true color perso nality I believe is coming out. I actually discussed all of the events of today with his mother by manuel omer and she admitted that this was his personality and has been his personality since he was in high school. Her words were "it is always somebody else's fault" for his behavior. That is the interaction I had with him today and it actually became quite confrontational, because he is being verbally abusive towards the nurses and not wearing CPAP. It has been explained to him kaleb t he will without treatment of his sleep apnea, but he refuses to wear the mask. One last option is to try nasal pillows, although we will do about getting CPAP for him once he is ou t of here since he is unemployed and homeless. I think restraining him for CPAP is a bad idea. He is not clinically in respiratory failure and quit e simply what we are seeing is what something that he has been living with for quite some time. It a ppears all of his bradycardic events now are related to obstructive sleep apnea. Treatment of sleep apnea is the preferred treatment for the bradycardia, not placing a permanent pace maker. He is extremely high risk for a pacemaker infection given the chronic breakdown in his legs a nd his failure to see a doctor with any frequency and unlikely ability to see a physician with any fr equency in the future. His mother has informed me that he has always been noncompliant with regards to health care issues. I have explained to him that he will without treatment of his sleep apnea. His answer was "let m e then". We will begin working on placement at discharge. At her last admission, there are very few options for him. His mother said she can take him in and the sister said she can take him in (this is a mother that adopted him). I totally understand her inability or lack of desire to live with this behavior. I cannot really clearly say now that I can talk to him that he is schizophrenic. I have not seen any thing that leads me to believe he is delusional, but he clearly is very dysfunctional. I plan to change his Haldol to p.r.n. I will try the nasal pillows, but if he is noncompliant with that, I absolutely cannot recommend that he have a tracheostomy to treat his sleep apnea. There is no way he would follow up with this or ca re for it appropriately and I have explained to his mother. I do not feel it appropriate management of his sleep apnea. We will continue to follow him as long as he is in the hospital.
--- NOTE | 2017-11-21 14:57 | PDOC.CTH ---
<Leonarda Moore - Last Filed: 11/21/17 14:54> Cardiology Progress Note - Subjective EP progress note: Patient seen and evaluated. He is extubated and alert. Minimally verbal but does nod/shake head seemingly appropriately. No new cardiac concerns or complaints. denies any dizziness or passing out. ROS difficult to obtain. - Objective Vital Signs Temp Pulse Pulse Resp BP Pulse Ox Pulse Ox 11/21/17 12:37 101 H 15 99 11/21/17 12:00 98.4 F 11/21/17 11:09 112 H 118/86 99 11/21/17 08:00 99.5 F 11/21/17 07:50 99.7 F H 110 H 21 H 98 11/21/17 07:35 99 11/21/17 07:32 100 21 H 98 11/21/17 04:00 98.6 F Admit Weight 373 lb Weight 325 lb 9.964 oz 11/20/17 11/21/17 11/22/17 06:59 06:59 06:59 Intake Total 2033 1114 472 Output Total 2175 1640 448 Balance -142 -526 24 - Physical Examination General/Neuro: NAD, other: (alert, oriented to person and place) Neck: no JVD present Heart: RRR Abdomen: NT/ND, soft Extremities: + edema B - Telemetry Telemetry Rhythm: NSR - Labs Result Diagrams: 11/21/17 05:33 11/21/17 05:33 Troponin/CKMB CK-MB (CK-2) 0.9 ng/mL (0-6.6) 11/08/17 17:45 Troponin I 0.016 ng/mL (< 0.028) 11/13/17 02:42 - Assessment/Plan 1. Hypervagotonia with extreme sleep apnea. + pickwickian syndrome. History of asystole in the setting of acute respiratory failure, AMS, intubated with possibly obstructed airflow. 2. Asymptomatic bradycardia, intermittent. TPM placed last week. LRL decreased to 30 yesterday. Only 2 episodes (~ 6 seconds long) of paced beats since that time with concurrent desaturation on monitor. No clear indication for PPM. Recommend improved pulmonary status and compliance with CPAP. Also, he is a poor candidate for PPM given his current infections. Likely remove TPM today once discussed with Dr. Cabrales. <Tony Snow - Last Filed: 11/21/17 16:18> Cardiology Progress Note - Objective Vital Signs Temp Pulse Pulse Resp BP Pulse Ox Pulse Ox 11/21/17 12:37 101 H 15 99 11/21/17 12:00 98.4 F 11/21/17 11:09 112 H 118/86 99 11/21/17 08:00 99.5 F 11/21/17 07:50 99.7 F H 110 H 21 H 98 11/21/17 07:35 99 11/21/17 07:32 100 21 H 98 Admit Weight 373 lb Weight 325 lb 9.964 oz 11/20/17 11/21/17 11/22/17 06:59 06:59 06:59 Intake Total 5442 6247 522 Output Total 7364 1223 681 Balance -142 -526 -211 - Labs Result Diagrams: 11/21/17 05:33 11/21/17 05:33 Troponin/CKMB CK-MB (CK-2) 0.9 ng/mL (0-6.6) 11/08/17 17:45 Troponin I 0.016 ng/mL (< 0.028) 11/13/17 02:42 Attending Addendum - Attending Addendum Date/Time: 11/21/17 1617 I personally evaluated the patient and discussed the management with Ms Moore. I agree with the History, Examination, Assessment and Plan documented above with any addition or exceptions noted below. Could not reach dr Cabrales, For now will keep remporary pacer till necessary from pulmonary standpoint. Possible removal next week.
[2017-11-21] MEDS: Haloperidol 5 MG TAB PO PRN (21:25)
[2017-11-22] MEDS: Enoxaparin Sodium 40 MG/0.4 ML SYRINGE SC SCH (08:55)
[2017-11-22] MEDS: Acetaminophen 325 MG TAB PER TUBE PRN ×2 (09:03→20:42)
--- NOTE | 2017-11-22 13:31 | PRG ---
DATE OF SERVICE: 11/22/2017 SERVICE: Pulmonary Medicine. INTERVAL HISTORY: There has been no significant change to his condition. He was out of bed yesterda y. He was found on the floor, but did not strike his head. He is now complaining of some left foot pain. Apparently, he has been complaining of multiple abnormalities throughout his hospital stay. PHYSICAL EXAMINATION: VITAL SIGNS: Afebrile, pulse 105, blood pressure 151/128, respirations 16, saturation 100% on 3 lite rs nasal cannula. GENERAL: The patient is awake, alert, no apparent distress. LUNGS: Decent air entry. There is no prolonged expiratory phase, wheezing, rhonchi, or crackles pre sent. HEART: Normal rate and regular. ABDOMEN: Soft, nontender, and nondistended. Bowel sounds are positive. MUSCULOSKELETAL: No cyanosis or clubbing. There is no pitting in the bilateral lower extremities. NEUROLOGIC: Grossly nonfocal. The left foot has no deformity. GENITOURINARY: No Anderson. NEUROLOGIC: Grossly nonfocal. LABORATORY DATA: WBC 9.2, hemoglobin 13.0 and platelets 209,000. Basic metabolic profile is essenti ally unremarkable. Blood cultures x2 are unremarkable. Leg culture is growing multiple organisms. ASSESSMENT: 1. Obesity hypoventilation syndrome. 2. Obstructive sleep apnea, severe. 3. Bradyarrhythmias secondary to low oxygen level at night. PLAN: The patient remains noncompliant with his noninvasive therapy. We will continue to make encou ragements there. I will x-ray his left foot because he is complaining of some discomfort there. Pul monary or Critical Care will continue to follow while the patient remains in this location.
--- NOTE | 2017-11-22 13:59 | PDOC.PN ---
- Subjective Encounter Start Date: 11/22/17 Encounter Start Time: 14:00 Subjective: Patient complaining of left foot pain on the top, very sensitive to touch. -: More alert today. No other complaints. - Objective Resuscitation Status: Resuscitation Status FULL:Full Resuscitation MAR Reviewed: Yes Vital Signs & Weight: Vital Signs (12 hours) Temp Pulse Resp Pulse Ox 11/22/17 11:54 69 14 95 11/22/17 08:00 98.0 F 82 19 91 L 11/22/17 07:19 94 L 11/22/17 07:18 94 15 94 L 11/22/17 04:00 99.3 F Weight Admit Weight 373 lb Weight 326 lb 11.601 oz Most Recent Monitor Data Heart Rate from ECG 105 NIBP 151/128 NIBP BP-Mean 141 Respiration from ECG 16 SpO2 100 I&O: 11/21/17 11/22/17 11/23/17 06:59 06:59 06:59 Intake Total 1114 1332 300 Output Total 4111 2186 400 Balance -526 -224 -100 Result Diagrams: 11/21/17 05:33 11/21/17 05:33 Additional Labs: Accuchecks 11/22/17 11/22/17 11/21/17 11:51 06:29 21:30 POC Glucose 132 H 139 H 147 H 11/21/17 17:45 POC Glucose 134 H Phys Exam - Physical Examination Constitutional: NAD Morbidly obese HEENT: moist MMs Respiratory: no wheezing, no rales, no rhonchi Cardiovascular: RRR Gastrointestinal: soft, non-tender, positive bowel sounds Musculoskeletal: pulses present very TTP top of left foot, no deformity, no rash, great DP pulse Neurological: non-focal Psychiatric: normal affect, A&O x 3 Dx/Plan (1) Acute encephalopathy Code(s): G93.40 - ENCEPHALOPATHY, UNSPECIFIED Status: Acute (2) Acute respiratory failure with hypoxia Code(s): J96.01 - ACUTE RESPIRATORY FAILURE WITH HYPOXIA Status: Acute Comment: Less lethargic today but a bit confused about his recent history. (3) DAVID (obstructive sleep apnea) Code(s): G47.33 - OBSTRUCTIVE SLEEP APNEA (ADULT) (PEDIATRIC) Status: Chronic (4) Obesity hypoventilation syndrome Code(s): E66.2 - MORBID (SEVERE) OBESITY WITH ALVEOLAR HYPOVENTILATION Status : Chronic (5) Bradyarrhythmia Code(s): I49.8 - OTHER SPECIFIED CARDIAC ARRHYTHMIAS Status: Acute Comment: secondary to hypoxia while sleeping, no need for pacemaker at this time per cardiology (6) Chronic venous stasis dermatitis of both lower extremities Code(s): I87.2 - VENOUS INSUFFICIENCY (CHRONIC) (PERIPHERAL) Status: Chronic (7) Wound of left lower extremity Code(s): S81.802A - UNSPECIFIED OPEN WOUND, LEFT LOWER LEG, INITIAL ENCOUNTER Status: Chronic Comment: Wound care following - Plan cont current plan of care, PT/OT, respiratory therapy, DVT proph w/lovenox X-ray left foot * . - Discharge Day Encounter end time: 14:15
--- NOTE | 2017-11-22 18:27 | RAD ---
LEFT FOOT THREE VIEWS: HISTORY: Pain. COMPARISON: None. FINDINGS: Mild bone demineralization. Lisfranc alignment is maintained. No fracture. No significant loss of joint space height. IMPRESSION: Unremarkable three views left foot. POS: PPP
[2017-11-22] MEDS: Haloperidol 5 MG TAB PO PRN (21:32)
[2017-11-23] MEDS: Enoxaparin Sodium 40 MG/0.4 ML SYRINGE SC SCH (09:22)
--- NOTE | 2017-11-23 11:17 | PRG ---
DATE OF SERVICE: 11/23/2017 SERVICE: Pulmonary Medicine. INTERVAL HISTORY: The patient is doing fine. He is breathing comfortably. There has been no interv al change to his condition, fevers, chills, nausea, vomiting, or chest discomfort. PHYSICAL EXAMINATION: VITAL SIGNS: Afebrile, pulse 103, blood pressure 112/80, respirations 11, saturation 99% on room air . GENERAL: The patient is awake, alert, in no apparent distress. LUNGS: Excellent air entry with no prolonged expiratory phase, wheezing, rhonchi, or crackles. HEART: Normal rate, regular. ABDOMEN: Soft, nontender, nondistended. Bowel sounds are positive. MUSCULOSKELETAL: No cyanosis or clubbing. No pitting in the bilateral lower extremities. NEUROLOGIC: Grossly nonfocal. LABORATORY DATA: Blood cultures x2 are unremarkable. IMAGING: Foot x-ray demonstrates no acute fracture or subluxation. ASSESSMENT: 1. Obesity hypoventilation syndrome. 2. Obstructive sleep apnea, severe, not able to tolerate therapy. 3. Bradyarrhythmia secondary to obstructive sleep apnea. DISCUSSION AND PLAN: We will remove the patient's Anderson catheter today. We will work on getting him into a chair as much as he can tolerate. Physical Therapy will continue working with him and will t ry to maintain his strength. He will remain in the hospital until he no longer requires the pacemake r.
--- NOTE | 2017-11-23 11:48 | PDOC.PN ---
- Subjective Encounter Start Date: 11/23/17 Encounter Start Time: 10:00 Patient seen and examined for tyrese. No new complaints. No overnight events - Objective Resuscitation Status: Resuscitation Status FULL:Full Resuscitation MAR Reviewed: Yes Vital Signs & Weight: Vital Signs (12 hours) Temp Pulse Resp Pulse Ox 11/23/17 08:00 98.2 F 66 24 H 96 11/23/17 06:48 92 L 11/23/17 06:46 100 17 92 L 11/23/17 04:00 99 F 11/23/17 00:31 92 13 94 L 11/23/17 00:00 99.3 F Weight Admit Weight 373 lb Weight 331 lb 5.676 oz Most Recent Monitor Data Heart Rate from ECG 103 NIBP 112/80 NIBP BP-Mean 87 Respiration from ECG 11 SpO2 99 I&O: 11/22/17 11/23/17 11/24/17 06:59 06:59 06:59 Intake Total 1332 1150 180 Output Total 1556 9492 330 Cgavmyw -754 -845 -150 Result Diagrams: 11/21/17 05:33 11/21/17 05:33 Additional Labs: Accuchecks 11/23/17 11/23/17 11/22/17 07:18 05:46 21:36 POC Glucose 134 H 136 H 141 H 11/22/17 11/22/17 17:09 11:51 POC Glucose 118 H 132 H Radiology Reviewed by me: Yes EKG Reviewed by me: Yes (nsr) Phys Exam - Physical Examination Constitutional: NAD HEENT: PERRLA, moist MMs, sclera anicteric Neck: no JVD, supple Respiratory: no wheezing, no rales, no rhonchi Cardiovascular: RRR, no significant murmur, no rub Gastrointestinal: soft, non-tender, no distention morbid obesity chronic venous stasis Neurological: non-focal Psychiatric: normal affect Skin: no rash, normal turgor Dx/Plan (1) Acute encephalopathy Code(s): G93.40 - ENCEPHALOPATHY, UNSPECIFIED Status: Acute (2) Acute respiratory failure with hypoxia Code(s): J96.01 - ACUTE RESPIRATORY FAILURE WITH HYPOXIA Status: Acute Comment: (3) Hypotension Status: Resolved (4) HLD (hyperlipidemia) Code(s): E78.5 - HYPERLIPIDEMIA, UNSPECIFIED Status: Chronic Comment: Nil acute (5) Lymphedema of both lower extremities Code(s): I89.0 - LYMPHEDEMA, NOT ELSEWHERE CLASSIFIED Status: Chronic Comment: stable (6) Morbid obesity with BMI of 45.0-49.9, adult Code(s): E66.01 - MORBID (SEVERE) OBESITY DUE TO EXCESS CALORIES; Z68.42 - BODY MASS INDEX (BMI) 45.0-49.9, ADULT Status: Chronic Comment: Nil acute (7) Tobacco abuse Code(s): Z72.0 - TOBACCO USE Status: Chronic (8) Wound of left lower extremity Code(s): S81.802A - UNSPECIFIED OPEN WOUND, LEFT LOWER LEG, INITIAL ENCOUNTER Status: Chronic Comment: Wound care following (9) TYRESE (obstructive sleep apnea) Code(s): G47.33 - OBSTRUCTIVE SLEEP APNEA (ADULT) (PEDIATRIC) Status: Chronic (10) Acute kidney failure Status: Resolved (11) Sinus pause Code(s): I45.5 - OTHER SPECIFIED HEART BLOCK Status: Acute Comment: pt is in normal sinus rhtyhm (12) Chronic venous stasis dermatitis of both lower extremities Code(s): I87.2 - VENOUS INSUFFICIENCY (CHRONIC) (PERIPHERAL) Status: Chronic (13) Homeless Code(s): Z59.0 - HOMELESSNESS Status: Chronic (14) Psychiatric disorder Code(s): F99 - MENTAL DISORDER, NOT OTHERWISE SPECIFIED Status: Chronic - Plan cont current plan of care, plan discussed w/ family * pt has external pacemaker, for bradycardia which he gets intermittently during sleep with hypoxia * he is non compliant with cpap/bipap * continue PT * discussed with mother bedside * discharge planning * medication reviewed as below * symptomatic treatment. Review of Systems - Review of Systems Other: not reliable with pt as he is still disoriented and confused - Medications/Allergies Allergies/Adverse Reactions: Allergies Allergy/AdvReac Type Severity Reaction Status Date / Time vancomycin Allergy Verified 11/09/17 05:23 Medications: Current Medications Acetaminophen (Tylenol) 650 mg WI Q4H PRN PRN Reason: Headache/Fever or Pain Acetaminophen (Tylenol) 650 mg PER TUBE Q4H PRN PRN Reason: Headache/Fever or Pain Last Admin: 11/22/17 20:42 Dose: 650 mg Albuterol/Ipratropium (Duoneb) 3 ml NEB [id number] RADHA Last Admin: 11/23/17 06:46 Dose: 3 ml Atropine Sulfate (Atropine) 1 mg IVP Q4H PRN PRN Reason: BRADYCARDIA < 30 Last Admin: 11/13/17 23:44 Dose: 1 mg Bisacodyl (Dulcolax) 10 mg WI Q24H PRN PRN Reason: Constipation Dextrose/Water (Dextrose 50%) 25 gm SLOW IVP PRN PRN PRN Reason: Hypoglycemia Enoxaparin Sodium (Lovenox) 40 mg SC 0900 [facility] Last Admin: 11/23/17 09:22 Dose: 40 mg Glucagon (Glucagon) 1 mg IM PRN PRN PRN Reason: Hypoglycemia Haloperidol (Haldol) 10 mg PO BIDPRN PRN PRN Reason: Agitation Last Admin: 11/22/17 21:32 Dose: 10 mg Hydralazine HCl (Apresoline) 10 mg SLOW IVP Q4H PRN PRN Reason: FOR SBP >160 Last Admin: 11/17/17 21:14 Dose: 10 mg Dextrose/Water (D5w) 1,000 mls @ 0 mls/hr IV .Q0M PRN; As Directed PRN Reason: Hypoglycemia Insulin Human Lispro (Humalog) 0 units SC .AGGRESSIVE SLIDING PRN; Protocol PRN Reason: AGGRESSIVE SLIDING SCALE Last Admin: 11/20/17 11:14 Dose: 3 unit Lorazepam (Ativan) 0.5 mg SLOW IVP Q6H PRN PRN Reason: Agitation Last Admin: 11/18/17 22:56 Dose: 0.5 mg Discontinue Previous Narcotic Pain Medications And Benzodiazepines 1 each FS .ONE [facility] Stop: 12/09/17 02:19 Ondansetron HCl (Zofran) 4 mg IVP Q6H PRN PRN Reason: Nausea/Vomiting Pantoprazole Sodium (Protonix) 40 mg PO 0900 [facility] Last Admin: 11/23/17 09:22 Dose: 40 mg Sodium Chloride (Flush - Normal Saline) 10 ml IVF Q12HR [facility] Last Admin: 11/23/17 09:22 Dose: 10 ml Sodium Chloride (Flush - Normal Saline) 10 ml IVF PRN PRN PRN Reason: Saline Flush Last Admin: 11/19/17 08:13 Dose: 10 ml
[2017-11-23] MEDS: Haloperidol 5 MG TAB PO PRN (19:47)
[2017-11-23] MEDS: Acetaminophen 325 MG TAB PER TUBE PRN (19:48)
[2017-11-24 05:48] LABS: #Basophils 0.1 thou/uL (0.0-0.2); #Eosinphils 0.2 thou/uL (0.0-0.7); #Lymphocytes 2.3 thou/uL (1.20-3.40); #Monocytes 0.5 thou/uL (0.11-0.59); #Neutrophils 6.4 thou/uL (1.40-6.50); %Basophils 0.6 % (0.0-1.0); %Eosinophils 2.1 % (0.0-10.0); %Lymphocytes 24.5 % (21.0-51.0); %Monocytes 5.3 % (0.0-10.0); %Neutrophils 67.5 % (42.0-75.0); Mean Corpuscular HGB CONC 33.5 g/dL (32.0-36.0); Mean Corpuscular Hemoglobin 29.1 pg (27.0-31.0); Mean Corpuscular Volume 86.8 fl (80.0-94.0); Mean Platelet Volume 6.5 fL (7.4-10.4); Platelet Count 191 thou/uL (130-400); RBC Distribution Width 14.6 % (11.5-14.5); Red Blood Cell (RBC) Count 4.49 mill/uL (4.70-6.10); White Blood Cell (WBC) Count 9.5 thou/uL (4.8-10.8)
[2017-11-24 06:04] LABS: Anion Gap 11 mmol/L (10-20); BUN (Urea Nitrogen) 15 mg/dL (8.9-20.6); Calc. Creatinine Clearance 292 mL/min (70-130); Calcium 9.2 mg/dL (7.8-10.44); Carbon Dioxide 28 mmol/L (22-29); Chloride 99 mmol/L (98-107); Estimated GFR-MDRD Greater than 90; Glucose 129 mg/dL (70-105); Magnesium 1.6 mg/dL (1.6-2.6); Phosphorus 4.2 mg/dL (2.3-4.7); Potassium 3.2 mmol/L (3.5-5.1); Sodium 135 mmol/L (136-145)
[2017-11-24] MEDS: Enoxaparin Sodium 40 MG/0.4 ML SYRINGE SC SCH (08:55)
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
--- NOTE | 2017-11-24 10:28 | PDOC.PN ---
- Subjective Encounter Start Date: 11/24/17 Encounter Start Time: 09:50 Patient seen and examined for tyrese. No new complaints. No overnight events today he is seated on chair, more alert - Objective Resuscitation Status: Resuscitation Status DNR:Do Not Resuscitate MAR Reviewed: Yes Vital Signs & Weight: Vital Signs (12 hours) Temp Pulse Resp Pulse Ox 11/24/17 08:00 98.4 F 11/24/17 04:00 97.9 F 11/24/17 00:45 70 21 H 95 11/24/17 00:00 98 F Weight Admit Weight 373 lb Weight 324 lb 15.382 oz Most Recent Monitor Data Heart Rate from ECG 79 NIBP 177/100 NIBP BP-Mean 119 Respiration from ECG 19 SpO2 100 I&O: 11/23/17 11/24/17 11/25/17 06:59 06:59 06:59 Intake Total 1150 1410 420 Output Total 1994 2460 0 Balance -845 -1050 420 Result Diagrams: 11/24/17 05:30 11/24/17 05:30 Additional Labs: Accuchecks 11/24/17 11/23/17 11/23/17 05:27 19:55 16:29 POC Glucose 123 H 144 H 130 H 11/23/17 11:47 POC Glucose 140 H EKG Reviewed by me: Yes (tachycardia) Phys Exam - Physical Examination Constitutional: NAD HEENT: PERRLA, moist MMs, sclera anicteric Neck: no JVD, supple Respiratory: no wheezing, no rales, no rhonchi Cardiovascular: RRR, no significant murmur, no rub tachycardia Gastrointestinal: soft, non-tender, no distention, positive bowel sounds morbid obesity chronic stasis changes Neurological: moves all 4 limbs Lymphatic: no nodes Psychiatric: normal affect Skin: normal turgor Dx/Plan (1) Acute encephalopathy Code(s): G93.40 - ENCEPHALOPATHY, UNSPECIFIED Status: Resolved (2) Acute respiratory failure with hypoxia Code(s): J96.01 - ACUTE RESPIRATORY FAILURE WITH HYPOXIA Status: Acute Comment: (3) Hypotension Status: Resolved (4) HLD (hyperlipidemia) Code(s): E78.5 - HYPERLIPIDEMIA, UNSPECIFIED Status: Chronic Comment: Nil acute (5) Lymphedema of both lower extremities Code(s): I89.0 - LYMPHEDEMA, NOT ELSEWHERE CLASSIFIED Status: Chronic Comment: stable (6) Morbid obesity with BMI of 45.0-49.9, adult Code(s): E66.01 - MORBID (SEVERE) OBESITY DUE TO EXCESS CALORIES; Z68.42 - BODY MASS INDEX (BMI) 45.0-49.9, ADULT Status: Chronic Comment: Nil acute (7) Tobacco abuse Code(s): Z72.0 - TOBACCO USE Status: Chronic (8) Wound of left lower extremity Code(s): S81.802A - UNSPECIFIED OPEN WOUND, LEFT LOWER LEG, INITIAL ENCOUNTER Status: Chronic Comment: Wound care following (9) TYRESE (obstructive sleep apnea) Code(s): G47.33 - OBSTRUCTIVE SLEEP APNEA (ADULT) (PEDIATRIC) Status: Chronic (10) Acute kidney failure Status: Resolved (11) Sinus pause Code(s): I45.5 - OTHER SPECIFIED HEART BLOCK Status: Acute Comment: pt is in normal sinus rhtyhm (12) Chronic venous stasis dermatitis of both lower extremities Code(s): I87.2 - VENOUS INSUFFICIENCY (CHRONIC) (PERIPHERAL) Status: Chronic (13) Homeless Code(s): Z59.0 - HOMELESSNESS Status: Chronic (14) Psychiatric disorder Code(s): F99 - MENTAL DISORDER, NOT OTHERWISE SPECIFIED Status: Chronic - Plan cont current plan of care * overall stable * he needs cpap/bipap * still has external pacemaker * medication reviewed as below * symptomatic treatment * when all senior consultant are ok, then will consider transfer and then he will need discharge planning. Review of Systems - Review of Systems Eyes: negative: Pain, Vision Change, Conjunctivae Inflammation, Eyelid Inflammation, Redness, Other ENT: negative: Ear Pain, Ear Discharge, Nose Pain, Nose Discharge, Nose Congestion, Mouth Pain, Mouth Swelling, Throat Pain, Throat Swelling, Other Respiratory: negative: Cough, Dry, Shortness of Breath, Hemoptysis, SOB with Excertion, Pleuritic Pain, Sputum, Wheezing Cardiovascular: negative: chest pain, palpitations, orthopnea, paroxysmal nocturnal dyspnea, edema, light headedness, other Gastrointestinal: negative: Nausea, Vomiting, Abdominal Pain, Diarrhea, Constipation, Melena, Hematochezia, Other Genitourinary: negative: Dysuria, Frequency, Incontinence, Hematuria, Retention , Other Musculoskeletal: negative: Neck Pain, Shoulder Pain, Arm Pain, Back Pain, Hand Pain, Leg Pain, Foot Pain, Other Skin: negative: Rash, Lesions, Son, Bruising, Other - Medications/Allergies Allergies/Adverse Reactions: Allergies Allergy/AdvReac Type Severity Reaction Status Date / Time vancomycin Allergy Verified 11/09/17 05:23 Medications: Current Medications Acetaminophen (Tylenol) 650 mg AL Q4H PRN PRN Reason: Headache/Fever or Pain Acetaminophen (Tylenol) 650 mg PER TUBE Q4H PRN PRN Reason: Headache/Fever or Pain Last Admin: 11/23/17 19:48 Dose: 650 mg Albuterol/Ipratropium (Duoneb) 3 ml NEB [id number] [facility] Last Admin: 11/24/17 00:45 Dose: 3 ml Atropine Sulfate (Atropine) 1 mg IVP Q4H PRN PRN Reason: BRADYCARDIA < 30 Last Admin: 11/13/17 23:44 Dose: 1 mg Bisacodyl (Dulcolax) 10 mg AL Q24H PRN PRN Reason: Constipation Dextrose/Water (Dextrose 50%) 25 gm SLOW IVP PRN PRN PRN Reason: Hypoglycemia Enoxaparin Sodium (Lovenox) 40 mg SC 0900 [facility] Last Admin: 11/24/17 08:55 Dose: 40 mg Glucagon (Glucagon) 1 mg IM PRN PRN PRN Reason: Hypoglycemia Haloperidol (Haldol) 10 mg PO BIDPRN PRN PRN Reason: Agitation Last Admin: 11/23/17 19:47 Dose: 10 mg Hydralazine HCl (Apresoline) 10 mg SLOW IVP Q4H PRN PRN Reason: FOR SBP >160 Last Admin: 11/17/17 21:14 Dose: 10 mg Dextrose/Water (D5w) 1,000 mls @ 0 mls/hr IV .Q0M PRN; As Directed PRN Reason: Hypoglycemia Insulin Human Lispro (Humalog) 0 units SC .AGGRESSIVE SLIDING PRN; Protocol PRN Reason: AGGRESSIVE SLIDING SCALE Last Admin: 11/20/17 11:14 Dose: 3 unit Lorazepam (Ativan) 0.5 mg SLOW IVP Q6H PRN PRN Reason: Agitation Last Admin: 11/18/17 22:56 Dose: 0.5 mg Discontinue Previous Narcotic Pain Medications And Benzodiazepines 1 each FS .ONE [facility] Stop: 12/09/17 02:19 Ondansetron HCl (Zofran) 4 mg IVP Q6H PRN PRN Reason: Nausea/Vomiting Pantoprazole Sodium (Protonix) 40 mg PO 0900 [facility] Last Admin: 11/24/17 08:55 Dose: 40 mg Sodium Chloride (Flush - Normal Saline) 10 ml IVF Q12HR [facility] Last Admin: 11/24/17 09:15 Dose: 10 ml Sodium Chloride (Flush - Normal Saline) 10 ml IVF PRN PRN PRN Reason: Saline Flush Last Admin: 11/19/17 08:13 Dose: 10 ml
[2017-11-24] MEDS ORDERED: Potassium Chloride 20 MEQ TAB PO SCH (13:30)
--- NOTE | 2017-11-24 13:35 | PRG ---
DATE OF SERVICE: 11/24/2017 SUBJECTIVE: Mr. aKrlo Chau continues to refuse CPAP. He refused nasal pillows that we got for him on Friday, then today denies anybody tried anything like that on him. OBJECTIVE: VITAL SIGNS: His blood pressure is 145/68, heart rate 96, respiratory rate 20, oximetry is 95. LUNGS: Clear. HEART: Regular rhythm. ABDOMEN: Soft. EXTREMITIES: Unchanged and very cyanotic when he is in the sitting position. IMPRESSION: Advanced sleep apnea, discussed tracheostomy with him. I would treat his sleep apnea an d eliminate the bradycardia, but he refuses the tracheostomy. Discharge planning is the next step on ce Cardiology decides whether or not they feel he needs a permanent pacing. That in itself is not wi thout significant risk. He is stable to move to the telemetry unit. We will take the patient with a temporary pacemaker. If not, then he stays in the Critical Care Unit.
[2017-11-24] MEDS: Acetaminophen 325 MG TAB PER TUBE PRN (20:26)
[2017-11-24] MEDS: Haloperidol 5 MG TAB PO PRN (20:27)
[2017-11-25] MEDS: Enoxaparin Sodium 40 MG/0.4 ML SYRINGE SC SCH (09:00)
--- NOTE | 2017-11-25 09:58 | PDOC.PN ---
- Subjective Encounter Start Date: 11/25/17 Encounter Start Time: 09:20 Patient seen and examined for DAVID. No new complaints. No overnight events - Objective Resuscitation Status: Resuscitation Status DNR:Do Not Resuscitate MAR Reviewed: Yes Vital Signs & Weight: Vital Signs (12 hours) Temp Pulse Resp Pulse Ox 11/25/17 07:56 110 H 20 100 11/25/17 00:00 98.9 F 11/24/17 23:47 106 H 14 100 Weight Admit Weight 373 lb Weight 319 lb 7.197 oz Most Recent Monitor Data Heart Rate from ECG 75 NIBP 156/102 NIBP BP-Mean 140 Respiration from ECG 17 SpO2 96 I&O: 11/24/17 11/25/17 11/26/17 06:59 06:59 06:59 Intake Total 1410 1330 Output Total 2460 2425 Balance -1050 -1095 Result Diagrams: 11/24/17 05:30 11/24/17 05:30 Additional Labs: Accuchecks 11/25/17 11/24/17 11/24/17 06:34 17:35 11:29 POC Glucose 134 H 140 H 111 H EKG Reviewed by me: Yes (sinus tachycardia) Phys Exam - Physical Examination Constitutional: NAD HEENT: PERRLA, moist MMs, sclera anicteric Neck: no JVD, supple Respiratory: no wheezing, no rales, no rhonchi Cardiovascular: RRR, no significant murmur, no rub pacemaker external+ Gastrointestinal: soft, non-tender, no distention, positive bowel sounds morbid obesity chronic venosus stasis Neurological: non-focal Lymphatic: no nodes Psychiatric: normal affect Skin: no rash, normal turgor Dx/Plan (1) Acute encephalopathy Code(s): G93.40 - ENCEPHALOPATHY, UNSPECIFIED Status: Resolved (2) Acute respiratory failure with hypoxia Code(s): J96.01 - ACUTE RESPIRATORY FAILURE WITH HYPOXIA Status: Acute Comment: (3) Hypotension Status: Resolved (4) HLD (hyperlipidemia) Code(s): E78.5 - HYPERLIPIDEMIA, UNSPECIFIED Status: Chronic Comment: Nil acute (5) Lymphedema of both lower extremities Code(s): I89.0 - LYMPHEDEMA, NOT ELSEWHERE CLASSIFIED Status: Chronic Comment: stable (6) Morbid obesity with BMI of 45.0-49.9, adult Code(s): E66.01 - MORBID (SEVERE) OBESITY DUE TO EXCESS CALORIES; Z68.42 - BODY MASS INDEX (BMI) 45.0-49.9, ADULT Status: Chronic Comment: Nil acute (7) Tobacco abuse Code(s): Z72.0 - TOBACCO USE Status: Chronic (8) Wound of left lower extremity Code(s): S81.802A - UNSPECIFIED OPEN WOUND, LEFT LOWER LEG, INITIAL ENCOUNTER Status: Chronic Comment: Wound care following (9) DAVID (obstructive sleep apnea) Code(s): G47.33 - OBSTRUCTIVE SLEEP APNEA (ADULT) (PEDIATRIC) Status: Chronic (10) Acute kidney failure Status: Resolved (11) Sinus pause Code(s): I45.5 - OTHER SPECIFIED HEART BLOCK Status: Acute Comment: pt is in normal sinus rhtyhm (12) Chronic venous stasis dermatitis of both lower extremities Code(s): I87.2 - VENOUS INSUFFICIENCY (CHRONIC) (PERIPHERAL) Status: Chronic (13) Homeless Code(s): Z59.0 - HOMELESSNESS Status: Chronic (14) Psychiatric disorder Code(s): F99 - MENTAL DISORDER, NOT OTHERWISE SPECIFIED Status: Chronic - Plan cont current plan of care * at this point he has external pacemaker, cardiology to decide if permanant pacemaker or not * he is noncomliant with CPAP * medication reviewed as below * symptomatic treatment. Review of Systems - Review of Systems Eyes: negative: Pain, Vision Change, Conjunctivae Inflammation, Eyelid Inflammation, Redness, Other ENT: negative: Ear Pain, Ear Discharge, Nose Pain, Nose Discharge, Nose Congestion, Mouth Pain, Mouth Swelling, Throat Pain, Throat Swelling, Other Respiratory: negative: Cough, Dry, Shortness of Breath, Hemoptysis, SOB with Excertion, Pleuritic Pain, Sputum, Wheezing Cardiovascular: negative: chest pain, palpitations, orthopnea, paroxysmal nocturnal dyspnea, edema, light headedness, other Gastrointestinal: negative: Nausea, Vomiting, Abdominal Pain, Diarrhea, Constipation, Melena, Hematochezia, Other Genitourinary: negative: Dysuria, Frequency, Incontinence, Hematuria, Retention , Other Musculoskeletal: negative: Neck Pain, Shoulder Pain, Arm Pain, Back Pain, Hand Pain, Leg Pain, Foot Pain, Other Skin: negative: Rash, Lesions, Son, Bruising, Other - Medications/Allergies Allergies/Adverse Reactions: Allergies Allergy/AdvReac Type Severity Reaction Status Date / Time vancomycin Allergy Verified 11/09/17 05:23 Medications: Current Medications Acetaminophen (Tylenol) 650 mg MS Q4H PRN PRN Reason: Headache/Fever or Pain Acetaminophen (Tylenol) 650 mg PER TUBE Q4H PRN PRN Reason: Headache/Fever or Pain Last Admin: 11/24/17 20:26 Dose: 650 mg Albuterol/Ipratropium (Duoneb) 3 ml NEB [id number] [facility] Last Admin: 11/25/17 07:56 Dose: 3 ml Atropine Sulfate (Atropine) 1 mg IVP Q4H PRN PRN Reason: BRADYCARDIA < 30 Last Admin: 11/13/17 23:44 Dose: 1 mg Bisacodyl (Dulcolax) 10 mg MS Q24H PRN PRN Reason: Constipation Dextrose/Water (Dextrose 50%) 25 gm SLOW IVP PRN PRN PRN Reason: Hypoglycemia Enoxaparin Sodium (Lovenox) 40 mg SC 0900 [facility] Last Admin: 11/24/17 08:55 Dose: 40 mg Glucagon (Glucagon) 1 mg IM PRN PRN PRN Reason: Hypoglycemia Hydralazine HCl (Apresoline) 10 mg SLOW IVP Q4H PRN PRN Reason: FOR SBP >160 Last Admin: 11/17/17 21:14 Dose: 10 mg Dextrose/Water (D5w) 1,000 mls @ 0 mls/hr IV .Q0M PRN; As Directed PRN Reason: Hypoglycemia Insulin Human Lispro (Humalog) 0 units SC .AGGRESSIVE SLIDING PRN; Protocol PRN Reason: AGGRESSIVE SLIDING SCALE Last Admin: 11/20/17 11:14 Dose: 3 unit Lorazepam (Ativan) 0.5 mg SLOW IVP Q6H PRN PRN Reason: Agitation Last Admin: 11/18/17 22:56 Dose: 0.5 mg Discontinue Previous Narcotic Pain Medications And Benzodiazepines 1 each FS .ONE [facility] Stop: 12/09/17 02:19 Ondansetron HCl (Zofran) 4 mg IVP Q6H PRN PRN Reason: Nausea/Vomiting Sodium Chloride (Flush - Normal Saline) 10 ml IVF Q12HR [facility] Last Admin: 11/24/17 20:33 Dose: 10 ml Sodium Chloride (Flush - Normal Saline) 10 ml IVF PRN PRN PRN Reason: Saline Flush Last Admin: 11/19/17 08:13 Dose: 10 ml
[2017-11-25 11:56] VITALS: BP 129/94
[2017-11-25 16:29] VITALS: TEMP 98.1
--- NOTE | 2017-11-25 18:47 | PRG ---
DATE OF SERVICE: 11/25/2017 SUBJECTIVE: Karlo Chau is becoming increasingly difficult to deal with from a nursing perspective and physician perspective, he is basically refusing everything. His pacemaker has been removed today. He informed the nurses this afternoon that he wanted to sign against medical advice. He was seen by [facility] who gave him a card and felt that he was stable to leave the hospital. He is certainly not a th reat to anyone else and his only a threat to himself because of his noncompliance. It is unclear to me what his underlying mental diagnosis would be. I feel less and less that he is schizophrenic, per haps he is schizoaffective as history of borderline personality. Since I have no training in this ar ea, I certainly will not prescribe anything for these disorders and I am very confident that he would not take anything we would prescribe. It has been explained to him that failing to treat his sleep apnea will probably lead to his demise. He appeared to be able to repeat this to me each day that I came in for the last few days, so he is going to try to lose weight. I believe he signed leaving against medical advice forms today.
--- NOTE | 2017-11-26 12:22 | DIS ---
DATE OF ADMISSION: 11/08/2017 DATE OF DISCHARGE: 11/25/2017 PRIMARY CARE PHYSICIAN: [facility] call admission. DISCHARGE DISPOSITION: Home against medical advice. PRIMARY DISCHARGE DIAGNOSES: Acute respiratory failure with hypoxia; bradyarrhythmia due to vasovaga l/hypoxia; sinus pause, required temporary pacemaker; chronic venous stasis dermatitis of both lower extremities; morbid obesity, obstructive sleep apnea; acute kidney failure, improved; acute metabolic encephalopathy, resolved; wound over left lower extremity; hypotension, resolved. SECONDARY DISCHARGE DIAGNOSES: Unknown psychiatric disorder, obstructive sleep apnea, morbid obesity , chronic venous stasis, tobacco abuse disorder, noncompliance with the treatment, obesity hypoventil ation syndrome, chronic lymphoedema of both lower extremities, dyslipidemia, homeless. PRIMARY PROCEDURE/OPERATION: Endotracheal intubation and mechanical ventilatory support. RADIOLOGICAL INVESTIGATION: Chest x-ray, foot x-ray. SIGNIFICANT LABORATORY DATA: Hemoglobin 13.0, creatinine 0.75. Urinalysis normal. Urine drug scree n unremarkable. Wound culture grew E. coli, Streptococcus Enterococcus. Blood culture negative. DISCHARGE MEDICATIONS: Patient left hospital against medical advice without any prescriptions. HOSPITAL COURSE: A 36-year-old male who initially came to emergency room for his bilateral lower ext remity chronic venous stasis dermatitis with a left lower extremity wound and it was appeared to be i nfected. He was having drainage. He was not able to take care of himself. He was homeless begin . He was not taking care of his wound, which was there for a long period of time and he was also a dmitted at one point at [facility] recently. In the emergency room, he had acute decompensation required intubation. Subsequently, the patient wa s admitted in CCU. Pulmonary group was managing ventilator. We noticed that this patient was having bradyarrhythmia with vasovagal type of reaction and that is why Cardiology saw this patient and they put a temporary pacemaker. Ultimately, we attributed his bradyarrhythmia with hypoxia because he wa s noncompliant with CPAP machine. At one point, he had code blue and required a repeat intubation. After admission, he self-extubated, required reintubation. Eventually Pulmonary group was able to manage him to extubate and subsequently, we were trying to use BiPAP and CPAP machine while in ICU, but he was noncompliant. He decided by himself to be DNR. The patient decided to leave against medical advice. He was able to make his own decision. He was m entally competent. The patient's mother also agreed with that decision. The patient left hospital against medical advice. His prognosis is guarded. He is at risk for his l remy given noncompliance with CPAP and BiPAP machine. We provided extensive counseling to be complian t with medication as well as using CPAP machine, but he is not understanding that part and he is okay with going home against medical advice. The patient is seen and examined on the day of AMA. Please see my progress note from that day.
== END 2017-11-25 15:40 | disposition left against medical advice (07) | DRG 207 ==
LOC: ERS 16:57 → CCU 21:11
PROVIDERS: ADMIT Internal Medicine; ATTEND Internal Medicine
PROC: 0BH17EZ Insertion of Endotracheal Airway into Trachea, Via Natural or Artificial Opening (ICD-10-PCS; principal; 2017-11-08)
PROC: 5A1935Z Respiratory Ventilation, Less than 24 Consecutive Hours (ICD-10-PCS; 2017-11-08)
PROC: 02HV33Z Insertion of Infusion Device into Superior Vena Cava, Percutaneous Approach (ICD-10-PCS; 2017-11-08)
PROC: 3E043XZ Introduction of Vasopressor into Central Vein, Percutaneous Approach (ICD-10-PCS; 2017-11-08)
PROC: 5A1955Z Respiratory Ventilation, Greater than 96 Consecutive Hours (ICD-10-PCS; 2017-11-09)
PROC: 02HK3JZ Insertion of Pacemaker Lead into Right Ventricle, Percutaneous Approach (ICD-10-PCS; 2017-11-09)
PROC: 0BH17EZ Insertion of Endotracheal Airway into Trachea, Via Natural or Artificial Opening (ICD-10-PCS; 2017-11-09)
PROC: 5A12012 Performance of Cardiac Output, Single, Manual (ICD-10-PCS; 2017-11-13)
PROC: 02HK3JZ Insertion of Pacemaker Lead into Right Ventricle, Percutaneous Approach (ICD-10-PCS; 2017-11-14)
PROC: 5A09357 Assistance with Respiratory Ventilation, Less than 24 Consecutive Hours, Continuous Positive Airway Pressure (ICD-10-PCS; 2017-11-20)
DX: J96.01 Acute respiratory failure with hypoxia (principal); G93.41 Metabolic encephalopathy; R65.20 Severe sepsis without septic shock; I46.2 Cardiac arrest due to underlying cardiac condition; L03.116 Cellulitis of left lower limb; E66.2 Morbid (severe) obesity with alveolar hypoventilation; N17.9 Acute kidney failure, unspecified; Z66 Do not resuscitate; E78.5 Hyperlipidemia, unspecified; I89.0 Lymphedema, not elsewhere classified; S81.812A Laceration without foreign body, left lower leg, initial encounter; G47.33 Obstructive sleep apnea (adult) (pediatric); F17.210 Nicotine dependence, cigarettes, uncomplicated; E11.40 Type 2 diabetes mellitus with diabetic neuropathy, unspecified; I45.5 Other specified heart block; R00.1 Bradycardia, unspecified; I95.89 Other hypotension; F12.11 Cannabis abuse, in remission; E11.51 Type 2 diabetes mellitus with diabetic peripheral angiopathy without gangrene; I87.8 Other specified disorders of veins; E87.6 Hypokalemia; K21.9 Gastro-esophageal reflux disease without esophagitis; F99 Mental disorder, not otherwise specified; Z59.0 Homelessness; V99.XXXA Unspecified transport accident, initial encounter; Y92.9 Unspecified place or not applicable; Z78.1 Physical restraint status; Z91.14 Patient's other noncompliance with medication regimen; Z91.19 Patient's noncompliance with other medical treatment and regimen; Z86.69 Personal history of other diseases of the nervous system and sense organs
CPT/HCPCS: 31500; 33210; 36416; 36556; 51702; 71045; 75820; 76942; 80048; 80053; 80306; 81003; 81015; 82533; 82553; 82805; 83605; 83735; 84100; 84484; 85007; 85025; 85027; 87040; 87070; 87077; 87186; 87205; 93005; 93010; 93306; 93970; 94002; 94003; 94640; 94660; 96361; 96365; 96366; 96367; 96375; 96376; 99406; A4216; C1769; C1898; C9113; G8978-GP-CM; G8979-GP-CI; G8996-GN-CJ; G8997-GN-CI; J0171; J0360; J0461; J1200; J1630; J1644; J1650; J1720; J1940; J2001; J2060; J2543; J2704; J2920; J3010; J3370; J3480; J7050; J7620; S0028

== ENCOUNTER 2020-12-06 11:51 | Emergency (ER) | payer SELFPAY ==
[2020-12-06 13:21] LABS: Actual Bicarbonate (HCO3a) 28.2 mEq/L (22-28); Analyzer IN Cardio ER; Base Excess (BEa) 2.5 mEq/L (-2.0 to +3.0); CO2 Tension 47.2 mmHg (35.0-45.0); Calcium, Ionized (arterial) 1.13 mmol/L (1.12-1.30); Carboxyhemoglobin (COHb) 3.3 gm% (0.0-3.0); Hemoglobin (Hb) 16.4 g/dL (14.0-18.0); O2 Tension (PaO2), arterial 72.8 mmHg (80.0-100.0); Potassium - ABG Lab 4.09 mmol/L (3.70-5.30); pH, Arterial 7.39 (7.35-7.45)
[2020-12-06 13:23] LABS: #Basophils 0.1 thou/uL (0.0-0.2); #Eosinphils 0.1 thou/uL (0.0-0.7); #Lymphocytes 2.8 thou/uL (1.20-3.40); #Monocytes 0.7 thou/uL (0.11-0.59); #Neutrophils 7.2 thou/uL (1.40-6.50); %Basophils 0.7 % (0.0-1.0); %Lymphocytes 25.5 % (21.0-51.0); %Monocytes 6.7 % (0.0-10.0); %Neutrophils 66.1 % (42.0-75.0); Hemoglobin 15.8 g/dL (14.0-18.0); Mean Corpuscular HGB CONC 33.3 g/dL (32.0-36.0); Mean Corpuscular Hemoglobin 29.7 pg (27.0-31.0); Mean Corpuscular Volume 89.4 fL (78.0-98.0); Mean Platelet Volume 7.3 fL (7.4-10.4); Platelet Count 181 thou/uL (130-400); RBC Distribution Width 14.3 % (11.5-14.5); White Blood Cell (WBC) Count 10.8 thou/uL (4.8-10.8)
[2020-12-06 13:23] LABS: Puncture Site RRA
[2020-12-06 13:43] LABS: ALT (SGPT) 37 U/L (8-55); AST (SGOT) 22 U/L (5-34); Albumin 3.5 g/dL (3.5-5.0); Alkaline Phosphatase 111 U/L (40-110); Anion Gap 13 mmol/L (10-20); BUN (Urea Nitrogen) 13 mg/dL (8.9-20.6); Bilirubin, Total 0.6 mg/dL (0.2-1.2); Calc. Creatinine Clearance 0 mL/min (70-130); Calcium 8.7 mg/dL (7.8-10.44); Carbon Dioxide 23 mmol/L (22-29); Chloride 100 mmol/L (98-107); Globulin 3.7 g/dL (2.4-3.5); Glucose 165 mg/dL (70-105); Magnesium 1.7 mg/dL (1.6-2.6); Potassium 4.6 mmol/L (3.5-5.1); Protein, Total 7.2 g/dL (6.0-8.3); Sodium 131 mmol/L (136-145)
== END 2020-12-06 14:25 ==
LOC: ERS 11:51
DX: F41.1 Generalized anxiety disorder (principal); Z79.4 Long term (current) use of insulin; I25.10 Atherosclerotic heart disease of native coronary artery without angina pectoris; I25.2 Old myocardial infarction; G47.30 Sleep apnea, unspecified; E11.9 Type 2 diabetes mellitus without complications; E66.9 Obesity, unspecified; F17.210 Nicotine dependence, cigarettes, uncomplicated
CPT/HCPCS: 36600; 71045; 80053; 82805; 83735; 84484; 85025; 93005; 94760

== ENCOUNTER 2021-01-02 11:42 | Emergency (ER) | payer SELFPAY ==
[2021-01-02 12:56] LABS: #Basophils 0.1 thou/uL (0.0-0.2); #Eosinphils 0.2 thou/uL (0.0-0.7); #Lymphocytes 2.5 thou/uL (1.20-3.40); #Monocytes 0.6 thou/uL (0.11-0.59); %Basophils 1.3 % (0.0-1.0); %Eosinophils 1.7 % (0.0-10.0); %Lymphocytes 26.5 % (21.0-51.0); %Monocytes 6.6 % (0.0-10.0); Hemoglobin 16.4 g/dL (14.0-18.0); Mean Corpuscular HGB CONC 35.1 g/dL (32.0-36.0); Mean Corpuscular Hemoglobin 30.9 pg (27.0-31.0); Mean Corpuscular Volume 88.2 fL (78.0-98.0); Mean Platelet Volume 7.3 fL (7.4-10.4); Platelet Count 178 thou/uL (130-400); RBC Distribution Width 13.9 % (11.5-14.5); Red Blood Cell (RBC) Count 5.29 mill/uL (4.70-6.10); White Blood Cell (WBC) Count 9.3 thou/uL (4.8-10.8)
[2021-01-02 13:18] LABS: ALT (SGPT) 37 U/L (8-55); AST (SGOT) 21 U/L (5-34); Albumin 3.7 g/dL (3.5-5.0); Alkaline Phosphatase 122 U/L (40-110); Anion Gap 12 mmol/L (10-20); BUN (Urea Nitrogen) 11 mg/dL (8.9-20.6); Bilirubin, Total 0.6 mg/dL (0.2-1.2); Calc. Creatinine Clearance 0 mL/min (70-130); Calcium 9.2 mg/dL (7.8-10.44); Carbon Dioxide 27 mmol/L (22-29); Chloride 99 mmol/L (98-107); Globulin 3.5 g/dL (2.4-3.5); Glucose 155 mg/dL (70-105); Potassium 4.2 mmol/L (3.5-5.1); Protein, Total 7.2 g/dL (6.0-8.3); Sodium 134 mmol/L (136-145)
== END 2021-01-02 13:41 | disposition home or self-care (01) ==
LOC: EEVIPCON 11:42 → ERS 11:42
DX: I89.0 Lymphedema, not elsewhere classified (principal); I87.8 Other specified disorders of veins; I25.10 Atherosclerotic heart disease of native coronary artery without angina pectoris; I25.2 Old myocardial infarction; G47.30 Sleep apnea, unspecified; E11.42 Type 2 diabetes mellitus with diabetic polyneuropathy; E66.9 Obesity, unspecified; Z79.4 Long term (current) use of insulin
CPT/HCPCS: 36415; 36416; 80053; 85025; 93005

== ENCOUNTER 2021-05-10 15:53 | Emergency (ER) | payer OTHER, SELFPAY | END 2021-05-10 17:25 | disposition home or self-care (01) | LOC: ERS 15:53 | DX: S00.83XA Contusion of other part of head, initial encounter (principal); M25.571 Pain in right ankle and joints of right foot; H74.8X2 Other specified disorders of left middle ear and mastoid; I25.10 Atherosclerotic heart disease of native coronary artery without angina pectoris; I25.2 Old myocardial infarction; E11.40 Type 2 diabetes mellitus with diabetic neuropathy, unspecified; E66.9 Obesity, unspecified; G47.30 Sleep apnea, unspecified; Z79.4 Long term (current) use of insulin; Z87.19 Personal history of other diseases of the digestive system; V89.2XXA Person injured in unspecified motor-vehicle accident, traffic, initial encounter | CPT/HCPCS: 70450; 70486; 72125 ==